=== PATIENT | female | born 1960 | race Caucasian/White ===

== ENCOUNTER 2022-08-11 07:02 | Outpatient (OUT) | payer OTHER, SELFPAY ==
--- NOTE | 2022-08-11 07:30 | NM_ITS ---
Patient: JUAN ANTONIO KEATING Exam Date: 08/11/2022 : 1960 Gender:F Ordering : MRS. CASSANDRA RITCHIE RECORDS OFFICER-C Admission #: [id number] Family : DR. Sudarshan Williamson . Order #: [id number] CLICK HERE TO VIEW EXAM RADIOLOGY REPORT PROCEDURE: NM NOAM PERF SPECT REST STR COMPARISON: None. INDICATIONS: Chest pain, shortness of breath TECHNIQUE: Exam Description: Stress/Rest one day protocol gated SPECT Rest Imagin.6 mCi Tc-99m Cardiolite IV on 08/11/2022 Stress Imaging 29.7 mCi Tc-99m Cardiolite IV on 08/11/2022 Exercise Protocol: Jamin Heart Rate (bpm): Rest: 96 Max: 173 PMHR: 110 Blood Pressure: Rest: 176/78 Max: 238/76 Exercise Time: Minutes: 7 Seconds: 10 Stage Reached: Stage: 3 Mets 8.6 Symptoms: Rest and peak stress ECG findings were normal and the exercise portion of the study was abnormal per attending physician Dr. Williamson due to elevated blood pressure. For more details please see separate cardiac stress test report. FINDINGS: QUALITY OF STUDY: Excellent. PERFUSION DEFECT: None. LOCATION: N/A SIZE: N/A. SEVERITY: N/A. TYPE: N/A. WALL MOTION: Normal. LV SIZE: Normal. 80 mL. TID / TCD: None; 0.7 LVEF: Normal. Calculated EF 83%. SUMMARY: Myocardial perfusion imaging study is NORMAL. CONCLUSION: 1. Normal myocardial perfusion scan with no reversible ischemia 2. Abnormal exercise test secondary to elevated blood pressure Dictated by: Kushal Addison MD on 08/12/2022 at 11:57 Approved by: Kushal Addison MD on 08/12/2022 at 12:10
--- NOTE | 2022-08-11 10:59 | P.STRESS_ITS ---
Stress Test Stress Test Requesting physician: CASSANDRA RITCHIE Procedure: Exercise Cardiolite stress test. General Information: Reason for Stress Test: Dyspena, chest heaviness Cardiac History and Risk Factors: Denies personal history. Sister has a long QT . Resting 12 - Lead Electrocardiogram: Rate & rhythm: Normal sinus at a rate of 97. [place]: Right deviation T-waves: Inverted in lead aVL, biphasic in lead V3 ST-segments: Normal Other findings: Incomplete right bundle branch block Stress Test: Protocol: Jamin protocol was followed, with injection of Cardiolite once target heart rate was achieved. Exercise capacity: Good exercise capacity. Total exercise time of 7 minutes 11 seconds reached Jamin stage 3 at 3.4MPH, 14% grade, & 8.6 METs. Blood pressure: Initial: 176/78, Maximum: 238/76, Recovery: 188/68 Rate & rhythm: Patient remained in sinus rhythm during the exercise and recovery portions of the study.? The maximum heart rate was 173, which was 110% of the maximum predicted heart rate 157. ST-segments & T-waves: No ST-segment changes when compared to the baseline EKG. T-waves in V3 assumed a more positive orientation during recovery. Patient response/symptoms: There were no symptoms similar to the chief complaint. Interpretation: Normal exercise test. Elevated blood pressure prior to testing (SBP 176) increased 2 minutes into recovery (SBP 232). Cardiolite imaging interpretation will be reported separately. Clinical correlation required.?
== END 2022-08-11 07:03 | disposition home or self-care (01) ==
PROVIDERS: PCP Family Medicine; Visit Provider Nurse Practitioner Family
DX: R06.00 Dyspnea, unspecified (principal); R07.9 Chest pain, unspecified; T73.3XXA Exhaustion due to excessive exertion, initial encounter
CPT/HCPCS: 78452; 93017; A9500

== ENCOUNTER 2022-11-30 07:28 | Outpatient (OUT) | payer OTHER, SELFPAY ==
[2022-11-30 10:49] LABS: Alanine Aminotransferase 60 U/L (14-59); Albumin Globulin Ratio 1.1; Albumin Level 3.8 g/dL (3.4-5.0); Alkaline Phosphatase 190 U/L (46-116); Aspartate Amino Transferase 39 U/L (15-37); Bilirubin Direct 0.2 mg/dL (0.0-0.2); Bilirubin Total 1.2 mg/dL (0.2-1.0); Globulin 3.6 g/dL; Thyroid Stimulating Hormone <0.007 uIU/mL (0.358-3.740); Total Protein 7.4 g/dL (6.4-8.2)
[2022-12-01 15:11] LABS: Thyroglobulin Antibody 482.2 IU/mL (0.0-0.9); Thyroid Peroxidase (TPO) Ab >600 IU/mL (0-34)
[2022-12-02 04:07] LABS: Thyrotropin Receptor Ab, Serum 2.65 IU/L (0.00-1.75)
== END 2022-11-30 07:29 | disposition home or self-care (01) ==
PROVIDERS: PCP Family Medicine; Visit Provider Internal Medicine
DX: E05.90 Thyrotoxicosis, unspecified without thyrotoxic crisis or storm (principal); E05.20 Thyrotoxicosis with toxic multinodular goiter without thyrotoxic crisis or storm
CPT/HCPCS: 36415; 80076; 83520; 84439; 84443; 84481; 86376; 86800

== ENCOUNTER 2022-12-29 08:50 | Outpatient (OUT) | payer OTHER, SELFPAY ==
--- NOTE | 2022-12-29 08:54 | MM_ITS ---
Patient Name: JUAN ANTONIO KEATING MR#: [id number] : 1960 Exam Date: 12/29/2022 Ordering Doctor: DR MARY ANN DOMINGUEZ M.D. RADIOLOGY REPORT PROCEDURE: MM TOMOSYNTHESIS SCREENING BI COMPARISON: MG MAMM SCREEN 3D KELLEY CAD, 12/20/2020. MG MAMM SCREEN 3D KELLEY CAD, 12/24/2021. INDICATIONS: Screening Calculator Name NCI Breast Cancer Risk Assessment Tool 5 Year Breast Cancer Risk 1.20% Lifetime Breast Cancer Risk 4.70% Personal Breast Cancer No Personal Ovarian Cancer No Treatments None Family Cancers None LOCATION: [facility] BREAST COMPOSITION: Extremely dense, which lowers the sensitivity of mammography. FINDINGS: DIAGNOSTIC CATEGORY 2--BENIGN FINDING. NO CHANGE FROM COMPARISON. Scattered benign-appearing calcifications are present. Scattered benign-appearing nodules are present. RIGHT BREAST: No significant suspicious finding. LEFT BREAST: No significant suspicious finding. RECOMMENDATIONS: ROUTINE MAMMOGRAM AND CLINICAL EVALUATION IN 12 MONTHS. PLEASE NOTE: A NORMAL MAMMOGRAM DOES NOT EXCLUDE THE POSSIBILITY OF BREAST CANCER. A CLINICALLY SUSPICIOUS PALPABLE LUMP SHOULD BE BIOPSIED. Dictated by: Kushal Addison MD on 12/30/2022 at 07:41 Approved by: Kushal Addison MD on 12/30/2022 at 07:44
== END 2022-12-29 08:51 | disposition home or self-care (01) ==
LOC: MAMMO 08:50
PROVIDERS: PCP Family Medicine; Visit Provider Family Medicine
DX: Z12.31 Encounter for screening mammogram for malignant neoplasm of breast (principal)
CPT/HCPCS: 77063; 77067

== ENCOUNTER 2023-01-08 07:55 | Outpatient (OUT) | payer OTHER, SELFPAY ==
[2023-01-08 08:39] LABS: Alanine Aminotransferase 35 U/L (14-59); Albumin Globulin Ratio 0.9; Albumin Level 3.7 g/dL (3.4-5.0); Alkaline Phosphatase 243 U/L (46-116); Aspartate Amino Transferase 24 U/L (15-37); Bilirubin Direct 0.2 mg/dL (0.0-0.2); Thyroid Stimulating Hormone <0.007 uIU/mL (0.358-3.740); Total Protein 7.7 g/dL (6.4-8.2)
[2023-01-08 09:13] LABS: Free T4 0.89 ng/dL (0.76-1.46)
== END 2023-01-08 07:56 | disposition home or self-care (01) ==
LOC: LAB 07:56
PROVIDERS: PCP Family Medicine; Visit Provider Internal Medicine
DX: E05.90 Thyrotoxicosis, unspecified without thyrotoxic crisis or storm (principal); E05.00 Thyrotoxicosis with diffuse goiter without thyrotoxic crisis or storm
CPT/HCPCS: 36415; 80076; 84439; 84443; 84481

== ENCOUNTER 2023-01-12 08:09 | Day surgery (SDC) | payer OTHER, SELFPAY ==
--- NOTE | 2023-01-12 08:17 | US_ITS ---
[address] [address] Patient Name: JUAN ANTONIO KEATING MRN: [id number] date: 1960 Sex: F Assigned Patient Location: US Current Patient Location: US Accession/Order Number: [id number] Exam Date: 01/12/2023 08:40 Report Date: 01/12/2023 09:35 At the request of: ONOFRE HADLEY Procedure: US biopsy thyroid EXAMINATION: US biopsy thyroid, US biopsy FNA add lesion HISTORY: Thyroid Nodule COMPARISON: Ultrasound thyroid 12/22/2022 TECHNIQUE: After obtaining informed consent, ultrasound-guided fine needle aspiration was performed in the usual sterile manner. FINDINGS: IMAGING: Ultrasound. BIOPSY NEEDLE: 25-gauge; 3 separate passes within both nodules. LOCATION: Left thyroid lobe mid body 1.9 x 1.6 x 1.2 cm heterogeneous isoechoic nodule. Left thyroid lobe inferior pole 1.3 x 1.3 x 0.8 cm heterogeneous isoechoic nodule with internal calcification. SPECIMEN TYPE: Cellular tissue. LOCAL ANESTHETIC: Buffered Xylocaine. COMPLICATIONS: None. LABORATORY: Prepared slide smears and washings for cell block evaluation. OTHER: Negative. PATHOLOGY: Pending. An addendum will be added when results are available. US/US biopsy thyroid IMPRESSION: 1. Uneventful ultrasound guided fine needle aspiration (FNA). 2. Pathology results are pending. Electronically authenticated by: DEAN DAVALOS Date: 01/12/2023 09:35
[2023-01-12 08:20] VITALS: BP 161/106; PULSE 63; O2SAT 100
--- NOTE | 2023-01-12 08:21 | US_ITS ---
[address] [address] Patient Name: JUAN ANTONIO KEATING MRN: [id number] date: 1960 Sex: F Assigned Patient Location: US Current Patient Location: US Accession/Order Number: [id number] Exam Date: 01/12/2023 08:40 Report Date: 01/12/2023 09:35 At the request of: ONOFRE HADLEY Procedure: US biopsy FNA add lesion EXAMINATION: US biopsy thyroid, US biopsy FNA add lesion HISTORY: Thyroid Nodule COMPARISON: Ultrasound thyroid 12/22/2022 TECHNIQUE: After obtaining informed consent, ultrasound-guided fine needle aspiration was performed in the usual sterile manner. FINDINGS: IMAGING: Ultrasound. BIOPSY NEEDLE: 25-gauge; 3 separate passes within both nodules. LOCATION: Left thyroid lobe mid body 1.9 x 1.6 x 1.2 cm heterogeneous isoechoic nodule. Left thyroid lobe inferior pole 1.3 x 1.3 x 0.8 cm heterogeneous isoechoic nodule with internal calcification. SPECIMEN TYPE: Cellular tissue. LOCAL ANESTHETIC: Buffered Xylocaine. COMPLICATIONS: None. LABORATORY: Prepared slide smears and washings for cell block evaluation. OTHER: Negative. PATHOLOGY: Pending. An addendum will be added when results are available. US/US biopsy FNA add lesion IMPRESSION: 1. Uneventful ultrasound guided fine needle aspiration (FNA). 2. Pathology results are pending. Electronically authenticated by: DEAN DAVALOS Date: 01/12/2023 09:35
[2023-01-12] MEDS: LIDOCAINE HCL 10 ML, SODIUM BICARBONATE 1 MEQ INJ (09:00)
== END 2023-01-12 09:25 | disposition home or self-care (01) ==
LOC: US 08:09
PROVIDERS: Radiology Diagnostic Radiology; PCP Family Medicine; Visit Provider Otolaryngology
DX: E04.1 Nontoxic single thyroid nodule (principal)
CPT/HCPCS: 10005; 10006; 88173

== ENCOUNTER 2023-04-06 07:19 | Outpatient (OUT) | payer OTHER, SELFPAY ==
--- OUTSIDE RECORDS SUMMARY | 2023-04-06 07:23 | XMS_ITS | CCD ---
Author Name Unknown Address [address] [place] [address] Organization [facility] Care Team Providers Care Linux Vmware Administrator Name Role Phone ANGELICA, DR REESE Attending Unavailable ANGELICA, DR REESE Consulting Unavailable ANGELICA, DR REESE Primary Care Unavailable ANGELICA, DR REESE Admitting Unavailable WEST, DR ALFREDO Latham Consulting Unavailable ONOFRE HADLEY Attending Unavailable MARY ANN DOMINGUEZ Referring Unavailable ONOFRE HADLEY Attending Unavailable ONOFRE HADLEY Referring Unavailable Problems Problem Classification Problem Date Documented Da te Episodic/Chronic Other screening for suspected conditions (not mental disorders or infectious disease) (4 sources) Encounter for screening mammogram for malignant neoplasm of breast; Translations: [ENC SCR MAMMO MALIG NEOPLASM BREAST] Onset: 12-24-2021 Episodic Results Test Name Value Interpretation Reference Range Facil ity US THYROIDon 12-22-2022 US THYROID FINDINGS: Right lobe thyroid measures 4.6 x 1.8 x 1.4 cm. Left lobe thyroid measures 5.0 x 2.1 x 2.2 cm. Isthmus measures 3 mm. Thyroid heterogenous containing multiple nodules. This includes: In the right lobe, upper pole, a 5 x 4 x 2 mm cystic, anechoic, wider than tall, smoothly marginated, noncalcified nodule is identified (TR 1). In the right lobe, midpole, a 5 x 4 x 7 mm mixed cystic and solid, isoechoic, wider than tall, ill-defined, noncalcified nodule is identified (TR 2). In the left lobe, lower pole, a 2.3 x 1.5 x 1.2 cm nearly completely solid, isoechoic, taller than wide, smoothly marginated, noncalcified nodule is identified (TR 4). In the left lobe, mid to lower pole, a 1.5 x 1.7 x 0.9 cm mixed cystic and solid, isoechoic, wider than tall, ill-defined, noncalcified nodule is identified (TR 2). IMPRESSION: Impression: 5 x 4 x 2 mm benign appearing nodule, upper pole right lobe. No further work-up required. 5 x 4 x 7 mm nonsuspicious nodule midpole right lobe. No further work-up required. 2.3 x 1.5 x 1.2 cm moderately suspicious nodule, left lobe lower pole. Biopsy recommended. 1.5 x 1.7 x 0.9 cm nonsuspicious nodule, left lobe mid to lower pole. No further work-up required. ELECTRONICALLY SIGNED BY: Mitchell Woods MD Normal Not Available MG MAMM SCREEN 3D KELLEY CADon 12-24-2021 MG MAMM SCREEN 3D KELLEY CAD Patient: JUAN ANTONIO KEATING Exam Date: 12/24/2021 : 1960 Gender:F Ordering : DR MARY ANN DOMINGUEZ M.D. Admission #: [id number] Family : Order #: [id number] CLICK HERE TO VIEW EXAM RADIOLOGY REPORT PROCEDURE: MAMMOGRAM SCREENING 3D BILATERAL CAD COMPARISON: MG MAMM SCREEN KELLEY W CAD, 12/20/2019. MG MAMM SCREEN 3D KELLEY CAD, 12/20/2020. INDICATIONS: Screening mammography Calculator Name NCI Breast Cancer Risk Assessment Tool 5 Year Breast Cancer Risk 1.10% Lifetime Breast Cancer Risk 4.90% Personal Breast Cancer No Personal Ovarian Cancer No Treatments None Family Cancers None LOCATION: [facility] BREAST COMPOSITION: Extremely dense, which lowers the sensitivity of mammography. FINDINGS: DIAGNOSTIC CATEGORY 2--BENIGN FINDING. NO CHANGE FROM COMPARISON. Scattered benign-appearing calcifications are present. RIGHT BREAST: No significant suspicious finding. LEFT BREAST: No significant suspicious finding. RECOMMENDATIONS: ROUTINE MAMMOGRAM AND CLINICAL EVALUATION IN 12 MONTHS. PLEASE NOTE: A NORMAL MAMMOGRAM DOES NOT EXCLUDE THE POSSIBILITY OF BREAST CANCER. A CLINICALLY SUSPICIOUS PALPABLE LUMP SHOULD BE BIOPSIED. Dictated by: Alfredo Addison MD on 12/24/2021 at 10:22 Approved by: Alfredo Addison MD on 12/24/2021 at 10:32 Normal [facility] Encounters Encounter Date Encounter Type Care Provider Facility Start: 02-17-2023 End: 02-17-2023 ambulatory ONOFRE H TIMMIS Not Available Start: 01-04-2023 End: 01-04-2023 ambulatory ONOFRE [place] TIMMIS Not Available Start: 12-22-2022 End: 12-23-2022 ambulatory ONOFRE [place] TIMMIS Not Available Start: 12-24-2021 End: 12-25-[address] MARY ANN DOMINGUEZ Facility:[id number] Payers Date Payer Category Payer Unknown [id number] 1960 Unknown [id number] 1960 Unknown [id number] 1960 Unknown [id number] 1960 Unknown [id number] Summary Purpose Family History No Family History Records FoundNo Family History Records Found Advance Directives No Advanced Directives Records FoundNo Advanced Directives Records Found Additional Source Comments INFORMATION SOURCE (unrecogn ized section and content) DATE CREATED AUTHOR 12/29/2021 [facility] DATE CREATED AUTHOR AUTHOR'S WHITNEY BEARD 02/18/2023 [facility] EPIC FOR RECORDS PERTAINING TO PATIENTS WHO ARE OR HAVE BEEN ENROLLED IN A CHEMICAL DEPENDENCY/SUBSTANCEABUSE PROGRAM, SOME INFORMATION MAY BE OMITTED. This clinical summary was aggregated from multiple sources. Caution should be exercised in using it in the provision of clinical care. This summary normalizes information from multiple sources, and as a consequence, information in this document may materially change the coding, format and clinical context of patient data. In addition, data may be omitted in some cases. CLINICAL DECISIONS SHOULD BE BASED ON THE PRIMARY CLINICAL RECORDS. [employer] provides no warranty or guarantee of the accuracy or completeness of information in this document.
[2023-04-06 08:16] LABS: Alanine Aminotransferase 29 U/L (14-59); Albumin Level 3.7 g/dL (3.4-5.0); Alkaline Phosphatase 171 U/L (46-116); Aspartate Amino Transferase 25 U/L (15-37); Bilirubin Direct 0.1 mg/dL (0.0-0.2); Free T3 2.44 pg/mL (2.18-3.98); Globulin 3.7 g/dL; Thyroid Stimulating Hormone 3.581 uIU/mL (0.358-3.740); Total Protein 7.4 g/dL (6.4-8.2)
[2023-04-06 09:20] LABS: Free T4 0.86 ng/dL (0.76-1.46)
== END 2023-04-06 07:20 | disposition home or self-care (01) ==
LOC: LAB 07:21
PROVIDERS: PCP Family Medicine; Visit Provider Internal Medicine
DX: E05.90 Thyrotoxicosis, unspecified without thyrotoxic crisis or storm (principal); E05.00 Thyrotoxicosis with diffuse goiter without thyrotoxic crisis or storm
CPT/HCPCS: 36415; 80076; 84439; 84443; 84481

== ENCOUNTER 2023-08-03 07:01 | Outpatient (OUT) | payer OTHER, SELFPAY ==
[2023-08-03 08:40] LABS: Anion Gap 12.7; BUN Creatinine Ratio 11.4; Calcium 8.7 mg/dL (8.5-10.1); Carbon Dioxide 27.4 mmol/L (21.0-32.0); Chloride 99 mmol/L (98-107); Estimated GFR (African America >60 (>=60); Estimated GFR (Non-African Ame >60 (>=60); Free T3 1.96 pg/mL (2.18-3.98); Glucose 86 mg/dL (74-106); Potassium 4.1 mmol/L (3.5-5.1); Sodium 135 mmol/L (136-145); Thyroid Stimulating Hormone 24.057 uIU/mL (0.358-3.740)
== END 2023-08-03 07:02 | disposition home or self-care (01) ==
LOC: LAB 07:03
PROVIDERS: PCP Family Medicine; Visit Provider Internal Medicine
DX: E05.00 Thyrotoxicosis with diffuse goiter without thyrotoxic crisis or storm (principal); E05.90 Thyrotoxicosis, unspecified without thyrotoxic crisis or storm; E55.9 Vitamin D deficiency, unspecified
CPT/HCPCS: 36415; 80048; 82306; 84439; 84443; 84481

== ENCOUNTER 2023-12-03 07:03 | Outpatient (OUT) | payer OTHER, SELFPAY ==
--- OUTSIDE RECORDS SUMMARY | 2023-12-03 07:07 | XMS_ITS | CCD ---
Author Organization [facility] ion [facility] Care Team Providers Care Clinical Data Assistant Name Role Phone ANGELICA, DR REESE Attending Unavailable ANGELICA, DR REESE Consulting Unavailable ANGELICA, DR REESE Primary Care Unavailable ANGELICA, DR REESE Admitting Unavailable WEST, DR ALFREDO Latham Consulting Unavailable TIMOTHY DOMINGUEZ Primary Care Physician [phone] Cecy Lockhart H Referring Unavailable TimmisCecy Attending Unavailable TimmisCecy H Admitting Unavailable MurceDO Mitchell alberto Attending Provider [phone] MD Timothy Dominguez Primary Care Provider [phone] Mitchell Nelson Admitting Unavailable Murcek, Mitchell Attending Unavailable Timothy Dominguez Primary Care Unavailable Murceremy, Mitchell Attending Unavailable MurMitchell mcclure Admitting Unavailable Maple SpringsTimothy blair Primary Care Unavailable Timothy Dominguez Primary Care Unavailable MurceMitchell alberto Admitting Unavailable Murcek, Mitchell Attending Unavailable MurceMitchell alberto Admitting Unavailable MurcekMitchell Attending Unavailable Timothy Dominguez Primary Care Unavailable TIMMIS, CECY H Attending Unavailable ANGELICATIMOTHY Referring Unavailable TIMMIS, CECY H Attending Unavailable TIMMIS, CECY H Attending Unavailable ANGELICATIMOTHY Blair Attending Unavailable MURCEMITCHELL Alberto W Attending Unavailable TIMMISCECY H Referring Unavailable MURCEKMITCHELL W Attending Unavailable MURCEKMITCHELL W Attending Unavailable MURCEKMITCHELL W Attending Unavailable TIMMIS, CECY H Referring Unavailable ANGELICATIMOTHY Blair Attending Unavailable Medications Current Medications Medication Drug Class(es) Dates Sig (Normalized) Sig (Original) atorvastatin 20 mg oral tablet (5 sources) HMG-CoA Reductase Inhibitor Start: 07-01-2023 take 20 mg by mouth once daily in the morning Atorvastatin Active 20 MG PO Every morning July 01, 2023 12:00am Start: 05-19-2023 take 1 tablet by rob th once daily atorvastatin 20 mg Tab 20 mg = 1 tab(s), Oral, Daily, Refills(s) 0, High cholesterol Start Date: 05/19/23 Status: Ordered Calcium (2 sources) Phosphate Binder, Calcium Start: 05-19-2023 calcium (as carbonate) 500 mg oral tablet Refills(s) 0 Start Date: 05/19/23 Status: Ordered Fish Oils (2 sources) Start: 05-19-2023 Fish Oil Refill(s) 0 Start Date: 05/19/23 Status: Ordered Magnesium Oxide (2 sources) Start: 05-19-2023 magnesium oxid e Refills(s) 0 Start Date: 05/19/23 Status: Ordered 24 hr metoprolol succinate 25 mg extended release oral tablet (5 sources) beta-Adrenergic Home Start: 07-01-2023 take 25 mg by mouth once daily in the morning Metoprolol Succinate Active 25 MG PO Every morning July 01, 2023 12:00am Start: 05-19-2023 take 1 tablet by rob th once daily metoprolol 25 mg ER Tab 25 mg = 1 tab(s), Oral, Daily, Refills(s) 0, High blood pressure Start Date: 05/19/23 Status: Ordered Multivitamin preparation (2 sources) Start: 05-19-2023 multivitamin Refill(s) 0 Start Date: 05/19/23 Status: Ordered olmesartan medoxomil 20 mg oral tablet (5 sources) Angiotensin 2 Receptor Home Start: 07-01-2023 take 20 mg by mouth once daily in the morning Olmesartan Active 20 MG PO Every morning July 01, 2023 12:00am Start: 05-19-2023 take 1 tablet by rob th once daily olmesartan 20 mg Tab 20 mg = 1 tab(s), Oral, Daily, Refills(s) 0, High blood pressure Start Date: 05/19/23 Status: Ordered Completed/Discontinued Medications Medication Drug Class(es) Dates Sig (Normalized) Sig (Original) methIMAzole 10 mg oral tablet (5 sources) Thyroid Hormone Synthesis Inhibitor Start: 07-01-2023 End: 05-30-2024 take 10 mg by mouth five times weekly Methimazole Discontinued 10 MG PO 5 TIMES PER WEEK July 01, 2023 12:00am July 15, 2023 9:38am Start: 05-19-2023 methimazole 10 mg Tab See Instructions, 1 tab(s) Oral, Refills(s) 0, Thyroid Start Date: 05/19/23 Status: Ordered Problems Problem Classification Problem Date Documented Date Episodic/Chronic Disorders of lipid metabolism (2 sources) Hyperlipidemia 05-19-2023 Chronic Essential hypertension (2 sources) Hypertensive disorder 05-19-2023 Chronic Other screening for suspected conditions (not mental disorders or infectious disease) (4 sources) Encounter for screening mammogram for malignant neoplasm of breast; Translations: [ENC SCR MAMMO MALIG NEOPLASM BREAST] Onset: 12-24-2021 Episodic Ovarian cyst (2 sources) Cyst of ovary 05-19-2023 Episodic Thyroid disorders (3 sources) Hyperthyroidism; 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 Performed By: #### T 3T, TSH3, T4T #### [facility] [address] Thyroxine (T4) [Mass/volume] in Serum or PlasmaOrdered By: Mitchell Nelson on 08-16-2023 T4 [Mass/Vol] 12.56 ug/dL High 5.39-11.82 [facility] Comment on above: Performed By: #### T 3T, TSH3, T4T #### [facility] [address] [place] [address] [place] Triiodothyronine (T3) Totalo n 08-16-2023 Triiodothyronine (T3) Total 1.11 ng/mL Normal 0.87-1.78 [facility] Comment on above: Performed By: #### T 3T, TSH3, T4T #### [facility] [address] [place] [address] Triiodothyronine (T3) [Mass/ volume] in Serum or PlasmaOrdered By: Mitchell Nelson on 08-16-2023 T3 [Mass/Vol] 1.11 ng/mL 0.87-1.78 [facility] Calcium [Mass/volume] in Ser um or PlasmaOrdered By: Mitchell Nelson on 07-15-2023 Calcium [Mass/Vol] 9.2 mg/dL Normal 8.6-10.3 [facility] Comment on above: Order Comment: Comme nt Call to Dr. Nelson Result Comment: PERF ORMED BY: [place] [address] PATHOLOGIST ART GALLERY DIRECTOR LINDA QUINN M.D. Performed By: #### P TH, CA #### [facility] [address] [place] [address] Luis Angel 07-15-2023 L Specimen: [id number] Received: 07/15/23 Status: SOUAta Bojorquez Num: [id number] Spec Type: Surgical Subm Dr: Mitchell Nelson DO Tissues: A THYROID - Lobe (LT LOBE/ISTHMUS) B THYROID - Lobe (RT LOBE) Procedures: HE/10, Gross/Micro L5/2 Age/ Patient Sex Location Account Attending Physician Key Baca 62/F [place] [id number] Mitchell Nelson DO SPEC NUM: [id number] RECD: 07/15/23 STATUS: SOUT REQ NUM: [id number] ESTRADA: 07/15/[address]: Mitchell Nelson DO ENTERED: 07/15/[address]: SPEC TYPE: Surgical DEPT: S ORDERED: HE/10, Gross/Micro L5/2 ORDERED: HE/10, Gross/Micro L5/2 Pathological Diagnosis A. Thyroid, left lobe, lobectomy: - Benign thyroid tissue with diffuse hyperplastic changes and lymphoid aggregates with occasional germinal center, compatible with Graves disease B. Thyroid, right lobe, lobectomy: - Benign thyroid tissue with diffuse hyperplastic changes and lymphoid aggregates with occasional germinal center, compatible with Graves disease - One reactive lymph node (0/1) Gross Description The specimen is labeled left lobe and isthmus. Specimen consists of thyroid lobe 4.7 x 2.8 x 2.2 cm. All margins are inked blue. Serial sectioning reveals a multinodular blackburn to dark brown cut surface. Associate Accountant sections and 5 cassettes. B. Specimen is labeled right lobe. Specimen consists of a thyroid lobe 4.2 x 2.7 x 2 cm. All outer surfaces are inked blue. Reveals a multinodular cut surface. Submitted all in 5 cassettes. Specimen: [id number] Received: 07/15/23 Status: ANDRY [place] Num: [id number] Spec Type: Surgical Subm Dr: Mitchell Nelson DO Tissues: A THYROID - Lobe (LT LOBE/ISTHMUS) B THYROID - Lobe (RT LOBE) Procedures: , Gross/Micro L5/2 Patient: Key Baca [id number] (Continued) Specimen: [id number] Received: 07/15/23 (Continued) Signed (signature on file) Conner Kmi MD 07/16/23 1804 Specimen: Received: 07/15/23 Status: ANDRY Bojorquez Num: [id number] Spec Type: Surgical Subm Dr: Mitchell Nelson DO Tissues: A THYROID - Lobe (LT LOBE/ISTHMUS) B THYROID - Lobe (RT LOBE) Procedures: Anny, Gross/Micro L5/2 Patient: Key Baca [id number] (Continued) Specimen: Received: 07/15/23 (Continued) CPT Codes 33698s2 Specimen: [id number] Received: 07/15/23 Status: ANDRY Bojorquez Num: [id number] Spec Type: Surgical Subm Dr: Mitchell Nelson DO Tissues: A THYROID - Lobe (LT LOBE/ISTHMUS) B THYROID - Lobe (RT LOBE) Procedures: /Miquel Mccormick/Vickie L5/2 Patient: Key Baca [id number] (Continued) Signed (signature on file) Conner Kim MD 07/16/23 1468 Normal [facility] Parathyrin.intact [Mass/volu me] in Serum or PlasmaOrdered By: Mitchell Nelson on 07-15-2023 Parathyrin.intact [Mass/Vol] 21.4 pg/mL [facility] Parathyroid Hormone Intacton 07-15-2023 Parathyroid Hormone Intact 21.4 pg/mL Normal [facility] Comment on above: Order Comment: Comme nt Call to Dr. Nelson Result Comment: PERF ORMED BY: [place] [address] PATHOLOGIST ART GALLERY DIRECTOR LINDA QUINN M.D. Performed By: #### P TH, [place] #### [address] Automated basophil %Ordered By: Mitchell Nelson on 07-01-2023 Basophils/100 WBC (Bld) 0.7 % Normal . [facility] Comment on above: Performed By: #### C BC #### [address] Automated basophil countOrde red By: Mitchell Nelson on 07-01-2023 Basophils (Bld) [#/Vol] 0.0 10*3/uL Normal 0.0-0.2 [facility] Comment on above: Result Comment: PERF ORMED BY: [place] [address] PATHOLOGIST ART GALLERY DIRECTOR LINDA QUINN M.D. Performed By: #### C BC #### [address] Automated blood monocyte cou ntOrdered By: Mitchell Nelson on 07-01-2023 Monocytes (Bld) [#/Vol] 0.4 10*3/uL Normal 0.0-0.8 [facility] Comment on above: Performed By: #### C BC #### [address] Automated eosinophil %Ordere d By: Mitchell Nelson on 07-01-2023 Eosinophils/100 WBC (Bld) 2.8 % Normal . [facility] Comment on above: Performed By: #### C BC #### [address] Automated eosinophil countOr dered By: Mitchell Nelson on 07-01-2023 Eosinophils (Bld) [#/Vol] 0.1 10*3/uL Normal 0.0-0.45 [facility] Comment on above: Performed By: #### C BC #### [address] Automated monocyte %Ordered By: Mitchell Nelson on 07-01-2023 Monocytes/100 WBC (Bld) 10.2 % Normal . [facility] Comment on above: Performed By: #### C BC #### [address] Automated neutrophil %Ordere d By: Mitchell Nelson on 07-01-2023 Neutrophils/100 WBC (Bld) 33.9 % Normal . [facility] Comment on above: Performed By: #### C BC #### [address] Basic Metabolic Panelon 06-15 GFR/1.73 sq M.predicted MDRD (S/P/Bld) [Vol rate/Area] mL/min/{1.73_m2} Normal [facility] Comment on above: Performed By: #### B TADEO, TSH3 #### [address] Calcium [Mass/volume] in Ser um or PlasmaOrdered By: Mitchell Nelson on 07-01-2023 Calcium [Mass/Vol] 9.1 mg/dL Normal 8.6-10.3 [facility] Comment on above: Performed By: #### B TADEO, TSH3 #### [address] Carbon dioxide, total [Moles /volume] in Serum or PlasmaOrdered By: Mitchell Nelson on 07-01-2023 CO2 [Moles/Vol] 28.2 mmol/L Normal 21.0-31.0 [facility] Comment on above: Performed By: #### B MP, TSH3 #### [address] Chloride [Moles/volume] in S berto or PlasmaOrdered By: Mitchell Nelson on 07-01-2023 Chloride [Moles/Vol] 101 mmol/L Normal 98-107 [facility] Comment on above: Performed By: #### B TADEO TSH3 #### [address] Complete Blood Count Auto Di ffon 07-01-2023 Mean Corpuscular HGB Conc 34.4 g/dL Normal 32.0-35.0 [facility] Comment on above: Performed By: #### C BC #### [address] NRBC% 0.1 /100{WBC} Normal 0-0.5 [facility] Comment on above: Performed By: #### C BC #### [address] Creatinine [Mass/volume] in Serum or PlasmaOrdered By: Mitchell Nelson on 07-01-2023 Creatinine [Mass/Vol] 0.78 mg/dL Normal 0.60-1.20 [facility] Comment on above: Performed By: #### B TADEO TSH3 #### [address] Erythrocyte distribution wid th [Ratio] by Automated countOrdered By: Mitchell Nelson on 07-01-2023 Erythrocyte distribution width (RBC) [Ratio] 12.6 % Normal 11.9-15.3 [facility] Comment on above: Performed By: #### C BC #### [place] [address] [place] Erythrocytes [#/volume] in B lood by Automated countOrdered By: Mitchell Nelson on 07-01-2023 RBC (Bld) [#/Vol] 3.63 10*6/uL Normal 3.60-5.00 [facility] Comment on above: Performed By: #### C BC #### [address] Glucose [Mass/volume] in Ser um or PlasmaOrdered By: Mitchell Nelson on 07-01-2023 Glucose [Mass/Vol] 99 mg/dL Normal 70-100 [facility] Comment on above: ADA recommended refe rence rangeRandom Glucose Reference Range is dependent on time and content of last meal. Glucose of more than 200 mg/dL in a nonstressed, ambulatory subject supports the diagnosis of Diabetes Mellitus. Result Comment: [place] om Glucose Reference Range is dependent on time and content of last meal. Glucose of more than 200 mg/dL in a nonstressed, ambulatory subject supports the diagnosis of Diabetes Mellitus. ADA recommended reference range Performed By: #### B MP, TSH3 #### [address] Hematocrit [Volume Fraction] of Blood by Automated countOrdered By: Mitchell Nelson on 07-01-2023 Hematocrit (Bld) [Volume fraction] 33.4 % Low 34.0-46.4 [facility] Comment on above: Performed By: #### C BC #### [address] Hemoglobin [Mass/volume] in BloodOrdered By: Mitchell Nelson on 07-01-2023 Hemoglobin (Bld) [Mass/Vol] 11.5 g/dL Low 11.8-15.4 [facility] Comment on above: Performed By: #### C BC #### [place] [address] [place] Leukocytes [#/volume] correc rj for nucleated erythrocytes in Blood by Automated counOrdered By: Mitchell Nelson on 07-01-2023 WBC corrected for nucl RBC Auto (Bld) [#/Vol] 3.7 10*3/uL Low 3.8-11.6 [facility] Leukocytes [#/volume] in Blo od by Automated countOrdered By: Mitchell Nelson on 07-01-2023 WBC (Bld) [#/Vol] 3.7 10*3/uL Low 3.8-11.6 [facility] Comment on above: Performed By: #### C BC #### [address] [address] [place] Lymphocytes [#/volume] in Bl ood by Automated countOrdered By: Mitchell Nelson on 07-01-2023 Lymphocytes (Bld) [#/Vol] 1.9 10*3/uL Normal 1.00-4.8 [facility] Comment on above: Performed By: #### C BC #### [address] Lymphocytes/100 leukocytes i n Blood by Automated countOrdered By: Mitchell Nelson on 07-01-2023 Lymphocytes/100 WBC (Bld) 52.4 % Normal . [facility] Comment on above: Performed By: #### C BC #### [address] MCH [Entitic mass] by Automa rj countOrdered By: Mitchell Nelson on 07-01-2023 MCH (RBC) [Entitic mass] 31.7 pg Normal 24.7-34.3 [facility] Comment on above: Performed By: #### C BC #### [address] MCHC Auto (RBC) [Mass/Vol]Or dered By: Mitchell Nelson on 07-01-2023 MCHC (RBC) [Mass/Vol] 34.4 g/dL 32.0-35.0 [facility] MCV [Entitic volume] by Auto mated countOrdered By: Mitchell Nelson on 07-01-2023 MCV (RBC) [Entitic vol] 92.0 fL Normal 80-100 [facility] Comment on above: Performed By: #### C BC #### [address] Neutrophils [#/volume] in Bl ood by Automated countOrdered By: Mitchell Nelson on 07-01-2023 Neutrophils (Bld) [#/Vol] 1.2 10*3/uL Low 1.8-7.7 [facility] Comment on above: Performed By: #### C BC #### [address] No Panel InformationOrdered By: Mitchell Nelson on 07-01-2023 Estimated GFR (CKD-EPI) > 60.0 mL/Min [facility] Creatinine Clearance (Chem N/A [facility] Nucleated erythrocytes [Pres ence] in Blood by Automated countOrdered By: Mtichell Nelson on 07-01-2023 Nucleated RBC Auto Ql (Bld) 0.1 /100{WBC} 0-0.5 [facility] Parathyrin.intact [Mass/volu me] in Serum or PlasmaOrdered By: Mitchell Nelson on 07-01-2023 Parathyrin.intact [Mass/Vol] 50.9 pg/mL [facility] Parathyroid Hormone Intacton 07-01-2023 Parathyroid Hormone Intact 50.9 pg/mL Normal [facility] Comment on above: Result Comment: PERF ORMED BY: [place] [address] PATHOLOGIST ART GALLERY DIRECTOR LINDA QUINN M.D. Performed By: #### P TH #### [facility] [address] [address] [place] Platelet mean volume [Entiti c volume] in Blood by Automated countOrdered By: Mitchell Nelson on 07-01-2023 Platelet mean volume (Bld) [Entitic vol] 7.3 fL Normal 6.3-10.7 [facility] Comment on above: Performed By: #### C BC #### [facility] [address] [place] [address] [place] Platelets [#/volume] in Bloo d by Automated countOrdered By: Mitchell Nelson on 07-01-2023 Platelets (Bld) [#/Vol] 234 10*3/uL Normal 150-450 [facility] Comment on above: Performed By: #### C BC #### [facility] [address] [place] [address] [place] Potassium [Moles/volume] in Serum or PlasmaOrdered By: Mitchell Nelson on 07-01-2023 Potassium [Moles/Vol] 4.2 mmol/L Normal 3.5-5.1 [facility] Comment on above: Performed By: #### B MP, TSH3 #### [address] Serum or plasma anion gap de terminationOrdered By: Mitchell Nelson on 07-01-2023 Anion gap [Moles/Vol] 10.0 mmol/L Normal 6.0-15.0 [facility] Comment on above: Performed By: #### B MP, TSH3 #### [address] Sodium [Moles/volume] in Ser um or PlasmaOrdered By: Mitchell Nelson on 07-01-2023 Sodium [Moles/Vol] 135 mmol/L Low 136-145 [facility] Comment on above: Performed By: #### B MP, TSH3 #### [address] Thyrotropin [Units/volume] i n Serum or PlasmaOrdered By: Mitchell Nelson on 07-01-2023 TSH Qn 5.37 m[IU]/L High 0.45-5.33 [facility] Comment on above: Result Comment: PERF ORMED BY: [place] [address] PATHOLOGIST ART GALLERY DIRECTOR LINDA QUINN M.D. Performed By: #### B MP, TSH3 #### [address] Urea nitrogen [Mass/volume] in Serum or PlasmaOrdered By: Mitchell Nelson on 07-01-2023 Urea nitrogen [Mass/Vol] 10 mg/dL Normal 7-25 [facility] Comment on above: Performed By: #### B MP, TSH3 #### [address] Consent for Procedure/Surger yon 05-27-2023 Consent for Procedure/Surgery [id number] 7#1.00TIFF Normal [facility] Outside Recordson 05-27-2023 Outside Records [id number] 8#1.00TIFF Normal [facility] XR Chest 2 Viewson XR Chest 2 Views Exam Date/Time: 05/19/2023 08:20 EDT Reason for Exam: P.A.T. Report IMPRESSION: No acute radiographic abnormality. EXAMINATION: XR Chest 2 Views Clinical History: P.A.T. Comparison: None RESULT: No consolidation. No pleural effusion. No pneumothorax. Normal cardiomediastinal silhouette. No acute osseous findings. Ordering Provider: Doc Bishop FINAL REPORT Dictated: 05/20/2023 4:10 pm Que Ceballos MD Signed (Electronic Signature): 05/20/2023 4:10 pm Signed by: Que Ceballos MD Transcribed by: JESSENIA Technologist: LITTLE Technical Comments Radiation Dose: Ka,r in mGy = na DAP = na Normal [facility] BMPon 05-19-2023 Anion gap [Moles/Vol] 13 mmol/L Normal 6-16 [facility] Comment on above: Performed By: #### 1 [id number], 1106918, 1604509, [id number] #### [facility] [address] [place] [address] Calcium [Mass/Vol] 9.9 mg/dL Normal 8.9-11.1 [facility] Comment on above: Performed By: #### 1 4321530, 0254041, 2051964, [id number] #### [facility] [address] [place] [address] Chloride [Moles/Vol] 102 mmol/L Normal 101-111 [facility] Comment on above: Performed By: #### 1 4387635, 1357427, 7211937, 1743441 #### [facility] [address] [place] [address] CO2 [Moles/Vol] 26 mmol/L Normal 21-31 [facility] Comment on above: Performed By: #### 1 7063961, 6494550, 1437666, 0211058 #### [facility] [address] [place] [address] Creatinine [Mass/Vol] 0.6 mg/dL Normal 0.5-1.3 [facility] Comment on above: Performed By: #### 1 5591538, 9473037, 8985997, [id number] #### [facility] [address] [place] [address] Glucose [Mass/Vol] 80 mg/dL Normal 55-199 [facility] Comment on above: Performed By: #### 1 [id number], 9555422, 6976982, 9529739 #### [facility] [address] [place] [address] Potassium [Moles/Vol] 3.9 mmol/L Normal 3.5-5.3 [facility] Comment on above: Performed By: #### 1 8880978, 2343144, 1429803, 2410729 #### [facility] [address] [place] [address] Sodium [Moles/Vol] 137 mmol/L Normal 135-145 [facility] Comment on above: Performed By: #### 1 2120763, 7070248, 0437251, 5259544 #### [facility] [address] [place] [address] Urea nitrogen [Mass/Vol] 10 mg/dL Normal 5-21 [facility] Comment on above: Performed By: #### 1 3306480, 1199768, 7260936, 6052897 #### [facility] [address] [place] [address] Urea nitrogen/Creatinine [Mass ratio] 17 No Units Normal 10-20 [facility] Comment on above: Performed By: #### 1 [id number], 5088029, 5523309, 5344510 #### [facility] [address] [place] [address] CBC w/ Auto Diffon 4 Basophils/100 WBC (Bld) 0.6 % Normal 0.0-2.0 [facility] Comment on above: Performed By: #### 2 772911, [id number] #### [facility] [address] [place] [address] Basophils/Leukocytes Auto (Bld) [Pure # fraction] 0.0 E9/L Normal 0.0-0.2 [facility] Comment on above: Performed By: #### 2 954058, [id number] #### [facility] [address] [place] [address] Eosinophils (Bld) [#/Vol] 0.1 E9/L Normal 0.0-0.5 [facility] Comment on above: Performed By: #### 2 717979, [id number] #### [facility] [address] [place] [address] Eosinophils/100 WBC (Bld) 2.6 % Normal 0.0-8.0 [facility] Comment on above: Performed By: #### 2 922037, [id number] #### [facility] [address] [place] [address] Erythrocyte distribution width (RBC) [Ratio] 12.9 % Normal 10.9-14.2 [facility] Comment on above: Performed By: #### 2 691509, [id number] #### [facility] [address] [place] [address] Hematocrit (Bld) [Volume fraction] 34.9 % Normal 34.0-46.0 [facility] Comment on above: Performed By: #### 2 276082, [id number] #### [facility] [address] [place] [address] Hemoglobin (Bld) [Mass/Vol] 11.8 g/dL Low 12.0-16.0 [facility] Comment on above: Performed By: #### 2 677815, [id number] #### [facility] [address] [place] [address] Lymphocytes (Bld) [#/Vol] 1.4 E9/L Normal 1.0-4.0 [facility] Comment on above: Performed By: #### 2 078578, [id number] #### [facility] [address] [place] [address] Lymphocytes/100 WBC (Bld) 40.0 % Normal 14.0-50.0 [facility] Comment on above: Performed By: #### 2 154036, [id number] #### [facility] [address] [place] [address] MCH (RBC) [Entitic mass] 31.5 pg Normal 27.0-34.0 [facility] Comment on above: Performed By: #### 2 872552, [id number] #### [facility] [address] [place] [address] MCHC (RBC) [Mass/Vol] 33.9 g/dL Normal 31.4-36.0 [facility] Comment on above: Performed By: #### 2 [id number] #### [facility] [address] [place] [address] MCV (RBC) [Entitic vol] 92.9 fL Normal 80.0-100.0 [facility] Comment on above: Performed By: #### 2 [id number], [id number] #### [facility] [address] [place] [address] Monocytes (Bld) [#/Vol] 0.3 E9/L Normal 0.2-1.0 [facility] Comment on above: Performed By: #### 2 [id number], [id number] #### [facility] [address] [place] [address] Neutrophils (Bld) [#/Vol] 1.6 E9/L Low 2.0-7.5 [facility] Comment on above: Performed By: #### 2 [id number], [id number] #### [facility] [address] [place] [address] Neutrophils/100 WBC (Bld) 46.8 % Normal 36.0-75.0 [facility] Comment on above: Performed By: #### 2 [id number], [id number] #### [facility] [address] [place] [address] Platelet mean volume (Bld) [Entitic vol] 7.7 fL Normal 6.4-10.8 [facility] Comment on above: Performed By: #### 2 [id number], [id number] #### [facility] [address] [place] [address] Platelets (Bld) [#/Vol] 240.0 E9/L Normal 150.0-500.0 [facility] Comment on above: Performed By: #### 2 [id number], [id number] #### [facility] [address] [place] [address] RBC (Bld) [#/Vol] 3.8 E12/L Low 4.3-5.9 [facility] Comment on above: Performed By: #### 2 [id number], [id number] #### [facility] [address] [place] [address] WBC corrected for nucl RBC Auto (Bld) [#/Vol] 3.4 E9/L Low 4.0-11.0 [facility] Comment on above: Performed By: #### 2 [id number], [id number] #### [facility] [address] [place] [address] CHEMISTRYOrdered By: SYSTEM SYSTEM on 05-19-2023 Anion gap [Moles/Vol] 13 mmol/L Normal 6 - 16 mEq/L R emisol Chem Calcium [Mass/Vol] 9.9 mg/dL Normal 8.9 - 11. 1 mg/dL Remisol Chem Chloride [Moles/Vol] 102 mmol/L Normal 101 - 1 11 mmol/L Remisol Chem CO2 [Moles/Vol] 26 mmol/L Normal 21 - 31 mmol/L Remisol Chem Creatinine [Mass/Vol] 0.6 mg/dL Normal 0.5 - 1.3 mg/dL Remisol Chem eGFR 100 mL/min/1.73 m2 Normal >=59mL/mi n/1 .73 m2 Remisol Chem Glucose [Mass/Vol] 80 mg/dL Normal 55 - 199 mg/dL Remisol Chem Magnesium [Mass/Vol] 2.1 mg/dL Normal 1.3 - 2 .4 mg/dL Remisol Chem Phosphate [Mass/Vol] 3.7 mg/dL Normal 1.9 - 4 .6 mg/dL Remisol Chem Potassium [Moles/Vol] 3.9 mmol/L Normal 3.5 - 5.3 mmol/L Remisol Chem Sodium [Moles/Vol] 137 mmol/L Normal 135 - 145 mmol/L Remisol Chem Urea nitrogen [Mass/Vol] 10 mg/dL Normal 5 - 21 mg/d L Remisol Chem Urea nitrogen/Creatinine [Mass ratio] 17 mg/mg Normal 10 - 20 Remisol Chem COAGULATIONOrdered By: Lakeisha White on 05-19-2023 aPTT Coag (PPP) [Time] 33.6 s Normal 25.1 - 36.5 second(s) [facility] Comment on above: Interpretive Data: Aristides ramirez 15 days - 4 weeks 1 - 5 months 6 - 11 months 1 - 5 years 6 - 10 years 11 - 17 years PTT Mean: 35.4 (27.6-45.6) Mean: 33.5 (24.8-40.7) Mean: 32.4 (25.1-40.7) Mean: 31.6 (24.0-39.2) Mean: 31.6 (26.9-38.7) Mean: 31.0 (24.6-38.4) Pediatric Reference ranges were obtained from a study by Alex Caldwell et al. prepared from 1437 samples obtained at 7 different centers using the same coagulation reagent and instrumentation as [facility]. Currently there are no coagulation studies available worldwide for children to 14 days, and no normal ranges. Heparin therapeutic range (represented by Anti-Factor Xa activity of 0.2 - 0.4 U/mL) corresponds to PTT of 56.6 - 109.0 sec. INR Coag (PPP) [Relative time] 0.98 {INR} Invalid Interpretation Code [facility] Comment on above: Interpretive Data: I NR results are specifically intended to assess patients stabilized on long-term Anticoagulation therapy suggested INR s Less Intensive Anticoagulation 2.0 3.0 Conventional Range 3.0 4.5 PT Coag (PPP) [Time] 11.0 s Normal 9.4 - 1 2.5 second(s) [facility] Comment on above: Interpretive Data: 1 5 days - 4 weeks 1 - 5 months 6 -11 months 1-5 years 6-10 years 11 -17 years Mean: 11.2 (9.5-12.6) Mean: 11.0 (9.7-12.8) Mean: 11.0 (9.8-13.0) Mean: 11.3 (9.9-13.4) Mean: 11.7 (10.0-14.6) Mean: 11.8 (10.0 - 14.1) Pediatric Reference ranges were obtained from a study by Alex Caldwell et al. prepared from 1437 samples obtained at 7 different centers using the same coagulation reagent and instrumentation as [facility]. Currently there are no coagulation studies available worldwide for children to 14 days, and no normal ranges. Consent for Treatmenton Consent for Treatment [id number] #1.00TIFF Normal [facility] HEMATOLOGYOrdered By: SYSTEM SYSTEM on 05-19-2023 Basophils/100 WBC (Bld) 0.6 % Normal 0.0 - 2.0 % Remisol Heme Basophils/Leukocytes Auto (Bld) [Pure # fraction] 0.0 E9/L Normal 0.0 - 0.2 E9/L Rem[facility] Heme Eosinophils (Bld) [#/Vol] 0.1 E9/L Normal 0.0 - 0.5 E9/L Remisol Heme Eosinophils/100 WBC (Bld) 2.6 % Normal 0.0 - 8.0 % Rem[facility]e Erythrocyte distribution width (RBC) [Ratio] 12.9 % Normal 10.9 - 14.2 % Rem[facility] Hematocrit (Bld) [Volume fraction] 34.9 % Normal 34.0 - 46.0 % Rem[facility]e Hemoglobin (Bld) [Mass/Vol] 11.8 g/dL Low 12.0 - 16.0 gm/dL [facility] Lymphocytes (Bld) [#/Vol] 1.4 E9/L Normal 1.0 - 4.0 E9/L [facility]e Lymphocytes/100 WBC (Bld) 40.0 % Normal 14.0 - 50.0 % Rem[facility]e MCH (RBC) [Entitic mass] 31.5 pg Normal 27. 0 - 34.0 pg Remisol Heme MCHC (RBC) [Mass/Vol] 33.9 g/dL Normal 31.4 - 36.0 gm/dL Rem[facility] Heme MCV (RBC) [Entitic vol] 92.9 fL Normal 80.0 - 100.0 fL [facility] Heme Monocytes (Bld) [#/Vol] 0.3 E9/L Normal 0.2 - 1.0 E9/L Rem[facility] Heme Monocytes/100 WBC (Bld) 10.0 % Normal 4.0 - 14.0 % [facility] Neutrophils (Bld) [#/Vol] 1.6 E9/L Low 2.0 - 7.5 E9/L Rem[facility] Heme Neutrophils/100 WBC (Bld) 46.8 % Normal 36.0 - 75.0 % [facility] Platelet mean volume (Bld) [Entitic vol] 7.7 fL Normal 6.4 - 10.8 fL [facility] Heme Platelets (Bld) [#/Vol] 240.0 E9/L Normal 150. 0 - 500.0 E9/L Rem[facility] Heme RBC (Bld) [#/Vol] 3.8 E12/L Low 4.3 - 5.9 E12/L Rem[facility] Heme WBC corrected for nucl RBC Auto (Bld) [#/Vol] 3.4 E9/L Low 4.0 - 11.0 E9/L Remisol Heme Magnesiumon 05-19-2023 Magnesium [Mass/Vol] 2.1 mg/dL Normal 1.3-2.4 [facility] Comment on above: Performed By: #### 1 [id number] #### [facility] [address] [place] [address] PT & PTTon 05-19-2023 aPTT Coag (PPP) [Time] 33.6 second(s) Normal 25.1-36.5 [facility] Comment on above: Result Comment: Para meter 15 days - 4 weeks 1 - 5 months 6 - 11 months 1 - 5 years 6 - 10 years 11 - 17 years PTT Mean: 35.4 (27.6-45.6) Mean: 33.5 (24.8-40.7) Mean: 32.4 (25.1-40.7) Mean: 31.6 (24.0-39.2) Mean: 31.6 (26.9-38.7) Mean: 31.0 (24.6-38.4) Pediatric Reference ranges were obtained from a study by negin Benoit. prepared from 1437 samples obtained at 7 different centers using the same coagulation reagent and instrumentation as [facility]. Currently there are no coagulation studies available worldwide for children to 14 days, and no normal ranges. Heparin therapeutic range (represented by Anti-Factor Xa activity of 0.2 - 0.4 U/mL) corresponds to PTT of 56.6 - 109.0 sec. Performed By: #### 2 [id number], [id number] #### [facility] [address] [place] [address] INR Coag (PPP) [Relative time] 0.98 {INR} Invalid Interpretation Code [facility] Comment on above: Result Comment: INR results are specifically intended to assess patients stabilized on long-term Anticoagulation therapy suggested INR?s ?Less Intensive Anticoagulation? 2.0 ? 3.0 Conventional Range 3.0 ? 4.5 Performed By: #### 2 [id number], [id number] #### [facility] [address] [place] [address] PT Coag (PPP) [Time] 11.0 second(s) Normal 9.4-12.5 [facility] Comment on above: Result Comment: 15 d ays - 4 weeks 1 - 5 months 6 -11 months 1-5 years 6-10 years 11 -17 years Mean: 11.2 (9.5-12.6) Mean: 11.0 (9.7-12.8) Mean: 11.0 (9.8-13.0) Mean: 11.3 (9.9-13.4) Mean: 11.7 (10.0-14.6) Mean: 11.8 (10.0 - 14.1) Pediatric Reference ranges were obtained from a study by negin Benoit. prepared from 1437 samples obtained at 7 different centers using the same coagulation reagent and instrumentation as [facility]. Currently there are no coagulation studies available worldwide for children to 14 days, and no normal ranges. Performed By: #### 2 [id number], [id number] #### [facility] [address] [place] [address] Phosphoruson 05-19-2023 Phosphate [Mass/Vol] 3.7 mg/dL Normal 1.9-4.6 [facility] Comment on above: Performed By: #### 1 [id number], [id number] #### [facility] [address] [place] [address] eGFRon 05-19-2023 eGFR 100 mL/min/1.73 m2 Normal >=59 [facility] Comment on above: Order Comment: Order added by Discern Expert. Performed By: #### 1 [id number] #### [facility] [address] [place] [address] US THYROIDon 12-22-2022 US THYROID FINDINGS: Right [...] SCREEN 3D KELLEY CAD Patient: JUAN ANTONIO BACA Exam Date: 12/24/2021 : 1960 Gender:F Ordering : DR TIMOTHY DOMINGUEZ M.D. Admission #: [id number] Family : Order #: [id number] CLICK HERE TO VIEW EXAM RADIOLOGY REPORT [...] No Treatments None Family Cancers None LOCATION: [facility] BREAST COMPOSITION: Extremely dense, which [...] Addison MD on 12/24/2021 at 10:32 Normal [facility] Vital Signs Date Time Vital Sign Value Performing Clinician Facility 07-15-2023 14:40-0400 Diastolic blood pressure 75 mm[Hg] MD Timothy Dominguez Work Phone: [facility] 07-15-2023 14:40-0400 Heart rate 88 /min MD Timothy Dominguez Work Phone: [facility] 07-15-2023 14:40-0400 Respiratory rate 16 /min MD Timothy Dominguez Work Phone: [facility] 07-15-2023 14:40-0400 SaO2% (BldA) [Mass fraction] 100 % MD Timothy Dominguez Work Phone: [facility] 07-15-2023 14:40-0400 Systolic blood pressure 146 mm[Hg] MD Timothy Dominguez Work Phone: [facility] 07-15-2023 14:31-0400 Body temperature 98 [degF] MD Timothy Dominguez Work Phone: [facility] 07-15-2023 14:06-0400 Inhaled oxygen flow rate 8 L/min MD Timothy Dominguez Work Phone: [facility] 07-15-2023 13:21-0400 Body height 170.18 cm MD Timothy Dominguez Work Phone: [facility] 07-15-2023 13:21-0400 Body weight 61.23 kg MD Timothy Dominguez Work Phone: [facility] 07-15-2023 11:04-0400 Diastolic blood pressure 79 mm[Hg] MD Timothy Dominguez Work Phone: [facility] 07-15-2023 11:04-0400 Heart rate 85 /min MD Timothy Dominguez Work Phone: [facility] 07-15-2023 11:04-0400 Respiratory rate 14 /min MD Timothy Dominguez Work Phone: [facility] 07-15-2023 11:04-0400 SaO2% (BldA) [Mass fraction] 100 % MD Timothy Dominguez Work Phone: [facility] 07-15-2023 11:04-0400 Systolic blood pressure 146 mm[Hg] MD Timothy Dominguez Work Phone: [facility] 07-15-2023 10:17-0400 Body temperature 97 [degF] MD Timothy Dominguez Work Phone: [facility] 07-15-2023 09:52-0400 Inhaled oxygen flow rate 8 L/min MD Timothy Dominguez Work Phone: [facility] 07-15-2023 07:58-0400 Body height 170.18 cm MD Timothy Dominguez Work Phone: [facility] 07-15-2023 07:58-0400 Body mass index (BMI) [Ratio] 22.8 kg/m2 MD Timothy Dominguez Work Phone: [facility] 07-15-2023 07:58-0400 Body weight 66 kg MD Timothy Dominguez Work Phone: [facility] 05-19-2023 07:38-0400 Blood Pressure Location Cecy Timmis [facility] 05-19-2023 07:38-0400 Diastolic blood pressure 75 mm[Hg] Cecy Timmis [facility] 05-19-2023 07:38-0400 Heart rate 54 /min Cecy Timmis [facility] 05-19-2023 07:38-0400 Mean blood pressure 101 mm[Hg] Cecy Timmis [facility] 05-19-2023 07:38-0400 Systolic blood pressure 151 mm[Hg] Cecy Timmis [facility] 05-19-2023 07:37-0400 Heart rate 56 /min Cecy Timmis [facility] 05-19-2023 07:37-0400 SaO2% (BldA) [Mass fraction] 100 % Cecy Timmis [facility] 05-19-2023 07:37-0400 Respiratory rate 16 /min Cecy Timmis [facility] 05-19-2023 07:37-0400 Body temperature 98.24 [degF] Cecy Timmis [facility] 05-19-2023 07:37-0400 Blood Pressure Location Cecy Lockhart [facility] 05-19-2023 07:37-0400 Diastolic blood pressure 73 mm[Hg] Cecy Mercers [facility] 05-19-2023 07:37-0400 Mean blood pressure 99 mm[Hg] Cecy Mercers [facility] 05-19-2023 07:37-0400 Systolic blood pressure 151 mm[Hg] Cecyjose Mercers [facility] Encounters Encounter Date Encounter Type Care Provider Facility Start: 10-26-2023 End: 10-26-2023 ambulatory TIMOTHY DOMINGUEZ Not Available Start: 08-24-2023 End: 08-24-2023 ambulatory MITCHELL NELSON Not Available Start: 08-16-2023 End: 08-16-2023 Patient encounter procedure MD Timothy Dominguez Work Phone: [facility] [place] Work Phone: Start: 08-16-2023 End: 08-16-2023 ambulatory MD Timothy Dominguez Work Phone: [facility] Work Phone: Start: 07-21-2023 End: 07-21-2023 ambulatory MITCHELL W MURCEK Not Available Start: 07-16-2023 End: 07-16-2023 ambulatory MITCHELL W MURCEK Not Available Start: 07-15-2023 End: 07-15-2023 Admission to same day surgery center MD Timothy Dominguez Work Phone: [facility] [place] Start: 07-15-2023 End: 07-15-2023 ambulatory MD Timothy Dominguez Work Phone: [facility] Work Phone: Start: 07-01-2023 End: 07-01-2023 Patient encounter procedure MD Timothy Dominguez Work Phone: [facility] Work Phone: Start: 07-01-2023 End: 07-01-2023 ambulatory MD Timothy Dominguez Work Phone: [facility] Work Phone: Start: 07-01-2023 Encounter for preprocedural laboratory examination Mitchell Nelson [facility] Start: 06-28-2023 End: 06-28-2023 ambulatory MITCHELL Aguilar DALIA Not Available Start: 05-19-2023 End: 05-20-2023 ambulatory Cecy H Timmis Facility:[facility] Start: 05-19-2023 End: 05-19-2023 Patient encounter procedure Cecy H Timmis [facility] Start: 05-10-2023 End: 05-10-2023 ambulatory TIMOTHY DOMINGUEZ Not Available Start: 04-19-2023 End: 06-11-2023 Pre-admission assessment Cecy H Timmis [facility] Start: 04-19-2023 End: 04-19-2023 ambulatory CECY H TIMMIS Not Available Start: 02-17-2023 End: 02-17-2023 ambulatory CECY H TIMMIS Not Available Start: 01-04-2023 End: 01-04-2023 ambulatory CECY H TIMMIS Not Available Start: 12-22-2022 End: 12-22-2022 ambulatory CECY H TIMMIS Not Available Start: 12-24-2021 End: 12-25-[address] TIMOTHY DOMINGUEZ Facility: Procedures Date Procedure Procedure Detail Performing Clinician Start: 07-15-2023 End: 07-15-2023 Lobectomy of thyroid gland MD Timothy Dominguez Work Phone: Ligation of fallopia n tube Cecy Timmis Removal of ovarian cyst Courtney ry Timmis Plan of Treatment Date Care Activity Detail Author Start: 07-15-2023 End: 07-15-2023 [facility] Start: 07-15-2023 [facility] Start: 07-15-2023 [facility] Patient Education Know your Meds [facility] Work Phone: Patient referral [facility] Work Phone: Immunizations Immunization Date Immunization Notes Care Provider Fa cility 06-17-2020 COVID-19 Bernice Ramos (Pfizer) MD Timothy Dominguez Work Phone: [facility] 05-27-2020 COVID-19 Bernice Ramos (Pfizer) MD Timothy Dominguez Work Phone: [facility] Payers Date Payer Category Payer Self-pay 1961 Unknown [id number] 1960 Unknown [id number] 2.16.84 [id number] 1960 Unknown [id number] 2.16.8 [id number] 1960 Unknown [id number] 2.16.84 0.1.607044.3.579.2.1258 1960 Unknown [id number] 2.16.84 0.1.528349.3.579.2.1258 1960 Unknown [id number] 2.16.84 0.1.769343.3.579.2.125 1960 Unknown [id number] 2.16.84 0.1.648858.3.579.2.1258 1960 Unknown [id number] 2.16.84 0.1.103638.3.579.2.9 1960 Unknown [id number] 2.16.84 0.1.440310.3.579.2.1258 1960 Unknown [id number] 2.16.84 0.1.996937.3.579.2.1259 1960 Unknown [id number] 2.16.840 .1.195746.3.579.2.1259 1960 Unknown [id number] 2.16.840 .1.328703.3.579.2.1259 1960 Unknown [id number] 2.16.840.1 .736416.3.579.2.1259 Unknown [id number] 2.16.8 40.1.821911.3.579.2.531 Unknown [id number] 2.16.8 40.1.982226.3.579.2.531 Unknown [id number] 2.16.8 40.1.039299.3.579.2.531 Unknown [id number] 2.16.8 40.1.076299.3.579.2.531 Social History Date Type Detail Facility Tobacco smoking status [facility] Sex Assigned At Female [facility] Start: 07-01-2023 End: 07-15-2023 Tobacco smoking status NHIS Ex-smoker (finding) [facility] Start: 1960 Sex Assigned At Female [facility] Goals Date Patient Goal Desired Activity /State Functional Status Date Assessment Result Facility 05-19-[address] [facility] History and physical note 05-27-2023 Note Date & Type Note Facility 05-27-2023 Note [id number] 2#1.00TIFF [facility] Evaluation + Plan note Note Date & Type Note Facility Evaluation + Plan note Future Appointments Appointment Date:06/10/2023 08:00:00 AM Scheduled Provider: Location:[facility] Appointment Type:Surgery FT [facility] Evaluation note Note Date & Type Note Facility Evaluation note No assessment information availa [facility] Work Phone: Hospital course Narrative Note Date & Type Note Facility Hospital course Narrative No data available for this section [facility] Hospital Discharge instructions Note Date & Type Note Facility Hospital Discharge instructions No data available for this section [facility] Hospital Discharge instructions Note Date & Type Note Facility Hospital Discharge instructions Additional Instructions DISCHARGE INSTRUCTIONS FOR THYROIDECTOMY ACTIVITY -No lifting or straining. -[No strenuous activity for 2 weeks.] -[Sleep with head elevated on two pillows.] -May shower [today or tomorrow?] -[You may shower and wash the incision with soap and water, but do not submerge the incision or allow prolonged exposure to water. Pat dry.] -[No driving for at least 5 days, or while taking prescription pain medicine.] WOUND CARE/DRESSING -Be sure to keep your incision clean and dry. -[There is a clear, glue-like adhesive on your incision. Do not peel or pick at this adhesive. It wall fall off on its own after a few days.] -[Call the office if incision area appears to have any sign of infection, such as increased swelling, redness, or purulent drainage.] -[Watch for bleeding, swelling, difficulty breathing, difficulty swallowing.] MEDICATION -If any prescriptions have been given to you, be sure to take as directed. OTHER Any problems- call the office or return to the Emergency Room. If you are having excessive or persistent pain, swelling, fever (oral temp >101), yellow-green foul smelling drainage or bleeding from incision, excessive redness of incision, nausea, vomiting, or any other problems, you should first call your surgeon for advice. If you are unable to contact your surgeon, seek help from a hospital emergency room. FOLLOW UP -Call the office to follow up in one week. [] [facility] Work Phone: Progress note Note Date & Type Note Facility Progress note No data available for this section [facility] Summary Purpose Family History No Family History Records Found Relationship Condition Age at Onset Recorded Date/T cate father Myocardial infarction Unknown Heart valve disease Unknown Not Specified Myocardial infarction Unknown Dementia Unknown sister Long QT syndrome Unknown Relationship Condition Age at Onset Recorded Date/T cate father Myocardial infarction Unknown Heart valve disease Unknown mother Myocardial infarction Unknown Dementia Unknown sister Long QT syndrome Unknown Advance Directives No Advanced Directives Records Found Advance Directive Response Recorded Date/ Time Advance Directives No June 30 4 1:33pm Chief Complaint and Reason for Visit Chief Complaint Thyroid Nodules Chief Complaint Thyroid Nodules Thyroid Nodules Chief Complaint Thyroid Nodules Thyroid Nodules E04.2 Additional Source Comments INFORMATION SOURCE (unrecogn ized section and content) DATE CREATED AUTHOR 12/29/2021 [facility] DATE CREATED AUTHOR AUTHOR'S ORGANIZ ATION 05/28/2023 Santosh Chung [facility] DATE CREATED AUTHOR AUTHOR'S ORGANIZ ATION 08/18/2023 [facility] DATE CREATED AUTHOR AUTHOR'S ORGANIZ ATION 10/28/2023 [facility] EPIC Patient Care team informatio n (unrecognized section and content) Team Status: Active Member Role Status Dates Timothy Dominguez MD Primary Care Provider Active Team Status: Inactive Member Role Status Dates Mitchell Nelson DO Attending Provider Active S tart: July 01, 2023 End: July 01, 2023 Timothy Dominguez MD Primary Care Provider Active S tart: July 01, 2023 End: July 01, 2023 Team Status: Inactive Member Role Status Wilbert Nelson DO Attending Provider Active S tart: July 15, 2023 End: July 15, 2023 Timothy Dominguez MD Primary Care Provider Active S tart: July 15, 2023 End: July 15, 2023 Team Status: Inactive Member Role Status Wilbert Dominguez MD Primary Care Provider Active S tart: August 16, 2023 End: August 16, 2023 Mitchell Nelson DO Attending Provider Active S tart: August 16, 2023 End: August 16, 2023 Goals (unrecognized section and content) Goals may be documented in a n alternate section FOR RECORDS PERTAINING TO PATIENTS WHO ARE [...] BE BASED ON THE PRIMARY CLINICAL RECORDS. [facility] [employer] [facility]. provides no warranty or guarantee of the accuracy or completeness of information in this document.
[2023-12-03 08:41] LABS: Free T4 1.86 ng/dL (0.76-1.46)
== END 2023-12-03 07:04 | disposition home or self-care (01) ==
LOC: LAB 07:04
PROVIDERS: PCP Family Medicine; Visit Provider Internal Medicine
DX: E89.0 Postprocedural hypothyroidism (principal)
CPT/HCPCS: 36415; 84439; 84443; 84481

== ENCOUNTER 2024-01-05 07:00 | Outpatient (OUT) | payer OTHER, SELFPAY ==
--- NOTE | 2024-01-05 07:03 | MM_ITS ---
Patient Name: JUAN ANTONIO KEATING MR#: [id number] : 1960 Exam Date: 01/05/2024 Ordering Doctor: DR MARY ANN DOMINGUEZ M.D. RADIOLOGY REPORT PROCEDURE: MM TOMOSYNTHESIS SCREENING BI COMPARISON: MG MAMM SCREEN 3D KELLEY CAD, 12/24/2021. MM TOMOSYNTHESIS SCREENING BI, 12/29/2022. INDICATIONS: Screening for malignant neoplasm Calculator Name NCI Breast Cancer Risk Assessment Tool 5 Year Breast Cancer Risk 1.20% Lifetime Breast Cancer Risk 4.60% Personal Breast Cancer No Personal Ovarian Cancer No Treatments None Family Cancers None LOCATION: [facility] BREAST COMPOSITION: The breasts are extremely dense, which lowers the sensitivity of mammography. FINDINGS: DIAGNOSTIC CATEGORY 2--BENIGN FINDING. NO CHANGE FROM COMPARISON. Scattered benign-appearing calcifications are present. Scattered benign-appearing nodules are present. RIGHT BREAST: No significant suspicious finding. LEFT BREAST: No significant suspicious finding. RECOMMENDATIONS: ROUTINE MAMMOGRAM AND CLINICAL EVALUATION IN 12 MONTHS. PLEASE NOTE: A NORMAL MAMMOGRAM DOES NOT EXCLUDE THE POSSIBILITY OF BREAST CANCER. A CLINICALLY SUSPICIOUS PALPABLE LUMP SHOULD BE BIOPSIED. Dictated by: Kushal Addison MD on 01/05/2024 at 09:29 Approved by: Kushal Addsion MD on 01/05/2024 at 09:30
--- OUTSIDE RECORDS SUMMARY | 2024-01-05 07:03 | XMS_ITS | CCD ---
Author Organization [facility] Care Team Providers Care 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 Name Role Phone ANGELICA, DR REESE Attending Unavailable ANGELICA, DR REESE Consulting Unavailable ANGELICA, DR REESE Primary Care Unavailable ANGELICA, DR REESE Admitting Unavailable WEST, DR AFLREDO Latham Consulting Unavailable TIMOTHY DOMINGUEZ Primary Care Physician [phone] Ruslans Cecy H Referring Unavailable Timmis, Cecy H Attending Unavailable Timmis, Cecy H Admitting Unavailable Murcek, DO Mitchell Attending Provider MD Timothy Dominguez Primary Care Provider Mitchell eNlson Admitting Unavailable Murcek, Mitchell Attending Unavailable AngelicaTimothy blair Primary Care Unavailable Murcek, Mitchell Attending Unavailable Murcek, Mitchell Admitting Unavailable Angelica, Timothy Holland Primary Care Unavailable Angelica, Timothy M Primary Care Unavailable Murcek, Mitchell Admitting Unavailable Murcek, Mitchell Attending Unavailable Murcek, Mitchell Admitting Unavailable Murcek, Mitchell Attending Unavailable Angelica, Antioneen Skyler Primary Care Unavailable TIMMIS, CECY H Attending Unavailable ANGELICA, RUGEN M Referring Unavailable TIMMIS, CECY H Attending Unavailable TIMMIS, CECY H Attending Unavailable ANGELICA, TIMOTHY Holland Attending Unavailable MURCEK, MITCHELL W Attending Unavailable TIMMIS, CECY H Referring Unavailable MURCEK, MITCHELL W Attending Unavailable MURCEK, MITCHELL W Attending Unavailable MURCEK, MITCHELL W Attending Unavailable TIMMIS, CECY H Referring Unavailable ANGELICA, TIMOTHY Holland Attending Unavailable Orient Timothy MAC Primary Care Provider Cecy Lockhart MD Unavailable Mitchell Nelson DO Unavailable Victor Hugo MACEric Unavailable Medications Current Medications Medication Drug Class(es) Dates Sig (Normalized) Sig (Original) ascorbic acid 60 mg / beta carotene 5000 unt / copper sulfate 40 mg / dl-alpha tocopheryl acetate 30 unt / sodium selenite 0.04 mg / zinc oxide 40 mg oral tablet (4 sources) Vitamin C Multiple Vitamin (Multivitamin Adult) tablet Orally Active atorvastatin 20 mg oral tablet (9 sources) HMG-CoA Reductase Inhibitor Start: 10-26-2023 take 1 tablet by mouth once daily atorvastatin (Lipitor) 20 MG tablet Indications: Hypercholesteremia (CMS/HCC) Take 1 tablet (20 mg) by mouth Daily 100 tablet 3 10/26/2023 Active Start: 07-01-2023 take 20 mg by mouth once daily in the morning Atorvastatin Active 20 MG PO Every morning July 01, 2023 12:00am Start: 05-19-2023 take 1 tablet by rob once daily atorvastatin 20 mg Tab 20 mg = 1 tab(s), Oral, Daily, Refills(s) 0, High cholesterol Start Date: 05/19/23 Status: Ordered Calcium (2 sources) Phosphate Binder, Calcium Start: 05-19-2023 calcium (as carbonate) 500 mg oral tablet Refills(s) 0 Start Date: 05/19/23 Status: Ordered Calcium Carbonate (4 sources) Calcium Carbonat e (CALCI-CHEW PO) Active chondroitin sulfates 400 mg / glucosamine sulfate 500 mg oral tablet (4 sources) take 1 tablet by mouth once daily glucosamine-chond roitin 500-400 MG tablet Take 1 tablet by mouth Daily Active Fish Oils (6 sources) Start: 05-19-2023 Fish Oil Refill(s) 0 Start Date: 05/19/23 Status: Ordered take [address] [facility] every twelve hours omega-3 (Fish Oil) 500 MG capsule 1 capsule every 12 (twelve) hours. Active levothyroxine sodium 0.112 mg oral tablet (6 sources) l-Thyroxine Start: 12-09-2023 End: 03-08-2024 take 1 tablet by mouth once daily levothyroxine (Synthroid, Levoxyl) 112 MCG tablet Indications: Postoperative hypothyroidism (CMS/HCC) Take 1 tablet (112 mcg) by mouth Daily 90 tablet 1 12/09/2023 03/08/2024 Active Start: 08-05-2023 End: 12-09-2023 levothyroxine (Synthroid, Le voxyl) 125 MCG tablet Take 112 mcg by mouth in the morning. Take before meals. 08/05/2023 12/09/2023 Discontinued (Dose adjustment) Start: 08-05-2023 take 1 tablet by rob th before mealtime levothyroxine (Synthroid, Levoxyl) 125 MCG tablet Take 125 mcg by mouth in the morning. Take before meals. 08/05/2023 Active Magnesium (4 sources) magnesium 250 MG tablet 1 (one) time each day at the same time. Active Magnesium Oxide (2 sources) Start: 05-19-2023 magnesium oxide Refills(s) 0 Start Date: 05/19/23 Status: Ordered 24 hr metoprolol succinate 25 mg extended release oral tablet (9 sources) beta-Adrenergic Home Start: 10-01-2023 take 1 tablet by mouth once daily metoprolol succinate XL (Toprol-XL) 25 MG 24 hr tablet Take 25 mg by mouth Daily 10/01/2023 Active Start: 07-01-2023 take 25 mg by mouth [...] Ordered olmesartan medoxomil 20 mg oral tablet (9 sources) Angiotensin 2 Receptor Home Start: 01-25-2023 take 1 tablet by mouth once daily in the morning olmesartan (BENIcar) 20 MG tablet Indications: Elevated BP without diagnosis of hypertension TAKE 1 TABLET BY MOUTH EVERY DAY IN THE MORNING 100 tablet 3 01/25/2023 Active Completed/Discontinued Medications Medication Drug Class(es) Dates Sig (Normalized) Sig (Original) methIMAzole 10 mg oral tablet (5 sources) Thyroid Hormone Synthesis Inhibitor Start: 07-01-2023 End: 07-15-2023 take 10 mg by mouth five times weekly Methimazole Discontinued 10 MG PO 5 TIMES PER WEEK July 01, 2023 12:00am July 15, 2023 9:38am Start: 05-19-2023 methimazole 10 mg Tab See Instructions, 1 tab(s) Oral, Refills(s) 0, Thyroid Start Date: 05/19/23 Status: Ordered Problems Active Problems Problem Classification Problem Date Documented Date Episodic/Chronic Complications of surgical procedures or medical care (2 sources) Postoperative hypothyroidism; Translations: [Postprocedural hypothyroidism] 12-09-2023 Chronic Diseases of white blood cells (4 sources) Leukopenia; Translations: [Decreased white blood cell count, unspecified] Onset: 07-17-2022 07-17-2022 Chronic Disorders of lipid metabolism (10 sources) Hyperlipidemia; Translations: [Hypercholesterolemi a] Onset: 07-17-2022 05-19-2023 Chronic Essential hypertension (10 sources) Hypertensive disorder; Translations: [Benign essential hypertension] Onset: 11-03-2022 05-19-2023 Chronic Menopausal disorders (8 sources) Decreased estrogen level; Translations: [Other primary ovarian failure] Onset: 07-17-2022 07-17-2022 Chronic Nutritional deficiencies (2 sources) Vitamin D deficiency; Translations: [Vitamin D deficiency, unspecified] 12-09-2023 Chronic Other endocrine disorders (4 sources) Hypoglycemia; Translations: [Hypoglycemia, unspecified] Onset: 10-26-2023 10-26-2023 Chronic Other nutritional; endocrine; and metabolic disorders (4 sources) Gilbert's syndrome; 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] Onset: 07-17-2022 07-17-2022 Chronic Other screening for suspected conditions (not mental disorders or infectious disease) (4 sources) Encounter for screening mammogram for malignant neoplasm of breast; Translations: [ENC SCR MAMMO MALIG NEOPLASM BREAST] Onset: 12-24-2021 Episodic Thyroid disorders (19 sources) Hyperthyroidism; Translations: [Nontoxic multinodular goiter] Onset: 09-29-2022 05-19-2023 Chronic Past or Other Problems Problem Classification Problem Date Documented Da te Episodic/Chronic Diabetes mellitus without complication (4 sources) Abnormal glucose tolerance test; Translations: [Other abnormal glucose] Onset: 11-03-2022 11-03-2022 Episodic Other bone disease and musculoskeletal deformities (4 sources) Osteopenia; Translations: [Other specified disorders of bone density and structure, other site] Onset: 07-17-2022 07-17-2022 Episodic Other circulatory disease (4 sources) Elevated blood-pressure reading without diagnosis of hypertension; Translations: [Elevated blood-pressure reading, without diagnosis of hypertension] Onset: 09-14-2022 09-14-2022 Episodic Other circulatory disease (4 sources) Carotid bruit; Translations: [Other specified symptoms and signs involving the circulatory and respiratory systems] Onset: 09-14-2022 09-14-2022 Episodic Other nutritional; endocrine; and metabolic disorders (4 sources) Unintentional weight loss; Translations: [Abnormal weight loss] Onset: 09-29-2022 09-29-2022 Episodic Other upper respiratory disease (4 sources) Hoarse; Translations: [Dysphonia] Onset: 09-29-2022 09-29-2022 Episodic Ovarian cyst (6 sources) Cyst of ovary; Translations: [Unspecified ovarian cyst, unspecified side] Onset: 07-17-2022 05-19-2023 Episodic Results Test Name Value Interpretation Reference Range Facility ALL T3 FREEon 12-03-2023 Free T3 [Mass/Vol] 3.2 pg/mL 2.18 - 3. 98 pg/mL [facility] ALL THYROID STIM HORMONEon 1 TSH Qn 0.06 m[IU]/L Low [facility] ALL THYROXINE (T4) FREEon Free T4 [Mass/Vol] 1.86 ng/dL High 0.76 - 1. 46 ng/dL [facility] No Panel Informationon 12-02 Interpretation and review of laboratory results Abnormal [facility] Thyrotropin [Units/volume] i n Serum or PlasmaOrdered By: Mitchell Nelson on 08-16-2023 TSH Qn 1.34 m[IU]/L Normal 0.45-5.33 [facility] Comment on above: Result Comment: PERF ORMED BY: [place] [address] PATHOLOGIST [employer] AIDE LINDA QUINN M.D. Performed By: #### T 3T, TSH3, T4T #### [facility] [address] Thyroxine (T4) [Mass/volume] in Serum or PlasmaOrdered By: Mitchell Nelson on 08-16-2023 T4 [Mass/Vol] 12.56 ug/dL High 5.39-11.82 [facility] Comment on above: Performed By: #### T 3T, TSH3, T4T #### [facility] [address] [place] [address] Triiodothyronine (T3) Totalo n 08-16-2023 Triiodothyronine (T3) Total 1.11 ng/mL Normal 0.87-1.78 [facility] Comment on above: Performed By: #### T 3T, TSH3, T4T #### [address] Triiodothyronine (T3) [Mass/ volume] in Serum or PlasmaOrdered By: Mitchell Nelson on 08-16-2023 T3 [Mass/Vol] 1.11 ng/mL 0.87-1.78 [facility] Calcium [Mass/volume] in Ser um or PlasmaOrdered By: Mitchell Nelson on 07-15-2023 Calcium [Mass/Vol] 9.2 mg/dL Normal 8.6-10.3 [facility] Comment on above: Order Comment: Comme nt Call to Dr. Nelson Result Comment: PERF ORMED BY: [place] [address] PATHOLOGIST [employer] AIDE LINDA QUINN M.D. Performed By: #### P TH, CA #### [address] Luis Angel 07-15-2023 L Specimen: [id number] Received: 07/15/23 Status: SOUT Req Num: [id number] Spec Type: Surgical Subm Dr: Mitchell Nelson DO Tissues: A THYROID - Lobe (LT LOBE/ISTHMUS) B THYROID - Lobe (RT LOBE) Procedures: HE/10, Gross/Micro L5/2 Age/ Patient Sex Location Account Attending Physician Key Baca 62/F [place] [id number] Mitchell Nelson DO SPEC NUM: [id number] RECD: 07/15/23 STATUS: ANDRY REQ NUM: [id number] ESTRADA: 07/15/23 [facility] DR: Mitchell Nelson DO ENTERED: 07/15/23 [facility] DR: SPEC TYPE: Surgical DEPT: S ORDERED: [...] multinodular blackburn to dark brown cut surface. [employer] Supervisor sections and 5 cassettes. B. Specimen is labeled right lobe. Specimen consists of a thyroid lobe 4.2 x 2.7 x 2 cm. All outer surfaces are inked blue. Reveals a multinodular cut surface. Submitted all in 5 cassettes. Specimen: [id number] Received: 07/15/23 Status: ANDRY Req Num: [id number] Spec Type: Surgical Subm Dr: Mitchell Nelson DO Tissues: A THYROID - Lobe (LT LOBE/ISTHMUS) B THYROID - Lobe (RT LOBE) Procedures: HE/10, Gross/Micro L5/2 Patient: Key Baca [id number] (Continued) Specimen: [id number] Received: 07/15/23 (Continued) Signed (signature on file) Conner Kim MD 07/16/23 1804 Specimen: [id number] Received: 07/15/23 Status: ANDRY Bojorquez Num: [id number] Spec Type: Surgical Subm Dr: Mitchell Nelson DO Tissues: A THYROID - Lobe (LT LOBE/ISTHMUS) B THYROID - Lobe (RT LOBE) Procedures: Miquel Mccormick/Vickie L5/2 Patient: Key Baca [id number] (Continued) Specimen: [id number] Received: 07/15/23 (Continued) CPT Codes 38038y6 Specimen: [id number] Received: 07/15/23 Status: ANDRY Bojorquez Num: [id number] Spec Type: Surgical Subm Dr: Mitchell Nelson DO Tissues: A THYROID - Lobe (LT LOBE/ISTHMUS) B THYROID - Lobe (RT LOBE) Procedures: Miquel BAIG/Vickie L5/2 Patient: Key Baca [id number] (Continued) Signed (signature on file) Conner Kim MD 07/16/23 180 Normal [facility] Parathyrin.intact [Mass/volu me] in Serum or PlasmaOrdered By: Mitchell Nelson on 07-15-2023 Parathyrin.intact [Mass/Vol] 21.4 pg/mL [facility] Parathyroid Hormone Intacton 07-15-2023 Parathyroid Hormone Intact 21.4 pg/mL Normal [facility] Comment on above: Order Comment: Comme nt Call to Dr. Nelson Result Comment: PERF ORMED BY: [place] [address] PATHOLOGIST [employer] A[employer] LINDA QUINN M.D. Performed By: #### P TH, CA #### [address] Automated basophil %Ordered By: Mitchell Nelson on 07-01-2023 Basophils/100 WBC (Bld) 0.7 % Normal . [facility] Comment on above: Performed By: #### C BC #### [address] Automated basophil countOrde red By: Mitchell Nelson on 07-01-2023 Basophils (Bld) [#/Vol] 0.0 10*3/uL Normal 0.0-0.2 [facility] Comment on above: Result Comment: PERF ORMED BY: [place] [address] PATHOLOGIST [employer] A[employer] LINDA QUINN M.D. Performed By: #### C BC #### [address] Automated blood monocyte cou ntOrdered By: Mitchell Nelson on 07-01-2023 Monocytes (Bld) [#/Vol] 0.4 10*3/uL Normal 0.0-0.8 [facility] Comment on above: Performed By: #### C BC #### [address] Automated eosinophil %Ordere d By: Mitchell Nelson on 07-01-2023 Eosinophils/100 WBC (Bld) 2.8 % Normal . [facility] Comment on above: Performed By: #### C BC #### [address] Automated eosinophil countOr dered By: Mitchell Nelson on 07-01-2023 Eosinophils (Bld) [#/Vol] 0.1 10*3/uL Normal 0.0-0.45 [facility] Comment on above: Performed By: #### C BC #### [address] Automated monocyte %Ordered By: Mitchell Nelson on 07-01-2023 Monocytes/100 WBC (Bld) 10.2 % Normal . [facility] Comment on above: Performed By: #### C BC #### [address] Automated neutrophil %Ordere d By: Mitchell Nelson on 07-01-2023 Neutrophils/100 WBC (Bld) 33.9 % Normal . [facility] Comment on above: Performed By: #### C BC #### [address] Basic Metabolic Panelon 06-15 GFR/1.73 sq M.predicted MDRD (S/P/Bld) [Vol rate/Area] mL/min/{1.73_m2} Normal [facility] Comment on above: Performed By: #### B MP, TSH3 #### [address] Calcium [Mass/volume] in Ser um or PlasmaOrdered By: Mitchell Nelson on 07-01-2023 Calcium [Mass/Vol] 9.1 mg/dL Normal 8.6-10.3 [facility] Comment on above: Performed By: #### B TADEO TSH3 #### [address] Carbon dioxide, total [Moles /volume] in Serum or PlasmaOrdered By: Mitchell Nelson on 07-01-2023 CO2 [Moles/Vol] 28.2 mmol/L Normal 21.0-31.0 [facility] Comment on above: Performed By: #### B TADEO TSH3 #### [address] Chloride [Moles/volume] in S berto or PlasmaOrdered By: Mitchell Nelson on 07-01-2023 Chloride [Moles/Vol] 101 mmol/L Normal 98-107 [facility] Comment on above: Performed By: #### B TADEO TSH3 #### [address] Complete Blood Count Auto Di ffon 07-01-2023 Mean Corpuscular HGB Conc 34.4 g/dL Normal 32.0-35.0 [facility] Comment on above: Performed By: #### C BC #### [address] NRBC% 0.1 /100{WBC} Normal 0-0.5 [facility] Comment on above: Performed By: #### C BC #### [address] Creatinine [Mass/volume] in Serum or PlasmaOrdered By: Mitchell Nelson on 07-01-2023 Creatinine [Mass/Vol] 0.78 mg/dL Normal 0.60-1.20 [facility] Comment on above: Performed By: #### B TADEO TSH3 #### [address] Erythrocyte distribution wid th [Ratio] by Automated countOrdered By: Mitchell Nelson on 07-01-2023 Erythrocyte distribution width (RBC) [Ratio] 12.6 % Normal 11.9-15.3 [facility] Comment on above: Performed By: #### C BC #### [facility] [address] Erythrocytes [#/volume] in B lood by Automated countOrdered By: Mitchell Nelson on 07-01-2023 RBC (Bld) [#/Vol] 3.63 10*6/uL Normal 3.60-5.00 [facility] Comment on above: Performed By: #### C BC #### [facility] [address] Glucose [Mass/volume] in Ser um or PlasmaOrdered By: Mitchell Nelson on 07-01-2023 Glucose [Mass/Vol] 99 mg/dL Normal 70-100 [facility] Comment on above: ADA recommended refe rence rangeRandom Glucose Reference Range is dependent on time and content of last meal. Glucose of more than 200 mg/dL in a nonstressed, ambulatory subject supports the diagnosis of Diabetes Mellitus. Result Comment: [place] om Glucose Reference Range is dependent on time and content of last meal. Glucose of more than 200 mg/dL in a nonstressed, ambulatory subject supports the diagnosis of Diabetes Mellitus. ADA recommended reference range Performed By: #### B MP, TSH3 #### [address] Hematocrit [Volume Fraction] of Blood by Automated countOrdered By: Mitchell Nelson on 07-01-2023 Hematocrit (Bld) [Volume fraction] 33.4 % Low 34.0-46.4 [facility] Comment on above: Performed By: #### C BC #### [facility] [address] [place] [address] [place] Hemoglobin [Mass/volume] in BloodOrdered By: Mitchell Nelson on 07-01-2023 Hemoglobin (Bld) [Mass/Vol] 11.5 g/dL Low 11.8-15.4 [facility] Comment on above: Performed By: #### C BC #### [place] [address] [place] Leukocytes [#/volume] correc rj for nucleated erythrocytes in Blood by Automated counOrdered By: Mitchell Nelson on 07-01-2023 WBC corrected for nucl RBC Auto (Bld) [#/Vol] 3.7 10*3/uL Low 3.8-11.6 [facility] Leukocytes [#/volume] in Blo od by Automated countOrdered By: Mitchell Nelson on 07-01-2023 WBC (Bld) [#/Vol] 3.7 10*3/uL Low 3.8-11.6 [facility] Comment on above: Performed By: #### C BC #### [address] Lymphocytes [#/volume] in Bl ood by Automated countOrdered By: Mitchell Nelson on 07-01-2023 Lymphocytes (Bld) [#/Vol] 1.9 10*3/uL Normal 1.00-4.8 [facility] Comment on above: Performed By: #### C BC #### [place] [address] [place] Lymphocytes/100 leukocytes i n Blood by Automated countOrdered By: Mitchell Nelson on 07-01-2023 Lymphocytes/100 WBC (Bld) 52.4 % Normal . [facility] Comment on above: Performed By: #### C BC #### [address] MCH [Entitic mass] by Automa rj countOrdered By: Mitchell Nelson on 07-01-2023 MCH (RBC) [Entitic mass] 31.7 pg Normal 24.7-34.3 [facility] Comment on above: Performed By: #### C BC #### [address] MCHC Auto (RBC) [Mass/Vol]Or dered By: Mitchell Nelson on 07-01-2023 MCHC (RBC) [Mass/Vol] 34.4 g/dL 32.0-35.0 [facility] MCV [Entitic volume] by Auto mated countOrdered By: Mitchell Nelson on 07-01-2023 MCV (RBC) [Entitic vol] 92.0 fL Normal 80-100 [facility] Comment on above: Performed By: #### C BC #### [address] Neutrophils [#/volume] in Bl ood by Automated countOrdered By: Mitchell Nelson on 07-01-2023 Neutrophils (Bld) [#/Vol] 1.2 10*3/uL Low 1.8-7.7 [facility] Comment on above: Performed By: #### C BC #### [address] No Panel InformationOrdered By: Mitchell Nelson on 07-01-2023 Estimated GFR (CKD-EPI) > 60.0 mL/Min [facility] Creatinine Clearance (Chem N/A [facility] Nucleated erythrocytes [Pres ence] in Blood by Automated countOrdered By: Mitchell Nelson on 07-01-2023 Nucleated RBC Auto Ql (Bld) 0.1 /100{WBC} 0-0.5 [facility] Parathyrin.intact [Mass/volu me] in Serum or PlasmaOrdered By: Mitchell Nelson on 07-01-2023 Parathyrin.intact [Mass/Vol] 50.9 pg/mL [facility] Parathyroid Hormone Intacton 07-01-2023 Parathyroid Hormone Intact 50.9 pg/mL Normal [facility] Comment on above: Result Comment: PERF ORMED BY: [place] [address] PATHOLOGIST [employer] LINDA QUINN M.D. Performed By: #### P TH #### [address] Platelet mean volume [Entiti c volume] in Blood by Automated countOrdered By: Mitchell Nelson on 07-01-2023 Platelet mean volume (Bld) [Entitic vol] 7.3 fL Normal 6.3-10.7 [facility] Comment on above: Performed By: #### C BC #### [address] Platelets [#/volume] in Bloo d by Automated countOrdered By: Mitchell Nelson on 07-01-2023 Platelets (Bld) [#/Vol] 234 10*3/uL Normal 150-450 [facility] Comment on above: Performed By: #### C BC #### [place] [address] [place] Potassium [Moles/volume] in Serum or PlasmaOrdered By: Mitchell Nelson on 07-01-2023 Potassium [Moles/Vol] 4.2 mmol/L Normal 3.5-5.1 [facility] Comment on above: Performed By: #### B MP, TSH3 #### [address] Serum or plasma anion gap de terminationOrdered By: Mitchell Nelson on 07-01-2023 Anion gap [Moles/Vol] 10.0 mmol/L Normal 6.0-15.0 [facility] Comment on above: Performed By: #### B MP, TSH3 #### [place] [address] [place] Sodium [Moles/volume] in Ser um or PlasmaOrdered By: Mitchell Nelson on 07-01-2023 Sodium [Moles/Vol] 135 mmol/L Low 136-145 [facility] Comment on above: Performed By: #### B MP, TSH3 #### [address] Thyrotropin [Units/volume] i n Serum or PlasmaOrdered By: Mitchell Nelson on 07-01-2023 TSH Qn 5.37 m[IU]/L High 0.45-5.33 [facility] Comment on above: Result Comment: PERF ORMED BY: [place] [address] PATHOLOGIST [employer] A[employer] LINDA QUINN M.D. Performed By: #### B MP, TSH3 #### [place] [address] [place] Urea nitrogen [Mass/volume] in Serum or PlasmaOrdered By: Mitchell Nelson on 07-01-2023 Urea nitrogen [Mass/Vol] 10 mg/dL Normal 7-25 [facility] Comment on above: Performed By: #### B MP, TSH3 #### [facility] [address] [place] [id number] [facility] Cons[facility] for Procedure/Surger yon 05-27-2023 Consent for Procedure/Surgery [id number] 7#1.00TIFF Normal [facility] Outside Recordson 05-27-2023 Outside Records [id number] 8#1.00TIFF Normal [facility] XR Chest 2 Viewson XR Chest 2 Views Exam Date/Time: 05/19/2023 08:20 EDT Reason for Exam: P.A.T. Report IMPRESSION: No acute radiographic abnormality. EXAMINATION: XR Chest 2 Views Clinical History: P.A.T. Comparison: None RESULT: No consolidation. No pleural effusion. No pneumothorax. Normal cardiomediastinal silhouette. No acute osseous findings. Ordering Provider: Doc Bishop FINAL REPORT Dictated: 05/20/2023 4:10 pm Que Ceballos MD. Signed (Electronic Signature): 05/20/2023 4:10 pm Signed by: Que Ceballos MD Transcribed by: JESSENIA Technologist: LITTLE Technical Comments Radiation Dose: Ka,r in mGy = na DAP = na Normal [facility] BMPon 05-19-2023 Anion gap [Moles/Vol] 13 mmol/L Normal 6-16 [facility] Comment on above: Performed By: #### 1 [id number], [id number], [id number], [id number] #### [facility] [address] [place] [address] Calcium [Mass/Vol] 9.9 mg/dL Normal 8.9-11.1 [facility] Comment on above: Performed By: #### 1 [id number], [id number], [id number], [id number] #### [facility] [address] [place] [address] Chloride [Moles/Vol] 102 mmol/L Normal 101-111 [facility] Comment on above: Performed By: #### 1 [id number], [id number], [id number], [id number] #### [facility] [address] [place] [address] CO2 [Moles/Vol] 26 mmol/L Normal 21-31 [facility] Comment on above: Performed By: #### 1 [id number], [id number], [id number], [id number] #### [facility] [address] [place] [address] Creatinine [Mass/Vol] 0.6 mg/dL Normal 0.5-1.3 [facility] Comment on above: Performed By: #### 1 [id number], [id number], [id number], [id number] #### [facility] [address] [place] [address] Glucose [Mass/Vol] 80 mg/dL Normal 55-199 [facility] Comment on above: Performed By: #### 1 [id number], [id number], [id number], [id number] #### [facility] [address] [place] [address] Potassium [Moles/Vol] 3.9 mmol/L Normal 3.5-5.3 [facility] Comment on above: Performed By: #### 1 [id number], [id number], [id number], [id number] #### [facility] [address] [place] [address] Sodium [Moles/Vol] 137 mmol/L Normal 135-145 [facility] Comment on above: Performed By: #### 1 [id number], [id number], [id number], [id number] #### [facility] [address] [place] [address] Urea nitrogen [Mass/Vol] 10 mg/dL Normal 5-21 [facility] Comment on above: Performed By: #### 1 [id number], [id number], 1150104, [id number] #### [facility] [address] [place] [address] Urea nitrogen/Creatinine [Mass ratio] 17 No Units Normal 10-20 [facility] Comment on above: Performed By: #### 1 [id number], [id number], [id number], [id number] #### [facility] [address] [place] [address] CBC w/ Auto Diffon 4 Basophils/100 WBC (Bld) 0.6 % Normal 0.0-2.0 [facility] Comment on above: Performed By: #### 2 [id number], [id number] #### [facility] [address] [place] [address] 42071 Basophils/Leukocytes Auto (Bld) [Pure # fraction] 0.0 E9/L Normal 0.0-0.2 [facility] Comment on above: Performed By: #### 2 [id number], [id number] #### [facility] [address] [place] [address] 45735 Eosinophils (Bld) [#/Vol] 0.1 E9/L Normal 0.0-0.5 [facility] Comment on above: Performed By: #### 2 240289, [id number] #### [facility] [address] [place] [address] 34462 Eosinophils/100 WBC (Bld) 2.6 % Normal 0.0-8.0 [facility] Comment on above: Performed By: #### 2 216981, [id number] #### [facility] [address] [place] [address] 28941 Erythrocyte distribution width (RBC) [Ratio] 12.9 % Normal 10.9-14.2 [facility] Comment on above: Performed By: #### 2 843998, [id number] #### [facility] [address] [place] [address] 27382 Hematocrit (Bld) [Volume fraction] 34.9 % Normal 34.0-46.0 [facility] Comment on above: Performed By: #### 2 054496, [id number] #### [facility] [address] [place] [address] 95129 Hemoglobin (Bld) [Mass/Vol] 11.8 g/dL Low 12.0-16.0 [facility] Comment on above: Performed By: #### 2 595678, [id number] #### [facility] [address] [place] [address] Lymphocytes (Bld) [#/Vol] 1.4 E9/L Normal 1.0-4.0 [facility] Comment on above: Performed By: #### 2 [id number], [id number] #### [facility] [address] [place] [address] 28287 Lymphocytes/100 WBC (Bld) 40.0 % Normal 14.0-50.0 [facility] Comment on above: Performed By: #### 2 999398, [id number] #### [facility] [address] [place] [address] 48005 MCH (RBC) [Entitic mass] 31.5 pg Normal 27.0-34.0 [facility] Comment on above: Performed By: #### 2 308759, [id number] #### [facility] [address] [place] [address] 23348 MCHC (RBC) [Mass/Vol] 33.9 g/dL Normal 31.4-36.0 [facility] Comment on above: Performed By: #### 2 797924, [id number] #### [facility] [address] [place] [address] 31269 MCV (RBC) [Entitic vol] 92.9 fL Normal 80.0-100.0 [facility] Comment on above: Performed By: #### 2 518735, [id number] #### [facility] [address] [place] [address] Monocytes (Bld) [#/Vol] 0.3 E9/L Normal 0.2-1.0 [facility] Comment on above: Performed By: #### 2 983364, [id number] #### [facility] [address] [place] [address] Neutrophils (Bld) [#/Vol] 1.6 E9/L Low 2.0-7.5 [facility] Comment on above: Performed By: #### 2 874864, [id number] #### [facility] [address] [place] [address] Neutrophils/100 WBC (Bld) 46.8 % Normal 36.0-75.0 [facility] Comment on above: Performed By: #### 2 803985, [id number] #### [facility] [address] [place] [address] Platelet mean volume (Bld) [Entitic vol] 7.7 fL Normal 6.4-10.8 [facility] Comment on above: Performed By: #### 2 915414, [id number] #### [facility] [address] [place] [address] Platelets (Bld) [#/Vol] 240.0 E9/L Normal 150.0-500.0 [facility] Comment on above: Performed By: #### 2 282022, [id number] #### [facility] [address] [place] [address] RBC (Bld) [#/Vol] 3.8 E12/L Low 4.3-5.9 [facility] Comment on above: Performed By: #### 2 679364, [id number] #### [facility] [address] [place] [address] WBC corrected for nucl RBC Auto (Bld) [#/Vol] 3.4 E9/L Low 4.0-11.0 [facility] Comment on above: Performed By: #### 2 599048, [id number] #### [facility] [address] [place] [address] CHEMISTRYOrdered By: SYSTEM SYSTEM on 05-19-2023 Anion [...] [Mass/Vol] 10 mg/dL Normal 5 - 21 mg/dL [facility] Urea nitrogen/Creatinine [Mass ratio] 17 mg/mg Normal 10 - 20 [facility] COAGULATIONOrdered By: Lakeisha White on 05-19-2023 aPTT Coag (PPP) [Time] 33.6 s Normal 25.1 - 36.5 second(s) [facility] Auto Coag Comment on above: Interpretive Data: P arameter 15 days - 4 weeks 1 - [...] the same coagulation reagent and instrumentation as [facility]. Currently there are no coagulation studies available worldwide for children to 14 days, and no normal ranges. Heparin therapeutic range (represented by Anti-Factor Xa activity of 0.2 - 0.4 U/mL) corresponds to PTT of 56.6 - 109.0 sec. INR Coag (PPP) [Relative time] 0.98 {INR} Invalid Interpretation Code [facility] Comment on above: Interpretive Data: I NR results are specifically intended to assess patients stabilized on long-term Anticoagulation therapy suggested INR s Less Intensive Anticoagulation 2.0 3.0 Conventional Range 3.0 4.5 PT Coag (PPP) [Time] 11.0 s Normal 9.4 - 1 2.5 second(s) [facility] Auto Coag Comment on above: Interpretive Data: [...] the same coagulation reagent and instrumentation as [facility]. Currently there are no coagulation studies available worldwide for children to 14 days, and no normal ranges. Consent for Treatmenton Consent for Treatment [phone] 40 [id number] #[id number] Normal [facility] HEMATOLOGYOrdered By: SYSTEM SYSTEM on 05-19-2023 Basophils/100 [...] MCH (RBC) [Entitic mass] 31.5 pg Normal 27.0 - 34.0 pg Remisol Heme MCHC (RBC) [...] 05-19-2023 Magnesium [Mass/Vol] 2.1 mg/dL Normal 1.3-2.4 [facility] Comment on above: Performed By: #### 1 [id number], 3884009, 0310977, 1061286 #### [facility] [address] [place] [address] PT & PTTon 05-19-2023 aPTT Coag (PPP) [Time] 33.6 second(s) Normal 25.1-36.5 [facility] Comment on above: Result Comment: Para meter 15 days - 4 weeks 1 - 5 months 6 - 11 months 1 - 5 years 6 - 10 years 11 - 17 years PTT Mean: 35.4 (27.6-45.6) Mean: 33.5 (24.8-40.7) Mean: 32.4 (25.1-40.7) Mean: 31.6 (24.0-39.2) Mean: 31.6 (26.9-38.7) Mean: 31.0 (24.6-38.4) Pediatric Reference ranges were obtained from a study by rudy Benoit al. prepared from 1437 samples obtained at 7 different centers using the same coagulation reagent and instrumentation as [facility]. Currently there are no coagulation studies available worldwide for children to 14 days, and no normal ranges. Heparin therapeutic range (represented by Anti-Factor Xa activity of 0.2 - 0.4 U/mL) corresponds to PTT of 56.6 - 109.0 sec. Performed By: #### 2 [id number], [id number] #### [facility] [address] [place] [address] INR Coag (PPP) [Relative time] 0.98 {INR} Invalid Interpretation Code [facility] Comment on above: Result Comment: INR results are specifically intended to assess patients stabilized on long-term Anticoagulation therapy suggested INR?s ?Less Intensive Anticoagulation? 2.0 ? 3.0 Conventional Range 3.0 ? 4.5 Performed By: #### 2 [id number], [id number] #### [facility] [address] [place] [address] PT Coag (PPP) [Time] 11.0 second(s) Normal 9.4-12.5 [facility] Comment on above: Result Comment: 15 d ays - 4 weeks 1 - 5 months 6 -11 months 1-5 years 6-10 years 11 -17 years Mean: 11.2 (9.5-12.6) Mean: 11.0 (9.7-12.8) Mean: 11.0 (9.8-13.0) Mean: 11.3 (9.9-13.4) Mean: 11.7 (10.0-14.6) Mean: 11.8 (10.0 - 14.1) Pediatric Reference ranges were obtained from a study by rudy Benoit al. prepared from 1437 samples obtained at 7 different centers using the same coagulation reagent and instrumentation as [facility]. Currently there are no coagulation studies available worldwide for children to 14 days, and no normal ranges. Performed By: #### 2 [id number], [id number] #### [facility] [address] [place] [address] Phosphoruson 05-19-2023 Phosphate [Mass/Vol] 3.7 mg/dL Normal 1.9-4.6 [facility] Comment on above: Performed By: #### 1 [id number], 4992927, 0437082, [id number] #### [facility] [address] [place] [address] eGFRon 05-19-2023 eGFR 100 mL/min/1.73 m2 Normal >=59 [facility] Comment on above: Order Comment: Order added by Discern Expert. Performed By: #### 1 [id number], [id number], 7757714, [id number] #### [facility] [address] [place] [address] US THYROIDon 12-22-2022 US THYROID FINDINGS: Right [...] : DR TIMOTHY DOMINGUEZ M.D. Admission #: [id number] Family : Order #: [id number] CLICK HERE TO VIEW EXAM RADIOLOGY REPORT [...] Treatments None Family Cancers None LOCATION: [facility] BREAST COMPOSITION: Extremely dense, which lowers the [...] Addison MD on 12/24/2021 at 10:32 Normal [facility] Vital Signs Date Time Vital Sign Value Performing Clinician Facility 12-09-2023 11:19-0400 Body height 170.2 cm Eric Gay MD Work Phone: [facility] 12-09-2023 11:19-0400 Body mass index (BMI) [Ratio] 22.55 kg/m2 Eric Gay MD Work Phone: [facility] 12-09-2023 11:19-040 Body weight 65.32 kg Eric Gay MD Work Phone: [facility] 12-09-2023 11:19-0400 Heart rate 72 /min Eric Gay MD Work Phone: [facility] Comment on above: O2 SAT 99% 12-09-2023 11:19-0400 Respiratory rate 16 /min Eric Gay MD Work Phone: [facility] 07-15-2023 14:40-0400 Diastolic blood pressure 75 mm[Hg] MD Timothy Dominguez Work Phone: [facility] 07-15-2023 14:40-0400 Heart rate 88 /min MD Timothy Dominguez Work Phone: [facility] 07-15-2023 14:40-0400 Respiratory rate 16 /min MD Timothy Dominguez Work Phone: [facility] 07-15-2023 14:40-0400 SaO2% (BldA) [Mass fraction] 100 % MD Timothy Dominguez Work Phone: [facility] 07-15-2023 14:40-0400 Systolic blood pressure 146 mm[Hg] MD Timothy Dominguez Work Phone: [facility] 07-15-2023 14:31-0400 Body temperature 98 [degF] MD Timothy Dominguez Work Phone: [facility] 07-15-2023 14:06-0400 Inhaled oxygen flow rate 8 L/min MD Timothy Dominguez Work Phone: [facility] 07-15-2023 13:21-0400 Body height 170.18 cm MD Timothy Dominguez Work Phone: [facility] 07-15-2023 13:21-0400 Body weight 61.23 kg MD Timothy Dominguez Work Phone: [facility] 07-15-2023 11:04-0400 Diastolic blood pressure 79 mm[Hg] MD Timothy Dominguez Work Phone: [facility] 07-15-2023 11:04-0400 Heart rate 85 /min MD Timothy Dominguez Work Phone: [facility] 07-15-2023 11:04-0400 Respiratory rate 14 /min MD Timothy Dominguez Work Phone: [facility] 07-15-2023 11:04-0400 SaO2% (BldA) [Mass fraction] 100 % MD Timothy Dominguez Work Phone: [facility] 07-15-2023 11:04-0400 Systolic blood pressure 146 mm[Hg] MD Timothy Dominguez Work Phone: [facility] 07-15-2023 10:17-0400 Body temperature 97 [degF] MD Timothy Dominguez Work Phone: [facility] 07-15-2023 09:52-0400 Inhaled oxygen flow rate 8 L/min MD Timothy Dominguez Work Phone: [facility] 07-15-2023 07:58-0400 Body height 170.18 cm MD Timothy Dominguez Work Phone: [facility] 07-15-2023 07:58-0400 Body mass index (BMI) [Ratio] 22.8 kg/m2 MD Timothy Dominguez Work Phone: [facility] 07-15-2023 07:58-0400 Body weight 66 kg MD Rugen Angelica Work Phone: [facility] 05-19-2023 07:38-0400 Blood Pressure Location Cecy Timmis [facility] 05-19-2023 07:38-0400 Diastolic blood pressure 75 mm[Hg] Cecy Timmis [facility] 05-19-2023 07:38-0400 Heart rate 54 /min Cecy Timmis [facility] 05-19-2023 07:38-0400 Mean blood pressure 101 mm[Hg] Cecy Timmis [facility] 05-19-2023 07:38-0400 Systolic blood pressure 151 mm[Hg] Cecy Timmis [facility] 05-19-2023 07:37-0400 Heart rate 56 /min Cecy Timmis [facility] 05-19-2023 07:37-0400 SaO2% (BldA) [Mass fraction] 100 % Cecy Timmis [facility] 05-19-2023 07:37-0400 Respiratory rate 16 /min Cecy Timmis [facility] 05-19-2023 07:37-0400 Body temperature 98.24 [degF] Cecy Timmis [facility] 05-19-2023 07:37-0400 Blood Pressure Location Cecy Timmis [facility] 05-19-2023 07:37-0400 Diastolic blood pressure 73 mm[Hg] Cecy Timmis [facility] 05-19-2023 07:37-0400 Mean blood pressure 99 mm[Hg] Cecy Timmis [facility] 05-19-2023 07:37-0400 Systolic blood pressure 151 mm[Hg] Cecy Lockhart [facility] Encounters Encounter Date Encounter Type Care Provider Facility Start: 12-09-2023 End: 12-09-2023 Woodrow Gay MD Work Phone: [facility] Start: 12-09-2023 End: 12-09-2023 Bamboo flowsheet Eric Gay MD Work Phone: [facility] Start: 12-09-2023 End: 12-09-2023 Office outpatient visit 25 minutes Eric Gay MD Work Phone: [facility] Comment on above: Postoperative hypoth yroidism (CMS/HCC) (Primary Dx); Vitamin D deficiency Start: 12-03-2023 End: 12-03-2023 Clinisync Result Encounter Generic External Data Provider [facility] Unsolicited Start: 12-03-2023 End: 12-03-2023 Clinisync Result Encounter Generic External Data Provider [facility] External [facility] Unsolicited Start: 10-26-2023 End: 10-26-2023 ambulatory TIMOTHY DOMINGUEZ Not Available Start: 08-24-2023 End: 08-24-2023 ambulatory MITCHELL NELSON Not Available Start: 08-16-2023 End: 08-16-2023 Patient encounter procedure MD Timothy Dominguez Work Phone: [facility] [place] Work Phone: Start: 08-16-2023 End: 08-16-2023 ambulatory MD Timothy Dominguez Work Phone: [facility] Work Phone: Start: 07-21-2023 End: 07-21-2023 ambulatory MITCHELL NELSON Not Available Start: 07-16-2023 End: 07-16-2023 ambulatory MITCHELL NELSON Not Available Start: 07-15-2023 End: 07-15-2023 Admission to same day surgery center MD Timothy Dominguez Work Phone: [facility] [place] Start: 07-15-2023 End: 07-15-2023 ambulatory MD Timothy Dominguez Work Phone: [facility] Work Phone: Start: 07-01-2023 End: 07-01-2023 Patient encounter procedure MD Timothy Dominguez Work Phone: [facility] Work Phone: Start: 07-01-2023 End: 07-01-2023 ambulatory MD Timothy Dominguez Work Phone: [facility] Work Phone: Start: 07-01-2023 Encounter for preprocedural laboratory examination Mitchell Nelson [facility] Start: 06-28-2023 End: 06-28-2023 ambulatory MITCHELL NELSON Not Available Start: 05-19-2023 End: 05-20-2023 ambulatory Cecy H Timmis Facility:[facility] Start: 05-19-2023 End: 05-19-2023 Patient encounter procedure Cecy H Timmis [facility] Start: 05-10-2023 End: 05-10-2023 ambulatory TIMOTHY DOMINGUEZ Not Available Start: 04-19-2023 End: 06-11-2023 Pre-admission assessment Cecy H Timmis [facility] Start: 04-19-2023 End: 04-19-2023 ambulatory CECY H TIMMIS Not Available Start: 02-17-2023 End: 02-17-2023 ambulatory CECY H TIMMIS Not Available Start: 01-04-2023 End: 01-04-2023 ambulatory CECY H TIMMIS Not Available Start: 12-22-2022 End: 12-22-2022 ambulatory CECY H TIMMIS Not Available Start: 12-24-2021 End: 12-25-[address] TIMOTHY DOMINGUEZ Facility:[facility] Procedures Date Procedure Procedure Detail Performing Clinician Start: 12-03-2023 ALL T3 FREE Generic Ex ternal Data Provider Start: 12-03-2023 ALL THYROID STIM HORMONE Generic External Data Provider Start: 12-03-2023 ALL THYROXINE (T4) FREE Generic External Data Provider Start: 07-15-2023 End: 07-15-2023 Lobectomy of thyroid gland MD Timothy Dominguez Work Phone: Start: 12-30-2022 Mammography Generic Pr ovider Ligation of fallopian tube H ilary Timmis Removal of ovarian cyst Courtney ry Timmis Plan of Treatment Date Care Activity Detail Author Start: 05-27-2026 Screening for malignant neoplasm of colon [facility] Start: 10-16-2024 Influenza vaccination Influenza Vaccine (#1) [facility] Comment on above: Postponed from 10/17/2023 (Other Medical Reasons) Start: 06-08-2024 End: 06-08-2024 Patient encounter procedure 06/08/2024 9:40 AM EDT Office Visit [facility] [address] [place] [address] Eric Gay MD [address] [place] [address] [facility] Start: 04-24-2024 End: 04-24-2024 Patient encounter procedure 04/24/2024 8:00 AM EDT Office Visit [facility] [address] [place] [address] Timothy Dominguez MD [address] [place] [address] [facility] Start: 12-31-2023 Screening for malignant neoplasm of breast Mammogram [facility] Start: 12-09-2023 End: 12-08-2024 Thyrotropin [Units/volume] in Serum or Plasma TSH Lab Routine Postoperative hypothyroidism (CMS/HCC) Expected: 12/09/2023 (Approximate), Expires: 12/08/2024 [facility] Comment on above: Expected: 12/09/2023 (Approximate), Expi res: 12/08/2024 Start: 12-09-2023 End: 12-08-2024 Thyroxine (T4) free [Mass/volume] in Serum or Plasma T4, free Lab Routine Postoperative hypothyroidism (CMS/HCC) Expected: 12/09/2023 (Approximate), Expires: 12/08/2024 [facility] Comment on above: Expected: 12/09/2023 (Approximate), Expi res: 12/08/2024 Start: 12-09-2023 End: 12-08-2024 Triiodothyronine (T3) Free [Mass/volume] in Serum or Plasma T3, free Lab Routine Postoperative hypothyroidism (CMS/HCC) Expected: 12/09/2023 (Approximate), Expires: 12/08/2024 [facility] Work Phone: Comment on above: Expected: 12/09/2023 (Approximate), Expi res: 12/08/2024 Start: 12-09-2023 End: 12-09-[address] [facility] Comment on above: Arrived Start: 09-23-2023 Pneumococcal Vaccine: 65+ Years (1 of 1 - PCV) Pneumococcal Vaccine: 65+ Years (1 of 1 - PCV) [facility] Start: 07-15-2023 End: 07-15-2023 [facility] Start: 07-15-2023 [facility] Start: 07-15-2023 [facility] Start: 1988 Screening for malignant neoplasm of cervix [facility] Start: 09-23-1979 Screening for malignant neoplasm of cervix Pap Smear [facility] Start: 1958 Screening for malignant neoplasm of colon [facility] Patient Education Know your Meds [facility] Work Phone: Patient referral [facility] Work Phone: Immunizations Immunization Date Immunization Notes Care Provider Gwen cervantes 06-17-2020 COVID-19 mRNA Comirnaty (Pfizer) MD Timothy Dominguez Work Phone: [facility] 05-27-2020 COVID-Bernice Browne (Pfizer) MD Timothy Dominguez Work Phone: [facility] 07-06-2012 diphtheria, tetanus toxoids and pertussis vaccine Generic Provider [facility] Payers Date Payer Category Payer Self-pay 2019 Private Health Insurance [facility] [id number] 1959 Unknown [id number] 1958 Unknown [id number] 2.16.840.1.573091.3.579 .2.593 1958 Unknown [id number] 2.16.840.1.812910.3.579 .2.727 1958 Unknown [id number] 2.16.840.1.943239.3.579 .2.1259 1958 Unknown [id number] 2.16.840.1.853632.3.579 .2.1259 1958 Unknown [id number] 2.16.840.1.815053.3.579 .2.1259 1958 Unknown [id number] 2.16.840.1.170460.3.579 .2.1259 1958 Unknown [id number] 2.16.840.1.730290.3.579 .2.125 1958 Unknown [id number] 2.16.840.1.592691.3.579 .2.1259 1958 Unknown [id number] 2.16.840.1.384600.3.579 .2.1259 1958 Unknown [id number] 2.16.840.1.349515.3.579 .2.1259 1958 Unknown [id number] 2.16.840.1.614761.3.579 .2.9 1958 Unknown [id number] 2.16.840.1.020133.3.579 .2.1259 Unknown [id number] 2.16.840.1.175300.3.579 .2.531 Unknown [id number] 2.16.840.1.600605.3.579 .2.531 Unknown [id number] 2.16.840.1.806789.3.579 .2.531 Unknown [id number] 2.16.840.1.710274.3.579 .2.531 Social History Date Type Detail Facility Tobacco smoking status [facility] Start: 07-15-2022 End: 10-25-2023 Sex Assigned At Female [facility] Start: 07-01-2023 End: 08-24-2023 Tobacco smoking status [facility] Ex-smoker (finding) [facility] Start: 1960 Sex Assigned At Female F [facility] History of tobacco use Current smoker [facility] History of tobacco use Cigarette Smoker [facility] Start: 08-24-2023 End: 10-25-2023 Cigarettes smoked current (pack per day) - Reported 0.3 [facility] Start: 08-24-2023 Tobacco use and exposure Smokeless tobacco non-user [facility] Start: 11-23-2023 End: 12-09-2023 Alcoholic beverage intake Ex-drinker (finding) [facility] How often do you nee d to have someone help you when you read instructions, pamphlets, or other written material from your doctor or pharmacy [SILS] Never [facility] Within the last year , have you been afraid of your partner or ex-partner? No [facility] Are you now , , , , never or living with a partner? [facility] How often to you hav e a drink containing alcohol? Monthly or less [facility] How many standard drinks containing alcohol do you have on a typical day? 1 or 2 [facility] How often do you hav e 6 or more drinks on 1 occasion? Never [facility] Do you feel stress - tense, restless, nervous, or anxious, or unable to sleep at night because your mind is troubled all the time - these days [OSQ] Only a little [facility] (I/We) worried wheth er (my/our) food would run out before (I/we) got money to buy more. Never true [facility] Start: 05-10-2023 Alcohol Comment Occasional soc ial drinks [facility] Start: 1960 Sex assigned at Not on file [facility] Goals Date Patient Goal Desired Activity /State Functional Status Date Assessment Result Facility 05-19-2023 Functional Status No [facility] History of Present illness Narrative 12-09-2023 Eric Gay MD - 12/09/2023 11:00 AM EDT Note Date & Type Note Facility 12-09-2023 History of Presen t illness Narrative Juan Antonio Baca is a 63 y.o. female No ref. provider found presents with chief complaint of THYROID HPI: Interim History 11/2023 Followup visit on 12/08 in July/2023 for lab. TSH 0.06, free T4 1.86 (0..75-1.64), FT3 3.2 (2.19-3.98). She is status post surgery in 07/15/2023 for total thyroidectomy by Dr. Nelson and she is currently on levothyroxine 125 mcg daily. Interim History 07/2023 Followup visit on 08/05/2023 for lab. TSH 24, free T4 1.10 (0.76-1.13), T3 1.96. She is status post surgery in 07/15/2023 for total thyroidectomy by Dr. Nelson and she is currently on levothyroxine 100 mcg daily. Calcium within normal limits at 8.7. Interim History: 03/2023 Follow-up office visit 04/09/2023 for labs: TSH 3.581; free T3 2.44 (2.18-3.9); free T4 0.86 (0.76-1.46), on methimazole 10 mg once daily, off metoprolol 25 mg daily since 3 weeks. Interim History: 01/2023 Follow-up office visit 01/15/2023 for labs: TSH 0.007; free T3 2.5 (2.18-3.9); free T4 0.89 (0.76-1.46), on methimazole 10 mg bid, metoprolol 25 mg daily . Interim History: 11/2022 Follow-up office visit 12/10/2022 for labs: TRAB 2.6 (0-1.75); TPO >600 (0-34); TG antibody 482; TSH 0.001; free T3 high at 7.2 (2.18-3.9); free T4 high at 2.1 (0.76-1.46). So, all labs suggestive of Grave's disease. HPI: 11/2022 New patient sent from Dr. Cecy Lockhart for hyperthyroidism and multinodular goiter. Labs done in September 2022: TSH less than 0.01; free-T4 3.0 (0.8-1.8); free T3 12.6 (2.3-4.4); she has, one hypo and one hyper. Ultrasound done also shows multinodular goiter with two nodules on the right lobe, small. There are three nodules on the left lobe, one is 11 x 10 x 8 mm, solid, hypoechoic, TR3; number 3, is 20 x 17 x 14 mm, solid, isoechoic, TR2; number 4 is 15 x 14 x 11 mm, which is solid, isoechoic, TR3; nodule number 5 is 14 x 19 x 12 mm, which is mixed and hyperechoic, but taller than wider and TR4, so recommended FNA. She is following Dr. Lockhart. No biopsy done. He plans to do a repeat ultrasound next month. SUBJECTIVE: MEDICATIONS: Current Outpatient Medications Medication Instructions atorvastatin (LIPITOR) 20 mg, Oral, Daily Calcium Carbonate (CALCI-CHEW PO) glucosamine-chondroitin 500-400 MG tablet 1 tablet, Daily levothyroxine (SYNTHROID, LEVOXYL) 112 mcg, Oral, Daily magnesium 250 MG tablet Every 24 hours metoprolol succinate XL (TOPROL-XL) 25 mg, Daily Multiple Vitamin (Multivitamin Adult) tablet Orally olmesartan (BENIcar) 20 MG tablet TAKE 1 TABLET BY MOUTH EVERY DAY IN THE MORNING omega-3 (Fish Oil) 500 MG capsule 1 capsule, Every 12 hours ALLERGIES: No Known Allergies Past Medical History: Diagnosis Date Depression (CMS/HCC) 07/1999 Family history of thyroid disorder Headache 06/2022 History of hyperthyroidism Hypertension (CMS/HCC) 08/2022 Ovarian cyst Post-surgical hypothyroidism (CMS/HCC) Thyroid nodule greater than or equal to 1.5 cm in diameter incidentally noted on imaging study (CMS/HCC) 09/25/2022 Seen on Carotid Dopplers Varicella 1971 Past Surgical History: Procedure Laterality Date COLONOSCOPY 2009 normal CYST REMOVAL 2011 Procedure:benign paratubal cyst fallopian;Disease: DEXA BONE DENSITY 2013 ENDOMETRIAL BIOPSY 2012 FNA W IMAGING GUIDANCE 01/12/2023 thyroid NECK SURGERY 07/15/2023 Exploration with control of cervical hematoma OTHER SURGICAL HISTORY 2012 mammogram PAP SMEAR 03/01/2012 PELVIC LAPAROSCOPY 2011 laparoscopy-operative TOTAL THYROIDECTOMY 07/15/2023 TUBAL LIGATION Bilateral 1988 REVIEW OF SYMPTOMS: 14 POINT OF SYSTEM REVIEWED AND NEGATIVE OBJECTIVE: Lab Results Component Value Date TSH <0.01 (L) 10/06/2022 Lab Results Component Value Date T4FREE 3.3 (H) 10/06/2022 Lab Results Component Value Date FREET3 12.6 (H) 10/06/2022 Visit Vitals Pulse 72 Comment: O2 SAT 99% Resp 16 Ht 5' 7 Wt 144 lb BMI 22.55 kg/m Smoking Status Former BSA 1.76 m Physical Exam Constitutional: Appearance: She is normal weight. HENT: Head: Normocephalic. Cardiovascular: Rate and Rhythm: Normal rate and regular rhythm. Pulmonary: Effort: Pulmonary effort is normal. Breath sounds: Normal breath sounds. Abdominal: General: Abdomen is flat. Palpations: Abdomen is soft. Musculoskeletal: General: Normal range of motion. Cervical back: Normal range of motion and neck supple. Skin: General: Skin is warm. Neurological: General: No focal deficit present. Mental Status: She is alert. Psychiatric: Mood and Affect: Mood normal. Thought Content: Thought content normal. Neck surgical scar due to total thyroidectomy ASSESSMENT AND PLAN: Assessment/Plan Diagnoses and all orders for this visit: Postoperative hypothyroidism (CMS/HCC) - levothyroxine (Synthroid, Levoxyl) 112 MCG tablet; Take 1 tablet (112 mcg) by mouth Daily - T3, free; Future - T4, free; Future - TSH; Future I will decrease the dose to112 mcg daily due to TSH suppressed and free T4 in the side Vitamin D deficiency Follow up in about 6 months (around 06/08/2024). documented in this encounter [facility] Healthcare History and physical note 05-27-2023 Note Date & Type Note Facility 05-27-2023 Note [id number] 2#1.00TIFF [facility] Evaluation + Plan note Note Date & Type Note Facility Evaluation + Plan note Future Appointments Appointment Date:06/10/2023 08:00:00 AM Scheduled Provider: Location:[facility] Surgical Services Appointment Type:Surgery FT [facility] Evaluation note Note Date & Type Note Facility Evaluation note [facility]: Evaluation note Note Date & Type Note Facility Evaluation note Diagnosis Elevated BP without diagnosis of hypertension- Primary Hypercholesteremia (CMS/HCC) Pure hypercholesterolemia Bilateral carotid bruits Elevated BP without diagnosis of hypertension- Primary Benign essential hypertension (CMS/HCC) Essential hypertension, benign Abnormal glucose tolerance test Impaired glucose tolerance test Hypercholesteremia (CMS/HCC) Pure hypercholesterolemia Thyroid nodule (CMS/HCC)- Primary Nontoxic uninodular goiter Encounter for screening for colorectal malignant neoplasm Benign essential hypertension (CMS/HCC) Essential hypertension, benign Sharon's thyroiditis (CMS/HCC) Chronic lymphocytic thyroiditis Hypercholesteremia (CMS/HCC) Pure hypercholesterolemia Hypoglycemia- Primary Hypoglycemia, unspecified Hypercholesteremia (CMS/HCC) Pure hypercholesterolemia Postoperative hypothyroidism ([facility]/HCC)- Primary Postsurgical hypothyroidism Vitamin D deficiency documented in this encounter [facility] Hospital course Narrative Note Date & Type Note Facility Hospital course Narrative No data available for this section [facility] Hospital Discharge instructions Note Date & Type Note Facility Hospital Discharge instructions No data available for this section [facility] Hospital Discharge instructions Note Date & Type [...] to follow up in one week. [] [facility] Work Phone: Progress note Note Date & Type Note Facility Progress note No data available for this section [facility] Summary Purpose Family History Relationship Condition Age at Onset Recorded Date/T cate father Myocardial infarction Unknown Heart valve disease Unknown Not Specified Myocardial infarction Unknown Dementia Unknown sister Long QT syndrome Unknown Relationship Condition Age at Onset Recorded Date/T cate father Myocardial infarction Unknown Heart valve disease Unknown mother Myocardial infarction Unknown Dementia Unknown sister Long QT syndrome Unknown Advance Directives Advance Directive Response Recorded Date/ Time Advance Directives No June 30 1:33pm Chief Complaint and Reason for Visit Chief Complaint Thyroid Nodules Chief Complaint Thyroid Nodules Thyroid Nodules Chief Complaint Thyroid Nodules Thyroid Nodules E04.2 Additional Source Comments INFORMATION SOURCE (unrecogn ized section and content) DATE CREATED AUTHOR 12/29/2021 [employer] DATE CREATED AUTHOR AUTHOR'S ORGANIZ ATION 05/28/2023 [facility] DATE CREATED AUTHOR AUTHOR'S ORGANIZ ATION 08/18/2023 [facility] DATE CREATED AUTHOR AUTHOR'S ORGANIZ ATION 10/28/2023 [facility] EPIC Patient Care team informatio [...] 2023 Team Status: Inactive Member Role Status Dates Mitchell Nelson DO Attending Provider Active S tart: July 15, 2023 End: July 15, 2023 Timothy Dmoinguez MD Primary Care Provider Active S tart: July 15, 2023 End: July 15, 2023 Team Status: Inactive Member Role Status Dates Timothy Dominguez MD Primary Care Provider Active S tart: August 16, 2023 End: August 16, 2023 Mitchell Nelson DO Attending Provider Active S tart: August 16, 2023 End: August 16, 2023 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 Specialty Start Date End Date Timothy Dominguez MD [address] [place] [address] PCP - General Family Medicine 07/15/22 Cecy Lockhart MD [address] [place] [address] Referring Physician Otolaryngology 08/24/23 Mitchell Nelson DO [address], [place] [id number] Otolaryngology 08/24/23 Eric Gay MD [address] [place], [place] [id number] Endocrinology 08/24/23 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 Specialty Start Date End Date Timothy Dominguez MD [address] [place] [address] PCP - General Family Medicine 07/15/22 Cecy Lockhart MD [address] [place] [address] Referring Physician Otolaryngology 08/24/23 Mitchell Nelson DO [address] [place] [address] Otolaryngology 08/24/23 Eric Gay MD [address] [place] [address] Endocrinology 08/24/23 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 Specialty Start Date End Date Timothy Dominguez MD [address] [facility] [address] [place] [address] PCP - General Family Medicine 07/15/22 Cecy Lockhart MD [address] [place] [address] Referring Physician Otolaryngology 08/24/23 Mitchell Nelson DO [address] [place] [address] Otolaryngology 08/24/23 Eric Gay MD [address] [place] [address] Endocrinology 08/24/23 Goals (unrecognized section and content) Goals may be documented in a n alternate section Reason for Visit (unrecogniz ed section and content) Reason Comments THYROID FOR RECORDS PERTAINING TO PATIENTS WHO ARE [...] BE BASED ON THE PRIMARY CLINICAL RECORDS. [facility]. provides no warranty or guarantee of the accuracy or completeness of information in this document.
== END 2024-01-05 07:01 | disposition home or self-care (01) ==
LOC: MAMMO 07:00
PROVIDERS: PCP Family Medicine; Visit Provider Family Medicine
DX: Z12.31 Encounter for screening mammogram for malignant neoplasm of breast (principal)
CPT/HCPCS: 77063; 77067

== ENCOUNTER 2024-05-26 07:01 | Outpatient (OUT) | payer OTHER, SELFPAY ==
--- OUTSIDE RECORDS SUMMARY | 2024-05-26 07:05 | XMS_ITS | CCD ---
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 Role Phone ANGELICA, DR REESE Attending Unavailable ANGELICA, DR REESE Consulting Unavailable ANGELICA, DR REESE Primary Care Unavailable ANGELICA, DR REESE Admitting Unavailable WEST, DR ALFREDO Latham Consulting Unavailable TIMOTHY DOMINGUEZ Primary Care Physician [phone] Cecy Hadley Referring Unavailable Cecy Hadley Attending Unavailable Cecy Hadley Admitting Unavailable MurDO Mitchell mcclure Attending Provider [phone] MD Timothy Dominguez Primary Care Provider Mitchell Nelson Admitting Unavailable Mitchell Nelson Attending Unavailable Timothy Dominguez Primary Care Unavailable Mitchell Nelson Attending Unavailable Mitchell Nelson Admitting Unavailable Timothy Dominguez Primary Care Unavailable Timothy Dominguez Primary Care Unavailable Mitchell Nelson Admitting Unavailable Murkami, Mitchell Attending Unavailable Mitchell Nelson Admitting Unavailable Mitchell Nelson Attending Unavailable Timothy Dominguez Primary Care Unavailable Timothy Dominguez MD Primary Care Provider Cecy Hadley MD Unavailable Mitchell Nelson DO W Unavailable Eric Armenta MD Unavailable BROCK EDMOND Attending Unavailable TIMOTHY DOMINGUEZ Attending Unavailable TIMOTHY DOMINGUEZ Attending Unavailable MITCHELL NELSON W Attending Unavailable MITCHELL NELSON W Attending Unavailable MITCHELL NELSON W Attending Unavailable MITCHELL NELSON W Attending Unavailable CECY HADLEY Referring Unavailable TIMOTHY DOMINGUEZ Attending Unavailable ERIC ARMENTA Attending Unavailable BROCK EDMOND Attending Unavailable BROCK EDMOND Referring Unavailable Medications Current Medications Medication Drug Class(es) Dates Sig (Normalized) Sig (Original) ascorbic acid 60 mg / beta carotene 5000 unt / copper sulfate 40 mg / dl-alpha tocopheryl acetate 30 unt / sodium selenite 0.04 mg / zinc oxide 40 mg oral tablet (12 sources) Vitamin C Multiple Vitamin (Multivitamin Adult) tablet Orally Active atorvastatin 20 mg oral tablet (19 sources) HMG-CoA Reductase Inhibitor Start: 07-01-2023 End: 10-26-2023 take 1 tablet by mouth once daily atorvastatin (Lipitor) 20 MG tablet Indications: Hypercholesteremia (CMS/HCC) Take 1 tablet (20 mg) by mouth Daily 100 tablet 3 10/26/2023 Active Start: 05-19-2023 [facility] daily atorvastatin 20 mg Tab 20 mg = 1 tab(s), Oral, Daily, Refills(s) 0, High cholesterol Start Date: 05/19/23 Status: Ordered Calcium (2 sources) Phosphate Binder, Calcium Start: 05-19-2023 calcium (as carbonate) 500 mg oral tablet Refills(s) 0 Start Date: 05/19/23 Status: Ordered Calcium Carbonate (12 sources) Calcium Carbonat e (CALCI-CHEW PO) Active chondroitin sulfates 400 mg / glucosamine sulfate 500 mg oral tablet (10 sources) take 1 tablet by mouth once daily glucosamine-chond roitin 500-400 MG tablet Take 1 tablet by mouth Daily Active Fish Oils (14 sources) Start: 05-19-2023 Fish Oil Refill(s) 0 Start Date: 05/19/23 Status: Ordered take 1 capsule by [facility] every twelve hours omega-3 (Fish Oil) 500 MG capsule 1 capsule every 12 (twelve) hours. Active levothyroxine sodium 0.112 mg oral tablet (14 sources) l-Thyroxine Start: 03-13-2024 take 1 tablet by mouth once daily levothyroxine (Synthroid, Levoxyl) 112 MCG tablet Indications: Postoperative hypothyroidism (CMS/HCC) TAKE 1 TABLET BY MOUTH DAILY 90 tablet 1 03/13/2024 Active Start: 12-09-2023 End: 03-08-2024 take 1 tablet [...] morning. Take before meals. 08/05/2023 Active Magnesium (12 sources) magnesium 250 MG tablet 1 (one) time each day at the same time. Active Magnesium Oxide (2 sources) Start: 05-19-2023 magnesium oxide Refills(s) 0 Start Date: 05/19/23 Status: Ordered 24 hr metoprolol succinate 25 mg extended release oral tablet (17 sources) beta-Adrenergic Home Start: 10-01-2023 take 1 [...] Ordered olmesartan medoxomil 20 mg oral tablet (17 sources) Angiotensin 2 Receptor Home Start: 01-27-2024 take 1 tablet by mouth once daily in the morning olmesartan (BENIcar) 20 MG tablet Indications: Elevated BP without diagnosis of hypertension TAKE 1 TABLET BY MOUTH EVERY DAY IN THE MORNING 100 tablet 3 01/27/2024 Active Start: 01-25-2023 take 1 tablet by rob th once daily in the morning olmesartan (BENIcar) [...] Problem Classification Problem Date Documented Date Episodic/Chronic Acquired foot deformities (4 sources) Hallux valgus (acquired), left foot; Translations: [Hallux valgus (acquired)] 01-25-2024 Chronic Acquired foot deformities (2 sources) Bunion; Translations: [Bunion of left foot] 01-25-2024 Episodic Complications of surgical procedures or medical care (2 sources) Postoperative hypothyroidism; Translations: [Postprocedural hypothyroidism] 12-09-2023 Chronic Diseases of white blood cells (12 sources) Leukopenia; Translations: [Decreased white blood cell count, unspecified] Onset: 07-17-2022 07-17-2022 Chronic Disorders of lipid metabolism (20 sources) Hyperlipidemia; Translations: [Hypercholesterolemi a] Onset: 07-17-2022 05-19-2023 Chronic Essential hypertension (20 sources) Hypertensive disorder; Translations: [Benign essential hypertension] Onset: 11-03-2022 05-19-2023 Chronic Menopausal disorders (20 sources) Decreased estrogen level; Translations: [Other primary ovarian failure] Onset: 07-17-2022 07-17-2022 Chronic Nutritional deficiencies (2 sources) Vitamin D deficiency; Translations: [Vitamin D deficiency, unspecified] 12-09-2023 Chronic Other congenital anomalies (2 sources) Porokeratosis; Translations: [Other specified congenital malformations of skin] 01-25-2024 Chronic Other connective tissue disease (2 sources) Pain in both feet; Translations: [Pain in right foot] 01-25-2024 Episodic Other connective tissue disease (2 sources) Pain in hallux; Translations: [Pain in right toe(s)] 03-28-2024 Episodic Other endocrine disorders (14 sources) Hypoglycemia; Translations: [Hypoglycemia, unspecified] Onset: 10-26-2023 10-26-2023 Chronic Other nutritional; endocrine; and metabolic disorders (12 sources) Gilbert's syndrome; 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] Onset: 07-17-2022 07-17-2022 Chronic Other screening for suspected conditions (not mental disorders or infectious disease) (4 sources) Encounter for screening mammogram for malignant neoplasm of breast; Translations: [ENC SCR MAMMO MALIG NEOPLASM BREAST] Onset: 12-24-2021 Episodic Other skin disorders (4 sources) Callosity; Translations: [Corns and callosities] 01-25-2024 Episodic Other skin disorders (2 sources) Dystrophia unguium; Translations: [Nail dystrophy] 03-28-2024 Episodic Thyroid disorders (20 sources) Hyperthyroidism; Translations: [Nontoxic multinodular goiter] Onset: 09-29-2022 05-19-2023 Chronic Past or Other Problems Problem Classification Problem Date Documented Da te Episodic/Chronic Diabetes mellitus without complication (12 sources) Abnormal glucose tolerance test; Translations: [Other abnormal glucose] Onset: 11-03-2022 11-03-2022 Episodic Other bone disease and musculoskeletal deformities (12 sources) Osteopenia; Translations: [Other specified disorders of bone density and structure, other site] Onset: 07-17-2022 07-17-2022 Episodic Other circulatory disease (12 sources) Elevated blood-pressure reading without diagnosis of hypertension; Translations: [Elevated blood-pressure reading, without diagnosis of hypertension] Onset: 09-14-2022 09-14-2022 Episodic Other circulatory disease (12 sources) Carotid bruit; Translations: [Other specified symptoms and signs involving the circulatory and respiratory systems] Onset: 09-14-2022 09-14-2022 Episodic Other nutritional; endocrine; and metabolic disorders (12 sources) Unintentional weight loss; Translations: [Abnormal weight loss] Onset: 09-29-2022 09-29-2022 Episodic Other upper respiratory disease (12 sources) Hoarse; Translations: [Dysphonia] Onset: 09-29-2022 09-29-2022 Episodic Ovarian cyst (14 sources) Cyst of ovary; Translations: [Unspecified ovarian cyst, unspecified side] Onset: 07-17-2022 05-19-2023 Episodic Results Test Name Value Interpretation Reference Range Facility XR Foot - left 3 [facility] Result: 3 views foot: AP, MO, and lateral of the left foot were taken and show no fractures or dislocations. There is increase in IM 1-2 angle with 1st met head prominent medially and lateral deviation of the hallux, causing incongruency at 1st MTPJ. There is valgus rotation of the 1st metatarsal, the tibial sesamoid position is 6. Some cystic changes noted in 1st met head on MO view. Moderate joint space loss At 1st MTPJ [facility] Radiology Study observation (narrative) [facility] ALL T3 FREEon 12-03-2023 Free T3 [Mass/Vol] 3.2 pg/mL 2.18 - 3. 98 pg/mL [facility] ALL THYROID STIM HORMONEon 1 TSH Qn 0.06 m[IU]/L Low [facility] ALL THYROXINE (T4) FREEon Free T4 [Mass/Vol] 1.86 ng/dL High 0.76 - 1. 46 ng/dL [facility] No Panel Informationon 12-02 Interpretation and review of laboratory results Abnormal [facility] Thyrotropin [Units/volume] i n Serum or PlasmaOrdered By: Mitchell Nelson on 08-16-2023 TSH Qn 1.34 m[IU]/L Normal 0.45-5.33 [facility] Comment on above: Result Comment: PERF ORMED BY: [place] [address] PATHOLOGIST GM LINDA QUINN M.D. Performed By: #### T 3T, TSH3, T4T #### [address] Thyroxine (T4) [Mass/volume] in Serum or PlasmaOrdered By: Mitchell Nelson on 08-16-2023 T4 [Mass/Vol] 12.56 ug/dL High 5.39-11.82 [facility] Comment on above: Performed By: #### T 3T, TSH3, T4T #### [facility] [address] [place] [address] Triiodothyronine (T3) Totalo n 08-16-2023 Triiodothyronine (T3) Total 1.11 ng/mL Normal 0.87-1.78 [facility] Comment on above: Performed By: #### T 3T, TSH3, T4T #### [address] Triiodothyronine (T3) [Mass/ volume] in Serum or PlasmaOrdered By: Mitchell Nelson on 08-16-2023 T3 [Mass/Vol] 1.11 ng/mL 0.87-1.78 [facility] Calcium [Mass/volume] in Ser um or PlasmaOrdered By: Mitchell Nelson on 07-15-2023 Calcium [Mass/Vol] 9.2 mg/dL Normal 8.6-10.3 [facility] Comment on above: Order Comment: Comme nt Call to Dr. Nelson Result Comment: PERF ORMED BY: [place] [address] PATHOLOGIST GM LINDA QUINN M.D. Performed By: #### P TH, [place] #### [place] [address] [place] Luis Angel 07-15-2023 L Specimen: [id number] Received: 07/15/23 Status: ANDRY Bojorquez Num: [id number] Spec Type: Surgical Subm Dr: Mitchell Nelson DO Tissues: A THYROID - Lobe (LT LOBE/ISTHMUS) B THYROID - Lobe (RT LOBE) Procedures: HE/10, Gross/Micro L5/2 Age/ Patient Sex Location Account Attending Physician Key Baca 62/F [place] [id number] Mitchell Nelson DO SPEC NUM: [id number] RECD: 07/15/23 STATUS: SOUAta BOJORQUEZ NUM: [id number] ESTRADA: 07/15/[address]: Mitchell Nelson DO ENTERED: 07/15/[address]: SPEC TYPE: Surgical DEPT: S ORDERED: HE/10, Gross/Micro L5/2 ORDERED: HE, Gross/Micro L5/2 Pathological Diagnosis A. Thyroid, left [...] multinodular blackburn to dark brown cut surface. Energy Auditor sections and 5 cassettes. B. Specimen is labeled right lobe. Specimen consists of a thyroid lobe 4.2 x 2.7 x 2 cm. All outer surfaces are inked blue. Reveals a multinodular cut surface. Submitted all in 5 cassettes. Specimen: [id number] Received: 07/15/23 Status: ANDRY Bojorquez Num: [id number] Spec Type: Surgical Subm Dr: Mitchell Nelson DO Tissues: A THYROID - Lobe (LT LOBE/ISTHMUS) B THYROID - Lobe (RT LOBE) Procedures: 10, Gross/Micro L5/2 Patient: Key Baca [id number] (Continued) Specimen: [id number] Received: 07/15/23 (Continued) Signed (signature on file) Conner Kim MD 07/16/23 1804 Specimen: [id number] Received: 07/15/23 Status: ANDRY [place] Num: [id number] Spec Type: Surgical Subm Dr: Mitchell Nelson DO Tissues: A THYROID - Lobe (LT LOBE/ISTHMUS) B THYROID - Lobe (RT LOBE) Procedures: Miquel BAIG/Vickie L5/2 Patient: Key Baca [id number] (Continued) Specimen: [id number] Received: 07/15/23 (Continued) CPT Codes 69788a9 Specimen: [id number] Received: 07/15/23 Status: ANDRY Bojorquez Num: [id number] Spec Type: Surgical Subm Dr: Mitchell Nelson DO Tissues: A THYROID - Lobe (LT LOBE/ISTHMUS) B THYROID - Lobe (RT LOBE) Procedures: Anny, Miquel/Micro L5/2 Patient: Key Baca [id number] (Continued) Signed (signature on file) Conner Kim MD 07/16/23 1804 Normal [facility] Parathyrin.intact [Mass/volu me] in Serum or PlasmaOrdered By: Mitchell Nelson on 07-15-2023 Parathyrin.intact [Mass/Vol] 21.4 pg/mL [facility] Parathyroid Hormone Int[place]on 07-15-2023 Parathyroid Hormone Intact 21.4 pg/mL Normal [facility] Comment on above: Order Comment: Comme nt Call to Dr. Nelson Result Comment: PERF ORMED BY: [place] [address] PATHOLOGIST GM LINDA QUINN M.D. Performed By: #### P TH, [place] #### [address] Automated basophil %Ordered By: Mitchell Nelson on 07-01-2023 Basophils/100 WBC (Bld) 0.7 % Normal . [facility] Comment on above: Performed By: #### C BC #### [address] Automated basophil countOrde red By: Mitchell Nelson on 07-01-2023 Basophils (Bld) [#/Vol] 0.0 10*3/uL Normal 0.0-0.2 [facility] Comment on above: Result Comment: PERF ORMED BY: [place] [address] PATHOLOGIST GM LINDA QUINN M.D. Performed By: #### C BC #### [address] Automated blood monocyte cou ntOrdered By: Mitchell Nelson on 07-01-2023 Monocytes (Bld) [#/Vol] 0.4 10*3/uL Normal 0.0-0.8 [facility] Comment on above: Performed By: #### C BC #### [address] Automated eosinophil %Ordere d By: Mitchell Nelson on 07-01-2023 Eosinophils/100 WBC (Bld) 2.8 % Normal . [facility] Comment on above: Performed By: #### C BC #### [address] Automated eosinophil countOr dered By: Mitchell Nelson on 07-01-2023 Eosinophils (Bld) [#/Vol] 0.1 10*3/uL Normal 0.0-0.45 [facility] Comment on above: Performed By: #### C BC #### [address] Automated monocyte %Ordered By: Mitchell Nelson on 07-01-2023 Monocytes/100 WBC (Bld) 10.2 % Normal . [facility] Comment on above: Performed By: #### C BC #### [address] Automated neutrophil %Ordere d By: Mitchell Nelson on 07-01-2023 Neutrophils/100 WBC (Bld) 33.9 % Normal . [facility] Comment on above: Performed By: #### C BC #### [address] Basic Metabolic Panelon 06-15 GFR/1.73 sq M.predicted MDRD (S/P/Bld) [Vol rate/Area] mL/min/{1.73_m2} Normal [facility] Comment on above: Performed By: #### B TADEO TSH3 #### [address] Calcium [Mass/volume] in Ser um or PlasmaOrdered By: Mitchell Nelson on 07-01-2023 Calcium [Mass/Vol] 9.1 mg/dL Normal 8.6-10.3 [facility] Comment on above: Performed By: #### B TADEO, TSH3 #### [address] Carbon dioxide, total [Moles /volume] in Serum or PlasmaOrdered By: Mitchell Nelson on 07-01-2023 CO2 [Moles/Vol] 28.2 mmol/L Normal 21.0-31.0 [facility] Comment on above: Performed By: #### B TADEO TSH3 #### [address] Chloride [Moles/volume] in S berto or PlasmaOrdered By: Mitchell Nelson on 07-01-2023 Chloride [Moles/Vol] 101 mmol/L Normal 98-107 [facility] Comment on above: Performed By: #### B TADEO TSH3 #### [address] Complete Blood Count Auto Di ffon 07-01-2023 Mean Corpuscular HGB Conc 34.4 g/dL Normal 32.0-35.0 [facility] Comment on above: Performed By: #### C BC #### [address] NRBC% 0.1 /100{WBC} Normal 0-0.5 [facility] Comment on above: Performed By: #### C BC #### [address] Creatinine [Mass/volume] in Serum or PlasmaOrdered By: Mitchell Nelson on 07-01-2023 Creatinine [Mass/Vol] 0.78 mg/dL Normal 0.60-1.20 [facility] Comment on above: Performed By: #### B TADEO TSH3 #### [address] Erythrocyte distribution wid th [Ratio] by Automated countOrdered By: Mitchell Nelson on 07-01-2023 Erythrocyte distribution width (RBC) [Ratio] 12.6 % Normal 11.9-15.3 [facility] Comment on above: Performed By: #### C BC #### [address] Erythrocytes [#/volume] in B lood by Automated countOrdered By: Mitchell Nelson on 07-01-2023 RBC (Bld) [#/Vol] 3.63 10*6/uL Normal 3.60-5.00 [facility] Comment on above: Performed By: #### C BC #### [address] Glucose [Mass/volume] in Ser um or PlasmaOrdered By: Mitchell Nelson on 07-01-2023 Glucose [Mass/Vol] 99 mg/dL Normal 70-100 [facility] Comment on above: ADA recommended refe rence rangeRandom Glucose Reference Range is dependent on time and content of last meal. Glucose of more than 200 mg/dL in a nonstressed, ambulatory subject supports the diagnosis of Diabetes Mellitus. Result Comment: Carlotta om Glucose Reference Range is dependent on time and content of last meal. Glucose of more than 200 mg/dL in a nonstressed, ambulatory subject supports the diagnosis of Diabetes Mellitus. ADA recommended reference range Performed By: #### B MP, TSH3 #### [address] Hematocrit [Volume Fraction] of Blood by Automated countOrdered By: Mitchell Nelson on 07-01-2023 Hematocrit (Bld) [Volume fraction] 33.4 % Low 34.0-46.4 [facility] Comment on above: Performed By: #### C BC #### [address] Hemoglobin [Mass/volume] in BloodOrdered By: Mitchell Nelson on 07-01-2023 Hemoglobin (Bld) [Mass/Vol] 11.5 g/dL Low 11.8-15.4 [facility] Comment on above: Performed By: #### C BC #### [address] Leukocytes [#/volume] correc rj for nucleated erythrocytes in Blood by Automated counOrdered By: Mitchell Nelson on 07-01-2023 WBC corrected for nucl RBC Auto (Bld) [#/Vol] 3.7 10*3/uL Low 3.8-11.6 [facility] Leukocytes [#/volume] in Blo od by Automated countOrdered By: Mitchell Nelson on 07-01-2023 WBC (Bld) [#/Vol] 3.7 10*3/uL Low 3.8-11.6 [facility] Comment on above: Performed By: #### C BC #### [place] [address] [place] Lymphocytes [#/volume] in Bl ood by Automated countOrdered By: Mitchell Nelson on 07-01-2023 Lymphocytes (Bld) [#/Vol] 1.9 10*3/uL Normal 1.00-4.8 [facility] Comment on above: Performed By: #### C BC #### [address] Lymphocytes/100 leukocytes i n Blood by Automated countOrdered By: Mitchell Nelson on 07-01-2023 Lymphocytes/100 WBC (Bld) 52.4 % Normal . [facility] Comment on above: Performed By: #### C BC #### [address] MCH [Entitic mass] by Automa rj countOrdered By: Mitchell Nelson on 07-01-2023 MCH (RBC) [Entitic mass] 31.7 pg Normal 24.7-34.3 [facility] Comment on above: Performed By: #### C BC #### [address] MCHC Auto (RBC) [Mass/Vol]Or dered By: Mitchell Nelson on 07-01-2023 MCHC (RBC) [Mass/Vol] 34.4 g/dL 32.0-35.0 [facility] MCV [Entitic volume] by Auto mated countOrdered By: Mitchell Nelson on 07-01-2023 MCV (RBC) [Entitic vol] 92.0 fL Normal 80-100 [facility] Comment on above: Performed By: #### C BC #### [place] [address] [place] Neutrophils [#/volume] in Bl ood by Automated countOrdered By: Mitchell Nelson on 07-01-2023 Neutrophils (Bld) [#/Vol] 1.2 10*3/uL Low 1.8-7.7 [facility] Comment on above: Performed By: #### C BC #### [address] No Panel InformationOrdered By: Mitchell Nelson on 07-01-2023 Estimated GFR (CKD-EPI) > 60.0 mL/Min [facility] Creatinine Clearance (Chem N/A [facility] Nucleated erythrocytes [Pres ence] in Blood by Automated countOrdered By: Mitchell Nelson on 07-01-2023 Nucleated RBC Auto Ql (Bld) 0.1 /100{WBC} 0-0.5 [facility] Parathyrin.intact [Mass/volu me] in Serum or PlasmaOrdered By: Mitchell Nelson on 07-01-2023 Parathyrin.intact [Mass/Vol] 50.9 pg/mL [facility] Parathyroid Hormone Intacton 07-01-2023 Parathyroid Hormone Intact 50.9 pg/mL Normal [facility] Comment on above: Result Comment: PERF ORMED BY: [place] [address] PATHOLOGIST GM LINDA QUINN M.D. Performed By: #### P TH #### [address] Platelet mean volume [Entiti c volume] in Blood by Automated countOrdered By: Mitchell Nelson on 07-01-2023 Platelet mean volume (Bld) [Entitic vol] 7.3 fL Normal 6.3-10.7 [facility] Comment on above: Performed By: #### C BC #### [address] Platelets [#/volume] in Bloo d by Automated countOrdered By: Mitchell Nelson on 07-01-2023 Platelets (Bld) [#/Vol] 234 10*3/uL Normal 150-450 [facility] Comment on above: Performed By: #### C BC #### [address] [place] [address] [place] Potassium [Moles/volume] in Serum or PlasmaOrdered By: Mitchell Nelson on 07-01-2023 Potassium [Moles/Vol] 4.2 mmol/L Normal 3.5-5.1 [facility] Comment on above: Performed By: #### B MP, TSH3 #### [address] Serum or plasma anion gap de terminationOrdered By: Mitchell Nelson on 07-01-2023 Anion gap [Moles/Vol] 10.0 mmol/L Normal 6.0-15.0 [facility] Comment on above: Performed By: #### B MP, TSH3 #### [address] Sodium [Moles/volume] in Ser um or PlasmaOrdered By: Mitchell Nelson on 07-01-2023 Sodium [Moles/Vol] 135 mmol/L Low 136-145 [facility] Comment on above: Performed By: #### B MP, TSH3 #### [address] Thyrotropin [Units/volume] i n Serum or PlasmaOrdered By: Mitchell Nelson on 07-01-2023 TSH Qn 5.37 m[IU]/L High 0.45-5.33 [facility] Comment on above: Result Comment: PERF ORMED BY: [place] [address] PATHOLOGIST GM LINDA QUINN M.D. Performed By: #### B MP, TSH3 #### [address] Urea nitrogen [Mass/volume] in Serum or PlasmaOrdered By: Mitchell Nelson on 07-01-2023 Urea nitrogen [Mass/Vol] 10 mg/dL Normal 7-25 [facility] Comment on above: Performed By: #### B MP, TSH3 #### [address] Consent for Procedure/Surger yon 05-27-2023 Consent for Procedure/Surgery [id number] 7#1.00TIFF Normal [facility] Outside Recordson 05-27-2023 Outside Records [id number] 8#1.00TIFF Normal [facility] XR Chest 2 Viewson XR Chest [...] mGy = na DAP = na Normal [facility] BMPon 05-19-2023 Anion gap [Moles/Vol] 13 mmol/L Normal 6-16 [facility] Comment on above: Performed By: #### 1 [id number], [id number], [id number], [id number] #### [facility] [address] [place] [address] Calcium [Mass/Vol] 9.9 mg/dL Normal 8.9-11.1 [facility] Comment on above: Performed By: #### 1 [id number], [id number], [id number], [id number] #### [facility] [address] [place] [address] Chloride [Moles/Vol] 102 mmol/L Normal 101-111 [facility] Comment on above: Performed By: #### 1 [id number], [id number], [id number], [id number] #### [facility] [address] [place] [address] CO2 [Moles/Vol] 26 mmol/L Normal 21-31 [facility] Comment on above: Performed By: #### 1 [id number], [id number], [id number], [id number] #### [facility] [address] [place] [address] Creatinine [Mass/Vol] 0.6 mg/dL Normal 0.5-1.3 [facility] Comment on above: Performed By: #### 1 [id number], [id number], [id number], [id number] #### [facility] [address] [place] [address] Glucose [Mass/Vol] 80 mg/dL Normal 55-199 [facility] Comment on above: Performed By: #### 1 [id number], [id number], [id number], [id number] #### [facility] [address] [place] [address] Potassium [Moles/Vol] 3.9 mmol/L Normal 3.5-5.3 [facility] Comment on above: Performed By: #### 1 [id number], [id number], [id number], [id number] #### [facility] [address] [place] [address] Sodium [Moles/Vol] 137 mmol/L Normal 135-145 [facility] Comment on above: Performed By: #### 1 [id number], 8011468, [id number], [id number] #### [facility] [address] [place] [address] Urea nitrogen [Mass/Vol] 10 mg/dL Normal 5-21 [facility] Comment on above: Performed By: #### 1 [id number], [id number], [id number], [id number] #### [facility] [address] [place] [address] Urea nitrogen/Creatinine [Mass ratio] 17 No Units Normal 10-20 [facility] Comment on above: Performed By: #### 1 [id number], [id number], [id number], [id number] #### [facility] [address] [place] [address] CBC w/ Auto Diffon 4 Basophils/100 WBC (Bld) 0.6 % Normal 0.0-2.[address] [facility] Comment on above: Performed By: #### 2 [id number], [id number] #### [facility] [address] [place] [address] Basophils/Leukocytes Auto (Bld) [Pure # fraction] 0.0 E9/L Normal 0.0-0.2 [facility] Comment on above: Performed By: #### 2 [id number], [id number] #### [facility] [address] [place] [address] Eosinophils (Bld) [#/Vol] 0.1 E9/L Normal 0.0-0.5 [facility] Comment on above: Performed By: #### 2 352151, [id number] #### [facility] [address] [place] [address] Eosinophils/100 WBC (Bld) 2.6 % Normal 0.0-8.0 [facility] Comment on above: Performed By: #### 2 [id number], [id number] #### [facility] [address] [place] [address] Erythrocyte distribution width (RBC) [Ratio] 12.9 % Normal 10.9-14.2 [facility] Comment on above: Performed By: #### 2 [id number], [id number] #### [facility] [address] [place] [address] Hematocrit (Bld) [Volume fraction] 34.9 % Normal 34.0-46.0 [facility] Comment on above: Performed By: #### 2 626752, [id number] #### [facility] [address] [place] [address] Hemoglobin (Bld) [Mass/Vol] 11.8 g/dL Low 12.0-16.0 [facility] Comment on above: Performed By: #### 2 601053, [id number] #### [facility] [address] [place] [address] Lymphocytes (Bld) [#/Vol] 1.4 E9/L Normal 1.0-4.0 [facility] Comment on above: Performed By: #### 2 205729, [id number] #### [facility] [address] [place] [address] Lymphocytes/100 WBC (Bld) 40.0 % Normal 14.0-50.0 [facility] Comment on above: Performed By: #### 2 622426, [id number] #### [facility] [address] [place] [address] MCH (RBC) [Entitic mass] 31.5 pg Normal 27.0-34.0 [facility] Comment on above: Performed By: #### 2 532646, [id number] #### [facility] [address] [place] [address] MCHC (RBC) [Mass/Vol] 33.9 g/dL Normal 31.4-36.0 [facility] Comment on above: Performed By: #### 2 533103, [id number] #### [facility] [address] [place] [address] MCV (RBC) [Entitic vol] 92.9 fL Normal 80.0-100.0 [facility] Comment on above: Performed By: #### 2 835007, [id number] #### [facility] [address] [place] [address] Monocytes (Bld) [#/Vol] 0.3 E9/L Normal 0.2-1.0 [facility] Comment on above: Performed By: #### 2 352538, [id number] #### [facility] [address] [place] [address] Neutrophils (Bld) [#/Vol] 1.6 E9/L Low 2.0-7.5 [facility] Comment on above: Performed By: #### 2 859413, [id number] #### [facility] [address] [place] [address] Neutrophils/100 WBC (Bld) 46.8 % Normal 36.0-75.0 [facility] Comment on above: Performed By: #### 2 711052, [id number] #### [facility] [address] [place] [address] Platelet mean volume (Bld) [Entitic vol] 7.7 fL Normal 6.4-10.8 [facility] Comment on above: Performed By: #### 2 699073, [id number] #### [facility] [address] [place] [address] Platelets (Bld) [#/Vol] 240.0 E9/L Normal 150.0-500.0 [facility] Comment on above: Performed By: #### 2 707154, [id number] #### [facility] [address] [place] [address] RBC (Bld) [#/Vol] 3.8 E12/L Low 4.3-5.9 [facility] Comment on above: Performed By: #### 2 617323, [id number] #### [facility] [address] [place] [address] WBC corrected for nucl RBC Auto (Bld) [#/Vol] 3.4 E9/L Low 4.0-11.0 [facility] Comment on above: Performed By: #### 2 344679, [id number] #### [facility] [address] [place] [address] CHEMISTRYOrdered By: SYSTEM SYSTEM on 05-19-2023 Anion [...] 33.6 s Normal 25.1 - 36.5 second(s) [facility] Comment on above: Interpretive Data: [...] the same coagulation reagent and instrumentation as [facility]. Currently there are no coagulation studies available worldwide for children to 14 days, and no normal ranges. Heparin therapeutic range (represented by Anti-Factor Xa activity of 0.2 - 0.4 U/mL) corresponds to PTT of 56.6 - 109.0 sec. INR Coag (PPP) [Relative time] 0.98 {INR} Invalid Interpretation Code [facility] Comment on above: Interpretive Data: I NR results are specifically intended to assess patients stabilized on long-term Anticoagulation therapy suggested INR s Less Intensive Anticoagulation 2.0 3.0 Conventional Range 3.0 4.5 PT Coag (PPP) [Time] 11.0 s Normal 9.4 - 1 2.5 second(s) [facility] Comment on above: Interpretive Data: [...] the same coagulation reagent and instrumentation as [facility]. Currently there are no coagulation studies available worldwide for children to 14 days, and no normal ranges. Consent for Treatmenton Consent for Treatment [id number] #[id number] Normal [facility] HEMATOLOGYOrdered By: SYSTEM SYSTEM on 05-19-2023 [...] 05-19-2023 Magnesium [Mass/Vol] 2.1 mg/dL Normal 1.3-2.4 [facility] Comment on above: Performed By: #### 1 [id number], [id number], 9614546, [id number] #### [facility] [address] [place] [address] PT & PTTon 05-19-2023 aPTT Coag (PPP) [Time] 33.6 second(s) Normal 25.1-36.5 [facility] Comment on above: Result Comment: Para [...] the same coagulation reagent and instrumentation as [facility]. Currently there are no coagulation studies available worldwide for children to 14 days, and no normal ranges. Heparin therapeutic range (represented by Anti-Factor Xa activity of 0.2 - 0.4 U/mL) corresponds to PTT of 56.6 - 109.0 sec. Performed By: #### 2 [id number], [id number] #### [facility] [address] [place] [address] INR Coag (PPP) [Relative time] 0.98 {INR} Invalid Interpretation Code [facility] Comment on above: Result Comment: INR results are specifically intended to assess patients stabilized on long-term Anticoagulation therapy suggested INR?s ?Less Intensive Anticoagulation? 2.0 ? 3.0 Conventional Range 3.0 ? 4.5 Performed By: #### 2 [id number], [id number] #### [facility] [address] [place] [address] PT Coag (PPP) [Time] 11.0 second(s) Normal 9.4-12.5 [facility] Comment on above: Result Comment: 15 [...] the same coagulation reagent and instrumentation as [facility]. Currently there are no coagulation studies available worldwide for children to 14 days, and no normal ranges. Performed By: #### 2 [id number], [id number] #### [facility] [address] [place] [address] Phosphoruson 05-19-2023 Phosphate [Mass/Vol] 3.7 mg/dL Normal 1.9-4.6 [facility] Comment on above: Performed By: #### 1 [id number], [id number], [id number], [id number] #### [facility] [address] [place] [address] eGFRon 05-19-2023 eGFR 100 mL/min/1.73 m2 Normal >=59 [facility] Comment on above: Order Comment: Order added by Discern Expert. Performed By: #### 1 [id number], [id number], [id number], [id number] #### [facility] [address] [place] [address] MG MAMM SCREEN 3D KELLEY CADon 12-24-2021 MG MAMM SCREEN 3D KELLEY CAD Patient: JUAN ANTONIO BACA Exam Date: 12/24/2021 : 1960 Gender:F Ordering : DR TIMOTHY DOMINGUEZ M.D. Admission #: [id number] Family : Order #: [id number] CLICK HERE TO VIEW EXAM RADIOLOGY REPORT [...] Family Cancers None LOCATION: [facility] BREAST COMPOSITION: Extremely dense, which lowers the [...] Addison MD on 12/24/2021 at 10:32 Normal [facility] Vital Signs Date Time Vital Sign Value Performing Clinician Facility 03-28-2024 08:42-0500 Body height 170.2 cm Brock Edmond DPM Work Phone: [facility] 03-28-2024 08:42-0500 Body mass index (BMI) [Ratio] 22.55 kg/m2 Brock Edmond DPM Work Phone: [facility] 03-28-2024 08:42-0500 Body weight 65.32 kg Brock Edmond DPM Work Phone: [facility] 01-25-2024 10:07-0500 Body height 170.2 cm Brock Edmond DPM Work Phone: [facility] 01-25-2024 10:07-0500 Body mass index (BMI) [Ratio] 22.55 kg/m2 Brock Edmond DPM Work Phone: [facility] 01-25-2024 10:07-0500 Body weight 65.32 kg Brock Edmond DPM Work Phone: [facility] 12-09-2023 11:19-0400 Body height 170.2 cm Eric Armenta MD Work Phone: [facility] 12-09-2023 11:19-0400 Body mass index (BMI) [Ratio] 22.55 kg/m2 Eric Armenta MD Work Phone: [facility] 12-09-2023 11:19-0400 Body weight 65.32 kg Eric Armenta MD Work Phone: [facility] 12-09-2023 11:19-0400 Heart rate 72 /min Eric Armenta MD Work Phone: [facility] Comment on above: O2 SAT 99% 12-09-2023 11:19-0400 Respiratory rate 16 /min Eric Armenta MD Work Phone: [facility] 10-26-2023 11:08-0400 Body height 170.2 cm Timothy Dominguez MD Work Phone: [facility] 10-26-2023 11:08-0400 Body mass index (BMI) [Ratio] 22.55 kg/m2 Timothy Dominguez MD Work Phone: [facility] 10-26-2023 11:08-0400 Body weight 65.32 kg Timothy Dominguez MD Work Phone: [facility] 10-26-2023 11:08-0400 Diastolic blood pressure 68 mm[Hg] Timothy Dominguez MD Work Phone: [facility] 10-26-2023 11:08-0400 Heart rate 68 /min Timothy Dominguez MD Work Phone: [facility] 10-26-2023 11:08-0400 SaO2% (BldA) [Mass fraction] 100 % Timothy Dominguez MD Work Phone: [facility] 10-26-2023 11:08-0400 Systolic blood pressure 124 mm[Hg] Timothy Dominguez MD Work Phone: [facility] 07-15-2023 14:40-0400 Diastolic blood pressure 75 mm[Hg] MD Timothy Dominguez Work Phone: [facility] 07-15-2023 14:40-0400 Heart rate 88 /min MD Timothy Dominguez Work Phone: [facility] 07-15-2023 14:40-0400 Respiratory rate 16 /min MD Timothy Dominguez Work Phone: [facility] 07-15-2023 14:40-0400 SaO2% (BldA) [Mass fraction] 100 % MD Timothy Dominguez Work Phone: [facility] 07-15-2023 14:40-0400 Systolic blood pressure 146 mm[Hg] MD Timothy Dominguez Work Phone: [facility] 07-15-2023 14:31-0400 Body temperature 98 [degF] MD Timothy Dominguez Work Phone: [facility] 07-15-2023 14:06-0400 Inhaled oxygen flow rate 8 L/min MD Timothy Dominguez Work Phone: [facility] 07-15-2023 13:21-0400 Body height 170.18 cm MD Timothy Dominguez Work Phone: [facility] 07-15-2023 13:21-0400 Body weight 61.23 kg MD Timothy Dominguez Work Phone: [facility] 07-15-2023 11:04-0400 Diastolic blood pressure 79 mm[Hg] MD Timothy Dominguez Work Phone: [facility] 07-15-2023 11:04-0400 Heart rate 85 /min MD Timothy Dominguez Work Phone: [facility] 07-15-2023 11:04-0400 Respiratory rate 14 /min MD Timothy Dominguez Work Phone: [facility] 07-15-2023 11:04-0400 SaO2% (BldA) [Mass fraction] 100 % MD Timothy Dominguez Work Phone: [facility] 07-15-2023 11:04-0400 Systolic blood pressure 146 mm[Hg] MD Timothy Dominguez Work Phone: [facility] 07-15-2023 10:17-0400 Body temperature 97 [degF] MD Timothy Dominguez Work Phone: [facility] 07-15-2023 09:52-0400 Inhaled oxygen flow rate 8 L/min MD Timothy Dominguez Work Phone: [facility] 07-15-2023 07:58-0400 Body height 170.18 cm MD Timothy Dominguez Work Phone: [facility] 07-15-2023 07:58-0400 Body mass index (BMI) [Ratio] 22.8 kg/m2 MD Timothy Dominguez Work Phone: [facility] 07-15-2023 07:58-0400 Body weight 66 kg MD Timothy Dominguez Work Phone: [facility] 05-19-2023 07:38-0400 Blood Pressure Location Cecy Timmis [facility] 05-19-2023 07:38-0400 Diastolic blood pressure 75 mm[Hg] Cecy Timmis [facility] 05-19-2023 07:38-0400 Heart rate 54 /min Cecy Timmis [facility] 05-19-2023 07:38-0400 Mean blood pressure 101 mm[Hg] Cecy Timmis [facility] 05-19-2023 07:38-0400 Systolic blood pressure 151 mm[Hg] Cecy Timmis [facility] 05-19-2023 07:37-0400 Heart rate 56 /min Cecy Timmis [facility] 05-19-2023 07:37-0400 SaO2% (BldA) [Mass fraction] 100 % Cecy Timmis [facility] 05-19-2023 07:37-0400 Respiratory rate 16 /min Cecy Timmis [facility] 05-19-2023 07:37-0400 Body temperature 98.24 [degF] Cecy Timmis [facility] 05-19-2023 07:37-0400 Blood Pressure Location Cecy Timmis [facility] 05-19-2023 07:37-0400 Diastolic blood pressure 73 mm[Hg] Cecy Mercers [facility] 05-19-2023 07:37-0400 Mean blood pressure 99 mm[Hg] Cecy Moncadamis [facility] 05-19-2023 07:37-0400 Systolic blood pressure 151 mm[Hg] Cecy Hadley [facility] Encounters Encounter Date Encounter Type Care Provider Facility Start: 04-24-2024 End: 04-24-2024 ambulatory TIMOTHY DOMINGUEZ Not Available Start: 03-28-2024 End: 03-28-2024 Bamboo flowsheet Brock Edmond DPM Work Phone: [facility] Start: 03-28-2024 End: 03-28-2024 Bamboo flowsheet Brock Edmond DPM Work Phone: [facility] Start: 03-28-2024 End: 03-28-2024 Office outpatient visit 15 minutes Brock Edmond DPM Work Phone: [facility] Comment on above: Nail dystrophy (Prim jose Dx); Pain of right great toe; Hallux valgus of left foot; Callus Start: 03-28-2024 End: 03-28-2024 ambulatory BROCK EDMOND Not Available Start: 01-25-2024 End: 01-25-2024 Bamboo flowsheet Brock Edmond DPM Work Phone: [facility] Start: 01-25-2024 End: 01-25-2024 Bamboo flowsheet Brock Edmond DPM Work Phone: [facility] Start: 01-25-2024 End: 01-25-2024 Office outpatient new 45 minutes Brock Edmond DPM Work Phone: [facility] Comment on above: Hallux valgus of lef t foot (Primary Dx); Bunion, left foot; Callus; Porokeratosis; Pain in both feet Start: 01-25-2024 End: 01-25-2024 ambulatory BROCK Jeff EDMOND Not Available Start: 12-09-2023 End: 12-09-2023 Bamboo flowsheet Eric Armenta MD Work Phone: [facility] Start: 12-09-2023 End: 12-09-2023 Bamboo flowsheet Eric Armenta MD Work Phone: [facility] Start: 12-09-2023 End: 12-09-2023 Office outpatient visit 25 minutes Eric Armenta MD Work Phone: [facility] Comment on above: Postoperative hypoth yroidism (CMS/HCC) (Primary Dx); Vitamin D deficiency Start: 12-09-2023 End: 12-09-2023 ambulatory ERIC ARMENTA Not Available Start: 12-03-2023 End: 12-03-2023 Clinisync Result Encounter Generic External Data Provider [facility] External Department Unsolicited Start: 12-03-2023 End: 12-03-2023 Clinisync Result Encounter Generic External Data Provider [facility] External Department Unsolicited Start: 10-26-2023 End: 10-26-2023 Office outpatient visit 25 minutes Timothy Dominguez MD Work Phone: [facility] Comment on above: Hypoglycemia (Primar y Dx); Hypercholesteremia (CMS/HCC) Start: 10-26-2023 End: 10-26-2023 ambulatory TIMOTHY DOMINGUEZ Not Available Start: 08-24-2023 End: 08-24-2023 ambulatory MITCHELL NELSON Not Available Start: 08-16-2023 End: 08-16-2023 Patient encounter procedure MD Timothy Dominguez Work Phone: [facility] [place] Work Phone: Start: 08-16-2023 End: 08-16-2023 ambulatory MD Timothy Dominguez Work Phone: [facility] Work Phone: Start: 07-21-2023 End: 07-21-2023 ambulatory MITCHELL NELSON Not Available Start: 07-16-2023 End: 07-16-2023 ambulatory MITCHELL NELSON Not Available Start: 07-15-2023 End: 07-15-2023 Admission to same day surgery center MD Timothy Dominguez Work Phone: [facility] [place] Start: 07-15-2023 End: 07-15-2023 ambulatory MD Timothy Dominguez Work Phone: [facility] Work Phone: Start: 07-01-2023 End: 07-01-2023 Patient encounter procedure MD Timothy Dominguez Work Phone: [facility] Work Phone: Start: 07-01-2023 End: 07-01-2023 ambulatory MD Timothy Dominguez Work Phone: [facility] Work Phone: Start: 07-01-2023 Encounter for preprocedural laboratory examination Mitchell Nelson [facility] Start: 06-28-2023 End: 06-28-2023 ambulatory MITCHELL NELSON Not Available Start: 05-19-2023 End: 05-20-2023 ambulatory Cecy Hadley Facility[facility] Start: 05-19-2023 End: 05-19-2023 Patient encounter procedure Cecy Hadley [facility] Start: 05-10-2023 End: 05-10-2023 ambulatory TIMOTHY DOMINGUEZ Not Available Start: 04-19-2023 End: 06-11-2023 Pre-admission assessment Cecy Hadley [facility] Start: 12-24-2021 End: 11-10-[address] TIMOTHY DOMINGUEZ Facility:[facility]1 Procedures Date Procedure Procedure Detail Performing Clinician Start: 01-25-2024 Radex foot complete minimum 3 views Brock Edmond DPM Work Phone: Start: 01-05-2024 Mammography Brock Harrison leora DPM Work Phone: Start: 12-03-2023 ALL T3 FREE Generic Ex ternal Data Provider Start: 12-03-2023 ALL THYROID STIM HORMONE Generic External Data Provider Start: 12-03-2023 ALL THYROXINE (T4) FREE Generic External Data Provider Start: 07-15-2023 End: 07-15-2023 Lobectomy of thyroid gland MD Timothy Dominguez Work Phone: Start: 12-30-2022 Mammography Timothy Dominguez MD Work Phone: Ligation of fallopian tube H ilary Timmis Removal of ovarian cyst Courtney ry Timmis Plan of Treatment Date Care Activity Detail Author Start: 05-27-2026 Screening for malignant neoplasm of colon [facility] Start: 01-04-2025 Screening for malignant neoplasm of breast Mammogram [facility] Start: 10-16-2024 Influenza vaccination Influenza Vaccine (#1) [facility] Comment on above: Postponed from 10/17/2023 (Other Medical Reasons) Start: 06-08-2024 End: 06-08-2024 Patient encounter procedure 06/08/2024 9:40 AM EDT Office Visit [facility] [address] [place] [address] Eric Armenta MD [address] [place] [address] [facility] Start: 04-24-2024 End: 04-24-2024 Patient encounter procedure 04/24/2024 8:00 AM EDT Office Visit [facility] [address] [place] [id number] Timothy Dominguez MD [address] [place], [place] [id number] [facility] Start: 03-28-2024 End: 03-28-2024 Patient encounter procedure [facility] Comment on above: Arrived Start: 01-25-2024 End: 01-25-2024 Patient encounter procedure 01/25/2024 10:15 AM EST Office Visit [facility] [address] [place] [id number] Brock Edmond, DPM [address] [place], [place] [id number] Arrived [facility] Comment on above: Arrived Start: 12-31-2023 Screening for malignant neoplasm of breast Mammogram [facility] Start: 12-09-2023 End: 12-08-2024 Thyrotropin [Units/volume] in Serum or Plasma TSH Lab Routine Postoperative hypothyroidism (CMS/HCC) Expected: 12/09/2023 (Approximate), Expires: 12/08/2024 [facility] Comment on above: Expected: 12/09/2023 (Approximate), Expi res: 12/08/2024 Start: 12-09-2023 End: 12-08-2024 Thyroxine (T4) free [Mass/volume] in Serum or Plasma T4, free Lab Routine Postoperative hypothyroidism (CMS/HCC) Expected: 12/09/2023 (Approximate), Expires: 12/08/2024 [facility] Comment on above: Expected: 12/09/2023 (Approximate), Expi res: 12/08/2024 Start: 12-09-2023 End: 12-08-2024 Triiodothyronine (T3) Free [Mass/volume] in Serum or Plasma T3, free Lab Routine Postoperative hypothyroidism (CMS/HCC) Expected: 12/09/2023 (Approximate), Expires: 12/08/2024 [facility] Work Phone: Comment on above: Expected: 12/09/2023 (Approximate), Expi res: 12/08/2024 Start: 12-09-2023 End: 12-09-2023 Patient encounter procedure [facility] Comment on above: Arrived Start: 09-23-2023 Pneumococcal Vaccine: 65+ Years (1 of 1 - PCV) Pneumococcal Vaccine: 65+ Years (1 of 1 - PCV) [facility] Start: 07-15-2023 End: 07-15-2023 [facility] Start: 07-15-2023 [facility] Start: 07-15-2023 [facility] Start: 1988 Screening for malignant neoplasm of cervix [facility] Start: 09-23-1979 Screening for malignant neoplasm of cervix Pap Smear [facility] Start: 1960 Screening for malignant neoplasm of colon [facility] Patient Education Know your Meds [facility] Work Phone: Patient referral [facility] Work Phone: Immunizations Immunization Date Immunization Notes Care Provider Fa cility 06-17-2020 COVID-19 Bernice Ramos (Pfizer) MD Timothy Dominguez Work Phone: [facility] 05-27-2020 COVID-19 Bernice Ramos (Pfizer) MD Timothy Dominguez Work Phone: [facility] 07-06-2012 diphtheria, tetanus toxoids and pertussis vaccine Timothy Dominguez MD Work Phone: [facility] Payers Date Payer Category Payer Self-pay 2019 Private Health Insurance [id number] 1961 Unknown [id number] 1960 Unknown [id number] 2.16.84 [id number] 1960 Unknown [id number] [id number] 1960 Unknown [id number] 2.16.84 [id number] 1960 Unknown [id number] 2.16.84 [id number] 1960 Unknown [id number] 2.16.84 [id number] 1960 Unknown [id number] 2.16.84 [id number] 1960 Unknown [id number] 2.16.84 [id number] 1960 Unknown [id number] 2.16.84 [id number] 1960 Unknown [id number] 2.16.84 [id number] 1960 Unknown [id number] 2.16.84 [id number] 1960 Unknown [id number] 2.16.84 [id number] 1960 Unknown [id number] 2.16.84 [id number] 1960 Unknown [id number] 2.16.84 [id number] Unknown [id number] 2.16.8 [id number] Unknown [id number] 2.16.8 [id number] Unknown [id number] 2.16.8 [id number] Unknown [id number] 2.16.8 [id number] Social History Date Type Detail Facility Tobacco smoking status [facility] Start: 07-15-2022 End: 10-25-2023 Sex Assigned At Female [facility] Start: 07-01-2023 End: 08-24-2023 Tobacco smoking status TNIS Ex-smoker (finding) [facility] Start: 1960 Sex Assigned At Female [facility] History of tobacco use Current smoker [facility] History of tobacco use Cigarette Smoker [facility] Start: 08-24-2023 End: 10-25-2023 Cigarettes smoked current (pack per day) - Reported 0.3 [facility] Start: 08-24-2023 Tobacco use and exposure Smokeless tobacco non-user [facility] Start: 11-23-2023 End: 03-28-2024 Alcoholic beverage intake Ex-drinker (finding) [facility] [...] Assessment Result Facility 05-19-2023 Functional Status No [facility] Clinical Notes 05-27-2023 to 03-28-2024 Brock Edmond DPM - 03/28/2024 8:45 AM Donte Edmond DPM - 01/25/2024 10:15 AM Roberto Armenta MD - 12/09/2023 11:00 AM Ivan Dominguez MD - 10/26/2023 11:20 AM EDT Note Date & Type Note Facility 03-28-2024 History of Present illness Narrative Images from the original note were not included. Subjective Patient ID: Juan Antonio Baca is a 63 y.o. female who presents for Follow-up (Established pt presents today for 2 month fuv for bunion and callus. Pt relates these issues are resolved at this time, pt states she kept appt because she has been having pain with RGT, possibly an ingrown nail. Pt states pain has been waking her up at night, ongoing for a couple weeks. Denies infection. SS: 8-8.5). HPI Established patient returns for follow up left bunion pain and bilateral callus pain. She states the tennis shoes and inserts are working well. She is keeping good control over the callus regrowth on both feet. She has not having pain in those areas today in his pleased with her progress. She states the right medial hallux nail has been painful for many weeks. She denies any redness or drainage. But the area is tender when it is bumped. She has never had an ingrown nail previously. Review of Systems Medications Current Outpatient Medications: atorvastatin (Lipitor) 20 MG tablet, Take 1 tablet (20 mg) by mouth Daily, Disp: 100 tablet, Rfl: 3 Calcium Carbonate (CALCI-CHEW PO), , Disp: , Rfl: glucosamine-chondroitin 500-400 MG tablet, Take 1 tablet by mouth Daily, Disp: , Rfl: levothyroxine (Synthroid, Levoxyl) 112 MCG tablet, TAKE 1 TABLET BY MOUTH DAILY, Disp: 90 tablet, Rfl: 1 magnesium 250 MG tablet, 1 (one) time each day at the same time., Disp: , Rfl: metoprolol succinate XL (Toprol-XL) 25 MG 24 hr tablet, Take 25 mg by mouth Daily, Disp: , Rfl: Multiple Vitamin (Multivitamin Adult) tablet, Orally, Disp: , Rfl: olmesartan (BENIcar) 20 MG tablet, TAKE 1 TABLET BY MOUTH EVERY DAY IN THE MORNING, Disp: 100 tablet, Rfl: 3 omega-3 (Fish Oil) 500 MG capsule, 1 capsule every 12 (twelve) hours., Disp: , Rfl: Allergies Patient has no known allergies. Past Surgical History Past Surgical History: Procedure Laterality Date COLONOSCOPY 2009 normal CYST REMOVAL 2011 Procedure:benign paratubal cyst fallopian;Disease: DEXA BONE DENSITY 2013 ENDOMETRIAL BIOPSY 2012 FNA W IMAGING GUIDANCE 01/12/2023 thyroid NECK SURGERY 07/15/2023 Exploration with control of cervical hematoma OTHER SURGICAL HISTORY 2013 mammogram PAP SMEAR 03/01/2012 PELVIC LAPAROSCOPY 2011 laparoscopy-operative TOTAL THYROIDECTOMY 07/15/2023 TUBAL LIGATION Bilateral 1988 Family History Family History Problem Relation Name Age of Onset Hypertension Mother Evelia Raymundo Arthritis Mother Evelia Raymundo Dementia Mother Evelia Raymundo Heart disease Father Willy Rios Diabetes Father Willy Rios Hypertension Father Willy Rios Hearing loss Father Willy Rios Long QT syndrome Sister Early natural Sister Guerda Vital No Known Problems Brother No Known Problems Daughter No Known Problems Son Objective Physical Exam Constitutional: Appearance: Normal appearance. HENT: Head: Normocephalic and atraumatic. Cardiovascular: Comments: Pedal pulses: DP 2/4 bilateral, PT 2/4 bilateral. Skin temp is warm to warm. Varicosities: absent, Telangiectasias present Hair growth: present Pulmonary: Effort: Pulmonary effort is normal. Musculoskeletal: Right lower leg: No edema. Left lower leg: No edema. Comments: ROM: AJ and STJ ROM are normal and pain free. MUSCLE STRENGTH: Dorsiflexion, plantarflexion, inversion, eversion are 5/5 b/l. PAIN: R medial hallux nail DEFORMITY: HAV deformity is noted on the left. Large medial prominence of 1st met head, with lateral deviation of great toe. Great toe impinges on the 2nd toe and the 2nd toe is contracted at the MPJ and the PIPJ. Deformities are not able to be fully reduced. Slightly limited motion at the MPJ. Skin: General: Skin is warm and dry. Capillary Refill: Capillary refill takes 2 to 3 seconds. Findings: No bruising or erythema. Comments: SKIN FINDINGS: Webspaces are clean and dry. Skin texture and turgor normal HYPERKERATOTIC LESION: mild callous lesions noted left foot plantar medial hallux IPJ, 1st and PIPJ, directly overlying the medial 1st metatarsal head. Right foot there are porokeratosis/IPK noted sub 2nd metatarsal head, sub 5th metatarsal head x2, and dorsal lateral right 5th digit NAILS: right medial hallux nail is incurvated and creating pain and pressure at medial nail fold. The medial nail fold overlies the medial border of the R hallux nail and is callused thicker tissue. There is no erythema or drainage noted. There is no break through the skin Neurological: Mental Status: She is alert and oriented to person, place, and time. Comments: Light touch sensation intact Assessment/Plan ICD-10-CM 1. Nail dystrophy L60.3 2. Pain of right great toe M79.674 3. Hallux valgus of left foot M20.12 4. Callus L84 Patient was examined and evaluated. She is doing well regarding the bunions and calluses. I recommended she continue with the urea cream and pumice stone for the callus areas. Recommended continuing supportive shoe gear along with inserts. Reviewed that pressure from ambulation is causing medial nail fold to come up and over the medial nail border, this increases pressure at hallux nail border. There is no evidence of ingrown nail, but this could progress into this. Gave pt the options of nail procedures vs conservative care of tissue massage and taping nail fold away from nail plate and soaking in Epsom salts. Pt would like to start with soaking and taping/massage of nail fold. If no improvement, they understand a nail procedure would then be recommended. She would like to call as needed for her next appointment. This note was created with the assistance of a speech recognition program. While intending to generate a timely document that accurately reflects the content of the visit, no guarantee can be provided that every grammatical or spelling mistake has been or will be identified or corrected. Thank you for your understanding. Brock Edmond DPM documented in this encounter [facility] 01-25-2024 History of Present illness Narrative Images from the original note were not included. Subjective Patient ID: Juan Antonio Baca is a 63 y.o. 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 No recent xrays, no txts tried. Also relates bumps on the right foot, painful with pressure. SS: 8-8.5). HPI Patient presents for the 1st time complaining of bilateral foot pain that has been present for 3-4 months. She states the left foot is worse than the right. She has noticed the bunion present on her left foot for years but it has just become painful in the last few months. She sometimes has redness around the area. She has noted that some shoes are very uncomfortable for her. She typically wears her [employer] tennis shoes. She states the right foot is painful at the ball of the foot, where she has noticed some calluses Review of Systems Medications Current Outpatient Medications: atorvastatin (Lipitor) 20 MG tablet, Take 1 tablet (20 mg) by mouth Daily, Disp: 100 tablet, Rfl: 3 Calcium Carbonate (CALCI-CHEW PO), , Disp: , Rfl: glucosamine-chondroitin 500-400 MG tablet, Take 1 tablet by mouth Daily, Disp: , Rfl: levothyroxine (Synthroid, Levoxyl) 112 MCG tablet, Take 1 tablet (112 mcg) by mouth Daily, Disp: 90 tablet, Rfl: 1 magnesium 250 MG tablet, 1 (one) time each day at the same time., Disp: , Rfl: Multiple Vitamin (Multivitamin Adult) tablet, Orally, Disp: , Rfl: olmesartan (BENIcar) 20 MG tablet, TAKE 1 TABLET BY MOUTH EVERY DAY IN THE MORNING, Disp: 100 tablet, Rfl: 3 omega-3 (Fish Oil) 500 MG capsule, 1 capsule every 12 (twelve) hours., Disp: , Rfl: metoprolol succinate XL (Toprol-XL) 25 MG 24 hr tablet, Take 25 mg by mouth Daily (Patient not taking: Reported on 01/25/2024), Disp: , Rfl: Allergies Patient has no known allergies. Past Surgical History Past Surgical History: Procedure Laterality Date COLONOSCOPY 2009 normal CYST REMOVAL 2011 Procedure:benign paratubal cyst fallopian;Disease: DEXA BONE DENSITY 2013 ENDOMETRIAL BIOPSY 2012 FNA W IMAGING GUIDANCE 01/12/2023 thyroid NECK SURGERY 07/15/2023 Exploration with control of cervical hematoma OTHER SURGICAL HISTORY 2013 mammogram PAP SMEAR 03/01/2012 PELVIC LAPAROSCOPY 2012 laparoscopy-operative TOTAL THYROIDECTOMY 07/15/2023 TUBAL LIGATION Bilateral 1988 Family History Family History Problem Relation Name Age of Onset Hypertension Mother Evelia Zackary Arthritis Mother Evelia Raymundo Dementia Mother Evelia Raymundo Heart disease Father Willy Rios Diabetes Father Willy Rios Hypertension Father Willy Rios Hearing loss Father Willy Rios Long QT syndrome Sister Early natural Sister Guerda Vital No Known Problems Brother No Known Problems Daughter No Known Problems Son Objective Physical Exam Constitutional: Appearance: Normal appearance. HENT: Head: Normocephalic and atraumatic. Cardiovascular: Comments: Pedal pulses: DP 2/4 bilateral, PT 2/4 bilateral. Skin temp is warm to warm. Varicosities: absent, Telangiectasias present Hair growth: present Pulmonary: Effort: Pulmonary effort is normal. Musculoskeletal: Right lower leg: No edema. Left lower leg: No edema. Comments: ROM: AJ and STJ ROM are normal and pain free. MUSCLE STRENGTH: Dorsiflexion, plantarflexion, inversion, eversion are 5/5 b/l. PAIN: there is pain with palpation at the medial 1st metatarsal head at the area of the bunion. There is no significant discomfort with range motion of the left 1st MTPJ. There is pain with palpation sub 2nd and 5th met head right foot correlating to the porokeratosis/ IPK. DEFORMITY: HAV deformity is noted on the left. Large medial prominence of 1st met head, with lateral deviation of great toe. Great toe impinges on the 2nd toe and the 2nd toe is contracted at the MPJ and the PIPJ. Deformities are not able to be fully reduced. Pain over the 1st Met head especially with shoes. Slightly limited motion at the MPJ. AJ and STJ motion WNL bilateral Skin: General: Skin is warm and dry. Capillary Refill: Capillary refill takes 2 to 3 seconds. Findings: No bruising or erythema. Comments: SKIN FINDINGS: Webspaces are clean and dry. Skin texture and turgor normal HYPERKERATOTIC LESION: mild callous lesions noted left foot plantar medial hallux IPJ, 1st and PIPJ, directly overlying the medial 1st metatarsal head. Right foot there are porokeratosis/IPK noted sub 2nd metatarsal head, sub 5th metatarsal head x2, and dorsal lateral right 5th digit Neurological: Mental Status: She is alert and oriented to person, place, and time. Comments: Light touch sensation intact XR foot 3+ views left Imaging Result: 3 views foot: AP, MO, and lateral of the left foot were taken and show no fractures or dislocations. There is increase in IM 1-2 angle with 1st met head prominent medially and lateral deviation of the hallux, causing incongruency at 1st MTPJ. There is valgus rotation of the 1st metatarsal, the tibial sesamoid position is 6. Some cystic changes noted in 1st met head on MO view. Moderate joint space loss At 1st MTPJ Assessment/Plan ICD-10-CM 1. Hallux valgus of left foot M20.12 XR foot 3+ views left 2. Bunion, left foot M21.612 XR foot 3+ views left 3. Callus L84 4. Porokeratosis Q82.8 5. Pain in both feet M79.671 M79.672 Patient was examined and evaluated. Discussed diagnosis and etiology of IPK/porokeratosis with the pt. They were debrided by me with #15 blade. Care was taken to remove the deep nucleated core of the lesions. Explained the role of supportive shoes. Avoid barefeet. Recommended use of urea cream twice a day at callused areas. Then, use pumice stone after showering. Discussed the role of power step inserts and these could then be offloaded in the future if needed. Patient had tried a pair of power steps on it felt these were comfortable. These were dispensed to her. Break-in period reviewed. Patient will start with urea cream, pumice stone, inserts and will return in 2 months if needed for follow-up. 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 Reviewed that nothing conservatively will make the bunion resolve, but occasionally conservative care can render pt's asymptomatic. Discuss appropriate shoe gear, wearing shoes with wider toe box and more forgiving fabric. Patient also has callus directly overlying the 1st metatarsal head. This was debrided. She can use the urea cream and pumice stone this area as well which should help the discomfort. Recommended [id number] Voltaren gel for her to use over the painful bunion. Briefly discussed surgical correction today. Pt is happy to try conservative measures. This note was created with the assistance of a speech recognition program. While intending to generate a timely document that accurately reflects the content of the visit, no guarantee can be provided that every grammatical or spelling mistake has been or will be identified or corrected. Thank you for your understanding. Brock Edmond DPM documented in this encounter [facility] 12-09-2023 History of Present illness Narrative Juan Antonio Baca is a [...] 11/2022 New patient sent from Dr. Cecy Hadley for hyperthyroidism and multinodular goiter. Labs done [...] so recommended FNA. She is following Dr. Hadley. No biopsy done. He plans to do [...] control of cervical hematoma OTHER SURGICAL HISTORY 2013 mammogram PAP SMEAR 03/01/2012 PELVIC LAPAROSCOPY 2011 [...] months (around 06/08/2024). documented in this encounter [facility] 10-26-2023 History of Present illness Narrative Associated Problem(s): Hypoglycemia Father with Diabetes One episode sweaty and dizzy Images from the original note were not included. Subjective Patient ID: Juan Antonio Baca is a 63 y.o. female who presents for Hypertension. Pt states her BP is still running high, will take BP at home 150 over 80 or 90 Hypertension This is a chronic problem. The current episode started more than 1 year ago. The problem is unchanged. The problem is uncontrolled. Associated symptoms include headaches. Pertinent negatives include no chest pain, palpitations or shortness of breath. There are no associated agents to hypertension. There are no known risk factors for coronary artery disease. Past treatments include beta blockers and angiotensin blockers. The current treatment provides moderate improvement. There are no compliance problems. There is no history of angina, kidney disease, CVA or PVD. Current Outpatient Medications on File Prior to Visit Medication Sig Dispense Refill metoprolol succinate XL (Toprol-XL) 25 MG 24 hr tablet Take 25 mg by mouth Daily Calcium Carbonate (CALCI-CHEW PO) levothyroxine (Synthroid, Levoxyl) 125 MCG tablet Take 125 mcg by mouth in the morning. Take before meals. magnesium 250 MG tablet 1 (one) time each day at the same time. Multiple Vitamin (Multivitamin Adult) tablet Orally olmesartan (BENIcar) 20 MG tablet TAKE 1 TABLET BY MOUTH EVERY DAY IN THE MORNING 100 tablet 3 omega-3 (Fish Oil) 500 MG capsule 1 capsule every 12 (twelve) hours. [DISCONTINUED] atorvastatin (Lipitor) 20 MG tablet TAKE 1 TABLET BY MOUTH EVERY DAY 90 tablet 1 No current facility-administered medications on file prior to visit. I have reviewed and reconciled the history and medication list with the patient today. No Known Allergies Social History Tobacco Use Smoking status: Former Current packs/day: 0.25 Average packs/day: 0.3 packs/day for 4.0 years (1.0 ttl pk-yrs) Types: Cigarettes Smokeless tobacco: Never Substance Use Topics Alcohol use: Not Currently Comment: Occasional social drinks Drug use: Never Family History Problem Relation Name Age of Onset Hypertension Mother Evelia Raymundo Arthritis Mother Evelia Raymundo Heart disease Father Willy Rios Diabetes Father Willy Rios Hypertension Father Willy Rios Hearing loss Father Willy Rios Long QT syndrome Sister No Known Problems Brother No Known Problems Son No Known Problems Daughter Early natural Sister Guerda Vital Past Medical History: Diagnosis Date Depression ([facility]) 07/1999 Headache 06/2022 History of hyperthyroidism Hypertension ([facility]) 08/2022 Ovarian cyst Thyroid nodule greater than or equal to 1.5 cm in diameter incidentally noted on imaging study ([facility]) 09/25/2022 Seen on Carotid Dopplers Varicella 1972 Past Surgical History: Procedure Laterality Date COLONOSCOPY 2010 normal CYST REMOVAL 2011 Procedure:benign paratubal cyst fallopian;Disease: DEXA BONE DENSITY 2013 ENDOMETRIAL BIOPSY 2012 FNA W IMAGING GUIDANCE 01/12/2023 thyroid NECK SURGERY 07/15/2023 Exploration with control of cervical hematoma OTHER SURGICAL HISTORY 2013 mammogram PAP SMEAR 03/01/2012 PELVIC LAPAROSCOPY 2012 laparoscopy-operative TOTAL THYROIDECTOMY 07/15/2023 TUBAL LIGATION Bilateral 1988 Visit Vitals BP 124/68 Pulse 68 Ht 5' 7 Wt 144 lb SpO2 100% BMI 22.55 kg/m Smoking Status Former BSA 1.76 m Review of Systems Respiratory: Negative for shortness of breath. Cardiovascular: Negative for chest pain and palpitations. Neurological: Positive for headaches. Objective Physical Exam Constitutional: General: She is not in acute distress. Appearance: Normal appearance. HENT: Head: Normocephalic. Neck: Vascular: No carotid bruit. Cardiovascular: Rate and Rhythm: Normal rate and regular rhythm. Pulmonary: Effort: Pulmonary effort is normal. No respiratory distress. Breath sounds: Normal breath sounds. Neurological: General: No focal deficit present. Mental Status: She is alert and oriented to person, place, and time. Psychiatric: Mood and Affect: Mood normal. Assessment/Plan Problem List Items Addressed This Visit Hypercholesteremia (CMS/HCC) Relevant Medications atorvastatin (Lipitor) 20 MG tablet Hypoglycemia - Primary Father with Diabetes One episode sweaty and dizzy No follow-ups on file. 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 Vitamin D deficiency [facility] Diagnosis Elevated BP without diagnosis of hypertension- [...] Primary Hypoglycemia, unspecified Hypercholesteremia (CMS/HCC) Pure hypercholesterolemia Hallux valgus of left foot- Primary Bunion, left foot Bunion Callus Corns and callosities Porokeratosis Other specified congenital anomaly of skin Pain in both feet [facility] Diagnosis Hypoglycemia- Primary Hypoglycemia, unspecified Hypercholesteremia (CMS/HCC) Pure hypercholesterolemia [facility] Diagnosis Elevated BP without diagnosis of hypertension- [...] Primary Hypoglycemia, unspecified Hypercholesteremia (CMS/HCC) Pure hypercholesterolemia Nail dystrophy- Primary Other specified disease of nail Pain of right great toe Hallux valgus of left foot Callus Corns and callosities documented in this encounter [facility] Narrative No data available for this section [facility] No data available for this section [facility] Discharge instructions Additional Instructions DISCHARGE INSTRUCTIONS FOR [...] office to follow up in one week. [][facility] Work Phone: Progress note No data available for this section [facility] Summary Purpose Family History No Family History [...] CREATED AUTHOR AUTHOR'S ORGANIZ ATION 05/28/2023 [facility] DATE CREATED AUTHOR AUTHOR'S ORGANIZ ATION 08/18/2023 [facility] DATE CREATED AUTHOR AUTHOR'S ORGANIZ ATION 04/25/2024 [facility] EPIC Patient Care team [...] August 16, 2023 End: August 16, 2023 [employer] Start Date End Date Timothy Dominguez MD [address] [facility] [address] [place] [address] PCP - General Family Medicine 07/15/22 Cecy Hadley MD [address] [facility] [address] [place] [address] Referring Physician Otolaryngology 08/24/23 Mitchell Nelson DO [address] [place] [address] Otolaryngology 08/24/23 Eric Armenta MD [address] [place] [address] Endocrinology 08/24/23 [employer] Special[employer] Start Date End Date Timothy Dominguez MD [address] [facility] [address] [place] [address] PCP - General Family Medicine 07/15/22 Cecy Hadley MD [address] [facility] [address] [place] [address] Referring Physician Otolaryngology 08/24/23 Mitchell Nelson DO [address] [place] [place] [address] Otolaryngology 08/24/23 Eric Armenta MD [address] [place] [address] Endocrinology 08/24/23 [employer] Specialty Start Date End Date Timothy Dominguez MD [address] [facility] [address] [place] [address] PCP - General Family Medicine 07/15/22 Cecy Hadley MD [address] [facility] [address] [place] [address] Referring Physician Otolaryngology 08/24/23 Mitchell Nelson DO [address] [place] [address] Otolaryngology 08/24/23 Eric Armenta MD [address] [place] [address] Endocrinology 08/24/23 [employer] Specialty Start Date End Date Timothy Dominguez MD [address] [facility] [address] [place] [address] PCP - General Family Medicine 07/15/22 Cecy Hadley MD [address] [facility] [address] [place] [address] Referring Physician Otolaryngology 08/24/23 Mitchell Nelson DO [address] [place] [address] Otolaryngology 08/24/23 Eric Armenta MD [address] [place] [address] Endocrinology 08/24/23 [employer] Relationship Specialty Start Date End Date Timothy Dominguez MD [address] [facility] [address] [place] [address] PCP - General Family Medicine 07/15/22 Cecy Hadley MD [address] [facility] [address] [place] [address] Referring Physician Otolaryngology 08/24/23 Mitchell Nelson DO [address] [place] [address] Otolaryngology 08/24/23 Eric Armenta MD [address] [place] [address] Endocrinology 08/24/23 Goals (unrecognized section and content) Goals may be documented in a n alternate section Reason for Visit (unrecogniz ed section and content) Reason Comments THYROID Reason Comments 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 No recent xrays, no txts tried. Also relates bumps on the right foot, painful with pressure. SS: 8-8.5 Reason Comments Hypertension Reason Comments Follow-up Established pt prese nts today for 2 month fuv for bunion and callus. Pt relates these issues are resolved at this time, pt states she kept appt because she has been having pain with RGT, possibly an ingrown nail. Pt states pain has been waking her up at night, ongoing for a couple weeks. Denies infection. SS: 8-8.5 FOR RECORDS PERTAINING TO PATIENTS WHO ARE [...] BE BASED ON THE PRIMARY CLINICAL RECORDS. [employer] provides no warranty or guarantee of the accuracy or completeness of information in this document.
[2024-05-26 08:15] LABS: Free T4 1.76 ng/dL (0.76-1.46)
[2024-05-26 08:20] LABS: Free T3 2.82 pg/mL (2.18-3.98); Thyroid Stimulating Hormone 0.351 uIU/mL (0.358-3.740)
== END 2024-05-26 07:02 | disposition home or self-care (01) ==
LOC: LAB 07:03
PROVIDERS: PCP Family Medicine; Visit Provider Internal Medicine
DX: E89.0 Postprocedural hypothyroidism (principal)
CPT/HCPCS: 36415; 84439; 84443; 84481

== ENCOUNTER 2025-01-05 06:55 | Outpatient (OUT) | payer OTHER, SELFPAY ==
--- NOTE | 2025-01-05 06:57 | MM_ITS ---
Patient Name: JUAN ANTONIO KEATING MR#: [id number] : 1960 Exam Date: 01/05/2025 Ordering Doctor: DR MARY ANN DOMINGUEZ M.D. RADIOLOGY REPORT PROCEDURE: MM TOMOSYNTHESIS SCREENING BI COMPARISON: MM TOMOSYNTHESIS SCREENING BI, 01/05/2024. MM TOMOSYNTHESIS SCREENING BI, 12/29/2022. MG MAMM SCREEN 3D KELLEY CAD, 12/24/2021. MG MAMM KELLEY SCRN W CAD DIG, 07/27/2013. INDICATIONS: Screening Calculator Name NCI Breast Cancer Risk Assessment Tool 5 Year Breast Cancer Risk 1.20% Lifetime Breast Cancer Risk 4.40% Personal Breast Cancer No Personal Ovarian Cancer No Treatments None Family Cancers None LOCATION: [facility] BREAST COMPOSITION: The breasts are extremely dense, which lowers the sensitivity of mammography. FINDINGS: RIGHT BREAST: No significant suspicious finding. Similar focal asymmetries are noted. LEFT BREAST: No significant suspicious finding. Similar focal asymmetries are noted. Benign-appearing calcifications are noted. DIAGNOSTIC CATEGORY 2--BENIGN FINDING. NO CHANGE FROM COMPARISON. RECOMMENDATIONS: ROUTINE MAMMOGRAM AND CLINICAL EVALUATION IN 12 MONTHS. Dictated by: Tarik Jolly MD on 01/05/2025 at 11:29 Approved by: Tarik Jolly MD on 01/05/2025 at 12:12
--- OUTSIDE RECORDS SUMMARY | 2025-01-05 06:57 | XMS_ITS | Clinical Summary ---
Author Organization [facility] Address [address] [place] [address] Care Team Providers Care Alodize Machine Helper Name Role Phone Joseph Schmid MD Primary Care Provider [phone] Allergies No known active allergies Medications MedicationSigDispense QuantityRefillsLast FilledStart DateEnd DateStatus multivitamin tablet Take 1 tablet by mouth once daily.ctive Calcium-Vitamin D3-Vitamin K (VIACTIV) 500-500-40 mg-unit-mcg Chew Take by mouth.ctive GLUCOSAMINE HCL/GLUC BRAND (GLUCOSAMINE COMPLEX ORAL) Take by mouth.Active Active Problems ProblemNoted DateDiagnosed DateLeukopenia Family History RelationStatusCommentsBrotherAliveFatherAliveMotherAliveSisterAlive Social History Tobacco UseTypesPacks/DayYears UsedDateSmoking Tobacco: NeverSmokeless Tobacco: NeverAlcohol UseStandard Drinks/WeekCommentsYes0 (1 standard drink = 0.6 oz pure alcohol)sociallyCommentsNoSex and Gender InformationValueDate Recorded Sex Assigned at BirthNot on fileLegal BlwTxpgsl90/06/2013 2:53 PM EDTGender IdentityNot on fileSexual OrientationNot on file Last Filed Vital Signs Vital SignReadingTime TakenCommentsBlood Lxnmggit681/7409/28/2012 9:52 AM EDT Xszic751809/28/2012 9:52 AM WRXWhgfhrczwlv56.8 ??C (98.2 ??F)09/28/2012 9:52 AM EDTRespiratory Wicq809609/28/2012 9:52 AM EDTOxygen Saturation--Inhaled Oxygen Concentration--Jlsuoy28 kg (136 lb 9.6 oz)09/28/2012 9:52 AM AVKAndcio683.2 cm (5' 7 )09/28/2012 9:52 AM EDTBody Mass Index21.39009/28/2012 9:52 AM EDT Plan of Treatment Health MaintenanceDue DateLast DoneCommentsAnxiety Xsjiobotp25/08/1977Depression Wbcimdypf67/08/1977Hepatitis C Xrhglcqbj50/08/1977DTaP,Tdap,Td Vaccine (1 - Tdap)1977Mammogram Mpydyfsur44/08/1999CT Xrpyiaivfhsz99/08/2004Cologuard (FIT-DNA)09/23/20032886Iqauesdvyij67/08/2004Colorectal Cancer Amsxwypqx69/08/2004 Fecal Occult Blood09/23/2003Lipid Vjeyyfxfn95/08/6073Zqioonjrnlbbf79/08/2004 Pneumococcal Vaccine: 50+ (1 of 1 - PCV)2008Shingrix Vaccine (1 of 2) 2008Diabetes Rssvjuiab81one Density Czajxsxvh08/08/2024 Advance Directive Wnbuzljrmn69/01/2025ovid-19 Vaccine (1 - 2024- season) 2024Influenza Vaccine (#1)2024RSV Vaccine (1 - 1-dose 75+ series) 2033 Procedures Procedure NamePriorityDate/TimeAssociated DiagnosisCommentsCOMPREHENSIVE METABOLIC PIJXNBekvwaj58/14/2013 10:49 AM EDT Leukopenia from Last 3 Months or Most Recently Relevant to Health Maintenance Results * (ABNORMAL) COMP METABOLIC PANEL (09/28/2012 10:49 AM EDT)ComponentValueRef RangeTest MethodAnalysis TimePerformed AtPathologist SignatureProtein, Total 7.46.0 - 8.4 g/dLFULTON COUNTY HEALTH CENTER MAIN LABORATORYAlbumin4.53.5 - 5.0 g/dL [facility] MAIN LABORATORYCalcium9.68.5 - 10.5 mg/dLBARNESVILLE HOSPITAL LABORATORYBilirubin, Total0.70.0 - 1.5 mg/dLBARNESVILLE HOSPITAL LABORATORYAlkaline Rlrriucypoe3788 - 150 U/[facility] USI376 - 40 U/[facility] AMGTIGHCKSRzaagzy6016 - 100 mg/dL [facility] LRAVMBOHYULWI641 - 25 mg/dLBARNESVILLE HOSPITAL LABORATORYCreatinine0.62(L)0.70 - 1.40 mg/dLBARNESVILLE HOSPITAL LABORATORY Wjdlcq228212 - 148 mmol/LCGLENBEIGH [facility]OSPITAL LABORATORYPotassium3.83.5 - 5.0 mmol/LCGL[facility]IGH [facility] WOPUDZVBDNGwfzxzzq12627 - 110 mmol/LCGL[facility] UOAGEMGFUZIP76233 - 32 mmol/LCGLENBEIGH [facility] LABORATORYAnion Eym922 - 15 mmol/LCGL[facility]IGH [facility] SHDNXTFBURDEK941 - 45 U/LCGLENBEIGH HOSPITAL LABORATORYeGFR->60B[facility] eGFR-All Other Races>60.[facility] LABORATORYComment: eGFR (Estimated GFR) Units of measure: mL/min/1.73 meters squared eGFR is derived from the reexpressed MDRD Study equation using the following parameters: serum creatinine, age, gender and race. The creatinine assay has been calibrated to be traceable to IDMS. An eGFR <60 mL/min/1.73m2 for >3 months is consistent with chronic kidney disease. Refer to KDOQI guidelines for clinical interpretation. Specimen (Source)Anatomical Location / LateralityCollection Method / Volume Collection TimeReceived TimeBlood specimen (specimen)BLOOD SPECIMEN / Unknown 09/28/2012 10:49 AM EDT09/28/2012 5:20 PM EDT Narrative Authorizing ProviderResult TypeResult StatusClark Hunter DOLABORATORY Final ResultPerforming OrganizationAddressCity/State/ZIP CodePhone Number [facility] [address] [place] [address] from Last 3 Months or Most Recently Relevant to Health Maintenance Insurance Care Teams Team MemberRelationshipSpecialtyStart DateEnd Date Joseph Schmid MD [facility]09[facility]20/12
--- OUTSIDE RECORDS SUMMARY | 2025-01-05 06:57 | XMS_ITS | Clinical Summary ---
Author Organization [employer] [facility] Address [id number] [address] [place] [address] Care Team Providers Care System Support Developer Name Role Phone Unavailable Primary Care Provider Unavailabl e Social History Tobacco UseTypesPacks/DayYears UsedDateSmoking Tobacco: Never AssessedChildcare AnswerDate DbkaguraMrloaioswRzopljm96/12/2019EmploymentAnswerDate Recorded RzpgdufxvuYvwjtxk91/12/2019CommentsUnknownSex and Gender Information ValueDate RecordedSex Assigned at BirthNot on fileLegal XyfQxdqye36/06/2015 11:33 AM EDTGender IdentityNot on fileSexual OrientationNot on file Plan of Treatment Health MaintenanceDue DateLast DoneCommentsDepression Vqdjluvlv62/08/1971Tobacco Fzmzjhoik18/08/1971Adult BMI Jnkrhjsng48/08/1977DTaP,Tdap and Td Vaccines (1 - Tdap)1977Zoster (Shingles) Vaccine (1 of 2)2008Fall Risk Screening 09/23/2023Influenza Qvvveuo3010/16/2024RSV ( or age 60+ yrs) (1 - 1-dose 75+ series)4Pap CgqpcEfkytlolgbuc32/29/2016 Medical Devices Not on file Procedures Procedure NamePriorityDate/TimeAssociated DiagnosisCommentsHIGH RISK HPV W/KATYA Tceyqqq8911/14/2015 12:00 PM EDT from Last 3 Months or Most Recently Relevant to Health Maintenance Results * High risk HPV w/katya (11/14/2015 12:00 PM EDT)ComponentValueRef RangeTest MethodAnalysis TimePerformed AtPathologist SignatureHpv specimen typeThinPrep 11/18/2015 3:06 PM EDTSUNQUESTHpv 25PbcvcxpsPqvlaxqi64/04/2016 1:30 PM EDT [facility] LABORATORYHpv 30FhadwaejCjymjkzs29/04/2016 1:30 PM [facility] LABORATORYOther high risk hpvNegativeNegative 11/19/2015 1:30 PM [facility] LABORATORYComment: HPV types 31,33,35,39,45,52,56,58,59,66 and 68 DNA were undetectable. Specimen (Source)Anatomical Location / LateralityCollection Method / Volume Collection TimeReceived Time11/14/2015 12:00 PM EDT1 3:06 PM EDT Narrative Authorizing ProviderResult TypeResult StatusTracy Theresa John DELIVERY REP-CNMLAB BLOOD ORDERABLESFinal ResultPerforming OrganizationAddressCity/State/ZIP CodePhone Number [facility] [address] [place] [address], [place] SUN[place] from Last 3 Months or Most Recently Relevant to Health Maintenance
--- OUTSIDE RECORDS SUMMARY | 2025-01-05 06:57 | XMS_ITS | Clinical Summary ---
Author Organization [facility] Address [address] [place] [address] Care Team Providers Care Soyfreeze Operator Name Role Phone Timothy Dominguez MD Primary Care Provider [phone] Cecy Lockhart MD Unavailable [phone] Mitchell Nelson DO Unavailable [phone] Eric Gay MD Unavailable [phone] Allergies No known active allergies Medications MedicationSigDispense QuantityRefillsLast FilledStart DateEnd DateStatus magnesium 250 MG tablet 1 (one) time each day at the same time.Active Multiple Vitamin (Multivitamin Adult) tablet Active omega-3 (Fish Oil) 500 MG capsule 1 capsule every 12 (twelve) hoursActive Calcium Carbonate (CALCI-CHEW PO) Active glucosamine-chondroitin 500-400 MG tablet Take 1 tablet by mouth DailyActive olmesartan (BENIcar) 20 MG tablet Indications:Elevated BP without diagnosis of hypertensionTAKE 1 TABLET BY MOUTH EVERY DAY IN THE MORNING 100 tablet 4Active levothyroxine (Synthroid, Levoxyl) 112 MCG tablet Indications:Postoperative hypothyroidismTake 1 tablet (112 mcg) by mouth Daily 90 tablet 5Active atorvastatin (Lipitor) 20 MG tablet Indications:HypercholesteremiaTAKE 1 TABLET BY MOUTH EVERY DAY 100 tablet 3095Active Active Problems ProblemNoted DateDiagnosed DateTension-type headache, not sllfrsvnomb76/15/2025 Assessment & Plan (10/30/2024 8:29 AM EDT): Massage Ibuprofen Consider Muscle relaxers Acquired /10/2025 Assessment & Plan (04/24/2024 8:27 AM EDT): Sees Dr. Gay regular Ytnpherimbbe60/10/2024 Assessment & Plan (10/26/2023 11:20 AM EDT): Father with Diabetes One episode sweaty and dizzy HTN (hypertension)06/27/2023 Assessment & Plan (10/30/2024 8:29 AM EDT): Our specific goals, for your hypertension, is to keep your blood pressure less than 140/90, and theimportance of weight control. We made recommendations on how to control your blood pressure, and minimize your risk of these copmplications. We also discussed your current barriers to a healthy living and importance of healthy diet and exercise. Prior to your visit today we have reviewed your chart and formed a plan to assist with providing you the best possible care. We reviewed the possible complications of hypertension including, stroke, heart failure and kidney impairment. In addition, we discussed your medications, the importance of taking them as prescribed. DASH diet handouts Assessment & Plan (04/24/2024 8:21 AM EDT): Our specific goals, for your hypertension, is to keep your blood pressure less than 140/90, and theimportance of weight control. We made recommendations on how to control your blood pressure, and minimize your risk of these copmplications. We also discussed your current barriers to a healthy living and importance of healthy diet and exercise. Prior to your visit today we have reviewed your chart and formed a plan to assist with providing you the best possible care. We reviewed the possible complications of hypertension including, stroke, heart failure and kidney impairment. In addition, we discussed your medications, the importance of taking them as prescribed. DASH diet handouts Vclbjqkuxwrpve10/12/2024 Assessment & Plan (04/24/2024 8:27 AM EDT): This is a chronic medical condition that is stable since last assessment. No changes in treatment are suggested at this time. Continue Current meds. Sharon's doxiohbdjny25/25/2024 Assessment & Plan (05/10/2023 3:15 PM EDT): This is a chronic medical condition that is stable since last assessment. No changes in treatment are suggested at this time. Continue Current meds. On Methimazole Qvhjzdfmnkacgvr68/03/2024enign essential /19/2023 Assessment & Plan (05/10/2023 3:15 PM EDT): Our specific goals, for your hypertension, is to keep your blood pressure less than 140/90, and theimportance of weight control. We made recommendations on how to control your blood pressure, and minimize your risk of these copmplications. We also discussed your current barriers to a healthy living and importance of healthy diet and exercise. Prior to your visit today we have reviewed your chart and formed a plan to assist with providing you the best possible care. We reviewed the possible complications of hypertension including, stroke, heart failure and kidney impairment. In addition, we discussed your medications, the importance of taking them as prescribed. DASH diet handouts Abnormal glucose tolerance test11/03/2022Nontoxic multinodular qrzbuw9910/09/2022 Thyroid tfeond7709/29/2022 Overview (09/29/2022): Left Assessment & Plan (05/10/2023 3:16 PM EDT): Surgery planned 06/10/2023 Iqlzlpcsko53/15/2023Unintentional weight loss09/29/2022Elevated BP without diagnosis of igvklxgzyacj58/31/2023 Assessment & Plan (11/03/2022 8:59 AM EDT): Our specific goals, for your hypertension, is to keep your blood pressure less than 140/90, and theimportance of weight control. We made recommendations on how to control your blood pressure, and minimize your risk of these copmplications. We also discussed your current barriers to a healthy living and importance of healthy diet and exercise. Prior to your visit today we have reviewed your chart and formed a plan to assist with providing you the best possible care. We reviewed the possible complications of hypertension including, stroke, heart failure and kidney impairment. In addition, we discussed your medications, the importance of taking them as prescribed. DASH diet handouts Assessment & Plan (09/14/2022 3:41 PM EDT): Add hydrochlorothiazide 25 mg daily Add Potassium supplement Our specific goals, for your hypertension, is to keep your blood pressure less than 140/90, and theimportance of weight control. We made recommendations on how to control your blood pressure, and minimize your risk of these copmplications. We also discussed your current barriers to a healthy living and importance of healthy diet and exercise. Prior to your visit today we have reviewed your chart and formed a plan to assist with providing you the best possible care. We reviewed the possible complications of hypertension including, stroke, heart failure and kidney impairment. In addition, we discussed your medications, the importance of taking them as prescribed. DASH diet handouts Stop Atorvastatin for now. Bilateral carotid uklmaq533Cyst of ovary07/17/2022Estrogen deficiency 07/17/2022ilbert uvvdsyh1607/17/20229584Dvlbraesowalzzlvgc90/02/2023 Assessment & Plan (09/14/2022 3:29 PM EDT): Continue current meds Ojzcwqixvc34/02/2023Osteopenia of lumbar spine07/17/2022Other primary ovarian qppscqj4407/17/2022 Encounters DateTypeDepartmentCare XpstWtvpruhgeqw48/25/2025Results Follow-Up [facility] [place] [facility] [address] [facility] [address] [place] [address] Timothy Dominguez MD Lipid panel, Comprehensive metabolic panel, CBC10/30/2024 8:00 AM EDTOffice Visit [facility] [place] [facility] [address] [facility] [address] [place] [address] Timothy Dominguez MD Primary hypertension (Primary Dx); Tension-type headache, not intractable, unspecified chronicity ebvcjzn3110/30/2024 Bamboo flowsheet [facility] [place] [facility] [address] [facility] [address] [place] [address] Timothy Dominguez MD 10/30/20245399Wwrflh86/08/4499Kllffp38/04/2025Refill [facility] [place] [facility] [address] [facility] [address] [place] [address] Timothy Dominguez MD Hypercholesteremiafrom Last 3 Months Immunizations ImmunizationAdministration DatesNext ZclNCG9407/06/2012 Family History Medical HistoryRelationNameCommentsNo Known ProblemsBrotherNo Known Problems DaughterDiabetesFatherJohn GoodhandHearing lossFatherJohn GoodhandHeart disease FatherJohn GoodhandHypertensionFatherJohn GoodhandArthritisMotherRebecca Zackary DementiaMotherRebecca WilsonHypertensionMotherRebecca WilsonLong QT syndrome Sister 1Early natural deathSister 2Anne LangstonNo Known ProblemsSonRelationName StatusCommentsBrotherAliveDaughterAlive3 daughtersFatherJohn GoodhandDeceased MotherRebecca WilsonDeceasedSister 1Sister 2Anne LangstonSonAlive2 sons Social History Tobacco UseTypesPacks/DayYears UsedDateSmoking Tobacco: FormerCigarettes0.34 Smokeless Tobacco: Never Tobacco Cessation:Counseling Given: Yes Alcohol UseStandard Drinks/WeekCommentsNot Currently0 (1 standard drink = 0.6 oz pure alcohol)Occasional social kmvwujR8212 Health LiteracyAnswerDate RecordedHow often do you need to have someone help you when you read instructions, pamphlets, or other written material from your doctor or pharmacy?Never 10/25/2023Humiliation, Afraid, Rape, and Kick questionnaireAnswerDate Recorded Within the last year, have you been afraid of your partner or ex-partner?No 07/15/2022Within the last year, have you been humiliated or emotionally abused in other ways by your partner or ex-partner?No07/15/2022Within the last year, have you been kicked, hit, slapped, or otherwise physically hurt by your partner or ex-partner?No07/15/2022Within the last year, have you been raped or forced to have any kind of sexual activity by your partner or ex-partner?No07/15/2022 Social Connection and Isolation PanelAnswerDate RecordedIn a typical week, how many times do you talk on the phone with family, friends, or neighbors?More than three times a week10/25/2023How often do you get together with friends or relatives?More than three times a week10/25/2023How often do you attend cheondoism or yazidism services?Patient zgsroeje11/09/2024o you belong to any clubs or organizations such as cheondoism groups, unions, [employer] or athletic groups, or school groups?Patient dvhewrpc56/09/2024How often do you attend meetings of the clubs or organizations you belong to?Patient wqfugime06/09/2024re you , , , , never , or living with a partner? 10/25/2023UDIT-CAnswerDate RecordedQ1: How often do you have a drink containing alcohol?Monthly or less10/25/2023Q2: How many drinks containing alcohol do you have on a typical day when you are drinking?1 or Q3: How often do you have six or more drinks on one occasion?Never10/25/2023Overall Financial Resource Strain (CARDIA)AnswerDate RecordedHow hard is it for you to pay for the very basics like food, housing, medical care, and heating?Not hard at all 10/25/2023HQ-2AnswerDate RecordedPatient Health Questionnaire-2 Score0 10/30/2024[facility] [place] [facility] - Occupational Stress QuestionnaireAnswerDate RecordedDo you feel stress - tense, restless, nervous, or anxious, or unable to sleep at night because yourmind is troubled all the time - these days?Only a rbopat5410/25/2023Exercise Vital SignAnswerDate Recorded On average, how many days per week do you engage in moderate to strenuous exercise (like a brisk walk)?5 days10/25/2023On average, how many minutes do you engage in exercise at this level?60 min10/25/2023Hunger Vital SignAnswerDate RecordedWithin the past 12 months, you worried that your food would run out before you got the money to buymore.Never true10/25/2023Within the past 12 months, the food you bought just didn't last and you didn't have money to get more.Never true10/25/2023RAPARE - TransportationAnswerDate RecordedIn the past 12 months, has lack of transportation kept you from medical appointments or from getting medications?No10/25/2023In the past 12 months, has lack of transportation kept you from meetings, work, or from getting things needed for daily living?No10/25/2023Housing Stability Vital SignAnswerDate RecordedIn the last 12 months, was there a time when you were not able to pay the mortgage or rent on time?No07/15/2022In the last 12 months, how many places have you lived?1 07/15/2022In the last 12 months, was there a time when you did not have a steady place to sleep or slept [facility] (including now)?No07/15/2022Housing Stability Vital SignAnswerDate RecordedIn the last 12 months, was there a time when you were not able to pay the mortgage or rent on time?No10/25/2023In the past 12 months, how many times have you moved where you were living? At any time in the past 12 months, were you homeless or living in a correction (including now)?No10/25/2023CommentsUnknownSex and Gender Information ValueDate RecordedSex Assigned at BirthNot on fileLegal KyiZdfkde68/15/2023 6:44 PM EDTGender IdentityNot on fileSexual OrientationNot on file Last Filed Vital Signs Vital SignReadingTime TakenCommentsBlood Gkjcuejc124/6809 8:06 AM EDT Wzqsv3528/15/2025 8:06 AM EDTTemperature--Respiratory Ziqm518910/30/2024 8:06 AM EDTOxygen Pctskpbrnm01%10/30/2024 8:06 AM EDTInhaled Oxygen Concentration-- Jfxfda83.7 kg (136 lb)10/30/2024 8:06 AM NJAXduity840.2 cm (5' 7 )10/30/2024 8:06 AM EDTBody Mass Index21.309 8:06 AM EDT Plan of Treatment DateTypeDepartmentCare Team (Latest Contact Info)Zmyfjvikcah69/16/2026 8:00 AM EDTOffice Visit [facility] [place] [facility] [address] [address] [place] [phone] Timothy Dominguez MD [address] [place] [address] 06/07/2025 9:00 AM EDTOffice Visit [facility] [address] [place] [phone] Eric Gay MD [address] [place] [address] Health MaintenanceDue DateLast DoneCommentsCT Vkeddeppqmwr63/08/1959Colonoscopy 1960FIT1960FOBT1960 7418Grdhwdbehlbyr86/08/1959Pneumococcal Vaccine: 65+ Years (1 of 1 - PCV)2008COVID-19 Vaccine (3 - 2024- season) /04/2020, 05/27/2020Influenza Vaccine (#1)2024Mammogram /, 12/30/2022, 12/24/2021, Additional history exists Colorectal Cancer Jmrgtcjlt18/12/2027FIT-DNA, 05/17/2020, 05/17/2020 Procedures Procedure NamePriorityDate/TimeAssociated LdvtkvhexJkgnjyfzVHNOxgeygg09/24/2025 8:04 AM EDT Primary hypertension COMPREHENSIVE METABOLIC ZQLQZCsohvht40/24/2025 8:04 AM EDT Primary hypertension LIPID YCLDKIonosyu46/ 8:04 AM EDT Primary hypertension MM TOMOSYNTHESIS SCREENING BI01/05/2024 9:31 AM EST LAB COLOGUARD?? COLON CANCER YWBBZTWreuyqy59/12/2024 6:00 AM EDT Encounter for screening for colorectal malignant neoplasm from Last 3 Months or Most Recently Relevant to Health Maintenance Results * (ABNORMAL) CBC (11/08/2024 8:04 AM EDT)ComponentValueRef RangeTest Method Analysis TimePerformed AtPathologist SignatureWHITE BLOOD CELL COUNT3.4(L)3.8 - 10.8 Thousand/uLQUESTRED BLOOD CELL COUNT3.75(L)3.80 - 5.10 Million/uLQUEST BWUMZOYXJT17.5(L)11.7 - 15.5 g/bDXPXEPDTOSILJPKQ61.5(L)35.0 - 45.0 %QUESTMCV 92.080.0 - 100.0 kWSMUBVQMT58.727.0 - 33.0 tyZCDBDHATP82.332.0 - 36.0 g/dL QUESTComment: For adults, a slight decrease in the calculated MCHC value (in the range of 30 to 32 g/dL) is most likely not clinically significant; however, it should be interpreted with caution in correlation with other red cell parameters and the patient's clinical condition. RDW12.511.0 - 15.0 %QUESTPLATELET RLJHN011076 - 400 Thousand/uLQUESTMPV9.27.5 - 12.5 fLQUESTSpecimen (Source)Anatomical Location / LateralityCollection Method / VolumeCollection TimeReceived TimeBloodVenous blood specimen / Xorqqbm3011/08/2024 8:04 AM EDT11/08/2024 2:58 PM EDT Narrative [facility] - 11/09/2024 2:58 AM EDT FASTING:YES FASTING: YES Resulting Agency Comment Performing Organization Information ?Site ID: QTW ?Name: [facility] ?Address: [address] [place] [id number] ?Director: Elis Berrios Authorizing ProviderResult TypeResult StatusTimothy PINA BLOOD ORDERABLES Final ResultPerforming OrganizationAddressCity/State/ZIP CodePhone Number QUEST * Lipid panel (11/08/2024 8:04 AM EDT)ComponentValueRef RangeTest MethodAnalysis TimePerformed AtPathologist SignatureCHOLESTEROL, JCCFF244<200 mg/dLQUESTHDL RUDQUDPIOHP38> OR = 50 mg/gNNPDAWPCHQVZCRWVAKR33<150 mg/dLQUESTLDL CHOLESTEROL 98mg/dL (calc)QUESTComment: Reference range: <100 Desirable range <100 mg/dL for primary prevention; <70 mg/dL for patients with CHD or diabetic patients with > or = 2 CHD risk factors. LDL-C is now calculated using the Sourav calculation, which is a validated novel method providing better accuracy than the Friedewald equation in the estimation of LDL-C. Hector CHA et al. GUS. 2013;310(19): 0931-9410 (http://education.[employer].Granify/faq/TRJ601) CHOL/HDLC RATIO2.8<5.0 (calc)QUESTNON HDL UQPFIGOMOZO414<130 mg/dL (calc)QUEST Comment: For patients with diabetes plus 1 major ASCVD risk factor, treating to a non-HDL-C goal of <100 mg/dL (LDL-C of <70 mg/dL) is considered a therapeutic option. Specimen (Source)Anatomical Location / LateralityCollection Method / Volume Collection TimeReceived TimeBloodVenous blood specimen / Syphmjg3011/08/2024 8:04 AM EDT11/08/2024 2:58 PM EDT Narrative [facility] - 11/09/2024 2:58 AM EDT FASTING:YES FASTING: YES Resulting Agency Comment Performing Organization Information ?Site ID: QPT ?Name: [facility] ?Address: [address] [place] [address], [address] [place] [phone] ?Director: Cooper Burrows MD Authorizing ProviderResult TypeResult StatusTimohty PINA BLOOD ORDERABLES Final ResultPerforming OrganizationAddressCity/State/ZIP CodePhone Number [facility]ST * (ABNORMAL) Comprehensive metabolic panel (11/08/2024 8:04 AM EDT)Component ValueRef RangeTest MethodAnalysis TimePerformed AtPathologist SignatureGlucose 8465 - 99 mg/dLQUESTComment: ? Fasting reference interval WLX928 - 25 mg/dLQUESTCreatinine0.580.50 - 1.05 mg/mPNCCWANGVR808> OR = 60 mL/min/1.66a8BSICYTPZ/CREATININE RATIOSEE NOTE: - (calc)QUESTComment: ?? Not Reported: BUN and Creatinine are within ?? reference range. ? Trfmqy552602 - 146 mmol/LQUESTPotassium, Bld4.33.5 - 5.3 mmol/OWLYBFDanaaxbi559 98 - 110 mmol/LQUESTCarbon Fxpbiwn1595 - 32 mmol/LQUESTCalcium9.58.6 - 10.4 mg/dLQUESTPROTEIN, TOTAL6.86.1 - 8.1 g/dLQUESTALBUMIN4.63.6 - 5.1 g/dLQUEST GLOBULIN2.21.9 - 3.7 g/dL (calc)QUESTALBUMIN/GLOBULIN RATIO2.11.0 - 2.5 (calc) QUESTBILIRUBIN, TOTAL1.3(H)0.2 - 1.2 mg/dLQUESTALKALINE CZACYWONQXM8161 - 153 U/EAMNZOJKH4686 - 35 U/VGMDTIXWK661 - 29 U/LQUESTSpecimen (Source)Anatomical Location / LateralityCollection Method / VolumeCollection TimeReceived TimeBlood Venous blood specimen / Wcjlyhg4211/08/2024 8:04 AM EDT11/08/2024 2:58 PM EDT Narrative [facility] - 11/09/2024 2:58 AM EDT FASTING:YES FASTING: YES Resulting Agency Comment Performing Organization Information ?Site ID: QTW ?Name: [facility] ?Address: [address] [place] [phone] ?Director: Elis Berrios Authorizing ProviderResult TypeResult StatusTimothy Dominguez MDLAB BLOOD ORDERABLES Final ResultPerforming OrganizationAddressCity/State/ZIP CodePhone Number QUEST * MM TOMOSYNTHESIS SCREENING BI (01/05/2024 9:31 AM EST)Anatomical Region LateralityModalityOtherSpecimen (Source)Anatomical Location / Laterality Collection Method / VolumeCollection TimeReceived Time01/05/2024 9:31 AM EST Narrative 01/05/2024 9:32 AM EST [facility] ?[address] ? [place] [address] ? Mammography Report ? Signed ? Patient: ZURIJUAN ANTONIO Hellen ?MR#: [id number] ?? : 1960 ?Acct:[id number] ?? Age/Sex: 63 / F ?ADM Date: 01/05/24 ?? Loc: MAMMO ? Attending Dr: TIMOTHY DOMINGUEZ ? Ordering Physician: TIMOTHY DOMINGUEZ ? Results: ? Date of Service: 01/05/24 ?Follow Up: ? Procedure(s): MM tomosynthesis screening BI ?? Accession Number(s): [id number] ? cc: TIMOTHY DOMINGUEZ ? Patient Name: ? JUAN ANTONIO AGUIRREURICHellen ? MR#: [id number] ? : 1960 ? Exam Date: 01/05/2024 ?? Ordering Doctor: DR TIMOTHY DOMINGUEZ M.D. ? RADIOLOGY REPORT ? PROCEDURE: ? MM TOMOSYNTHESIS SCREENING BI ? COMPARISON: ? MG MAMM SCREEN 3D [place] CAD, 12/24/2021. ??MM TOMOSYNTHESIS ?? SCREENING BI, 12/29/2022. ? INDICATIONS: ? Screening for malignant neoplasm ? Calculator Name ? NCI Breast Cancer Risk Assessment Tool ?? 5 Year Breast Cancer Risk ? 1.20% ?? Lifetime Breast Cancer Risk ? 4.60% ?? Personal Breast Cancer ?No ?? Personal Ovarian Cancer ? No ?? Treatments ? None ?? Family Cancers ? None ? LOCATION: ? [facility] ? BREAST COMPOSITION: ? The breasts are extremely dense, which lowers the ?? sensitivity of mammography. ? FINDINGS: ? DIAGNOSTIC CATEGORY 2--BENIGN FINDING. NO CHANGE FROM COMPARISON. ? Scattered benign-appearing calcifications are present. ??Scattered ?? benign-appearing nodules are present. ? RIGHT BREAST: ??No significant suspicious finding. ? LEFT BREAST: ??No significant suspicious finding. ? RECOMMENDATIONS: ? ROUTINE MAMMOGRAM AND CLINICAL EVALUATION IN 12 MONTHS. ? PLEASE NOTE: ??A NORMAL MAMMOGRAM DOES NOT EXCLUDE THE POSSIBILITY OF BREAST ?? CANCER. ??A CLINICALLY SUSPICIOUS PALPABLE LUMP SHOULD BE BIOPSIED. ? Dictated by: Kushal Addison MD on 01/05/2024 at 09:29 ? Approved by: Kushal Addison MD on 01/05/2024 at 09:30 ? Dictated By: ?Kushal Addison M.D. ? Signed By: ?01/05/24 0932 ? DD/ 0931 ? TD/TT: ? Accountant Property: Procedure Note Radiology, Radiologist, MD - 01/05/2024 [place] [address] Mammography Report Signed Patient: JUAN ANTONIO BACA AMR#: [id number] : 1960cct:[id number] Age/Sex: 63 / FADM Date: 01/05/24 Loc: MAMMO Attending Dr: TIMOTHY DOMINGUEZ Ordering Physician: Jose DOMINGUEZults: Date of Service: 01/05/24Follow Up: Procedure(s): MM tomosynthesis screening BI Accession Number(s): [id number] cc: TIMOTHY DOMINGUEZ Patient Name: JUAN ANTONIO BACA MR#: [id number] : 1960 Exam Date: 01/05/2024 Ordering Doctor: DR TIMOTHY DOMINGUEZ M.D. RADIOLOGY REPORT PROCEDURE: MM TOMOSYNTHESIS SCREENING BI COMPARISON: MG MAMM SCREEN 3D [place] CAD, 12/24/2021. MM TOMOSYNTHESIS SCREENING BI, 12/29/2022. INDICATIONS: Screening for malignant neoplasm Calculator Name NCI Breast Cancer Risk Assessment Tool 5 Year Breast Cancer Risk 1.20% Lifetime Breast Cancer Risk 4.60% Personal Breast Cancer No Personal Ovarian Cancer No Treatments None Family Cancers None LOCATION: [facility] BREAST COMPOSITION: The breasts are extremely dense, which lowers the sensitivity of mammography. FINDINGS: DIAGNOSTIC CATEGORY 2--BENIGN FINDING. NO CHANGE FROM COMPARISON. Scattered benign-appearing calcifications are present. Scattered benign-appearing nodules are present. RIGHT BREAST: No significant suspicious finding. LEFT BREAST: No significant suspicious finding. RECOMMENDATIONS: ROUTINE MAMMOGRAM AND CLINICAL EVALUATION IN 12 MONTHS. PLEASE NOTE: A NORMAL MAMMOGRAM DOES NOT EXCLUDE THE POSSIBILITY OFBREAST CANCER. A CLINICALLY SUSPICIOUS PALPABLE LUMP SHOULD BE BIOPSIED. Dictated by: Kushal Addison MD on 01/05/2024 at 09:29 Approved by: Kushal Addison MD on 01/05/2024 at 09:30 Dictated By: Kushal Addison M.D. Signed By:01/05/2432 DD/ 0 TD/TT: Accountant Property: Authorizing ProviderResult TypeResult StatusAntionelitzy Dominguez MDCLINISYNC IMAGING Final Result * Cologuard?? colon cancer screening (05/28/2023 6:00 AM EDT)ComponentValueRef RangeTest MethodAnalysis TimePerformed AtPathologist SignatureNONINV COLON CA DNA+OCC BLD SCRN STL-RIPFklxyqawFushiqyr28/19/2024 6:35 PM EDTEXBug Labs (CLIA #:[id number])Comment: NEGATIVE TEST RESULT. A negative Cologuard result indicates a low likelihood that a colorectal cancer (CRC) or advanced adenoma (adenomatous polyps with more advanced pre-malignant features) ??is present. The chance that a person with a negative Cologuard test has a colorectal cancer is less than 1in 1500 (negative predictive value >99.9%) or has an advanced adenoma is less than 5.3% (negative predictive value 94.7%). These data are based on a prospective cross-sectional study of 10,000individuals at average risk for colorectal cancer who were screened with both Cologuard and colonoscopy. (Corey Santos al, N Engl J Med 2014;370(14):3930-3197) The normal value (reference range) for this assay is negative. COLOGUARD RE-SCREENING RECOMMENDATION: Periodic colorectal cancer screening is an important part ofpreventive healthcare for asymptomatic individuals at average risk for colorectal cancer. ??Following a negative Cologuard result, the [place] [employer] and U.S. Multi-Society Task Force screening guidelines recommend a Cologuard re-screening interval of 3 years. References: [place] [employer] Guideline for Colorectal Cancer Screening: https://www.cancer.or g/cancer/yvjjd-vwdypv-huwfoo/vpriczsit-lgqegbwfk-njjwdyt/acs-recommendations.htm michael; David WHITLOCK, Dave VEGA, Antonio MADERA, Colorectal Cancer Screening: Recommendations for Physicians and Patients from the U.S. Multi-Society Task Force on Colorectal Cancer Screening , Am J Gastroenterology 2017; 112:2859-6001. TEST DESCRIPTION: Composite algorithmic analysis of stool DNA-biomarkers with hemoglobin immunoassay. ?? Quantitative values of individual biomarkers are not reportable and are not associated with individual biomarker result reference ranges. Cologuard is intended for colorectal cancer screening ofadults of either sex, 45 years or older, who are at average-risk for colorectal cancer (CRC). Cologuard has been approved for use by the [place] FDA. The performance of Cologuard was established in a cross sectional study of average-risk adults aged 50-84. Cologuard performance in patients ages 45 to 49 years was estimated by sub-group analysis of near-age groups. Colonoscopies performed for a positive result may find as the most clinically significant lesion: colorectal cancer [4.0%], advanced adenoma (including sessile serrated polyps greater than or equal to 1cm diameter) [20%] or non- advanced adenoma [31%]; or no colorectal neoplasia [45%]. These estimates are derived from a prospective cross-sectional screening study of 10,000 individuals at average risk for colorectal cancer who were screened with both Cologuard and colonoscopy. (Corey Mullen, N Engl J Med 2014;370(14):1290-6145.) Cologuard may produce a false negative or false positive result (no colorectal cancer or precancerous polyp present at colonoscopy follow up). A negative Cologuard test result does not guarantee the absence of CRC or advanced adenoma (pre-cancer). The current Cologuard screening interval is every 3 years. ([place] [employer] and U.S. Multi-Society Task Force). Cologuard performance data in a 10,000 patient pivotal study using colonoscopy as the reference method can be accessed at the following location: www.[employer]ee.Granify/results. Additional description of the Cologuard test process, warnings and precautions can be found at www.cologuard.com. Specimen (Source)Anatomical Location / LateralityCollection Method / Volume Collection TimeReceived TimeStool specimen (specimen)05/28/2023 6:00 AM EDT 05/29/2023 7:18 AM EDT Narrative Authorizing ProviderResult TypeResult StatusTimothy [facility] ORDERABLESFinal ResultPerforming OrganizationAddressCity/State/ZIP CodePhone Number .OtherInbox (CLIA #:[id number]) [address] [place] [address], [place] [phone] [place] (CLIA #:[id number]) [address] [phone] from Last 3 Months or Most Recently Relevant to Health [place] [id number] Care Teams Team MemberRelationshipSpecialtyStart DateEnd Date Timothy Dominguez MD [address] [address] [facility] - [facility] Cecy Lockhart MD [address] [place] [address] Referring PhysicianOtolaryngology08/24/23 Mitchell Nelson DO [address] [place] [address] Otolaryngology08/24/23 Eric Gay MD [address] [place] [address] Endocrinology08/24/23
== END 2025-01-05 06:56 | disposition home or self-care (01) ==
LOC: MAMMO 06:55
PROVIDERS: PCP Family Medicine; Visit Provider Family Medicine
DX: Z12.31 Encounter for screening mammogram for malignant neoplasm of breast (principal)
CPT/HCPCS: 77063; 77067